=== PATIENT | female | born 1950 | race Caucasian/White ===

== ENCOUNTER → 2016-03-05 | Outpatient (REF) | payer MEDICARE, MEDICAID ==
[~2016-03-05] MED LIST: ASPI1TAB PO; LIPI80TA PO; OMEP20CA3 PO; PLAV75TA38 PO
[2016-03-05 12:43] LABS: BLOOD UREA NITROGEN 11 MG/DL (7-18); CREATININE FOR GFR 0.74 MG/DL (0.55-1.02); GLOMERULAR FILTRATION RATE > 60.0 (>45)
== END ==
LOC: M LABDRAWP 11:38
PROVIDERS: ATTEND Nurse Practitioner
DX: I67.2 Cerebral atherosclerosis (principal)

== ENCOUNTER → 2016-03-05 | Outpatient (REF) | payer MEDICARE, MEDICAID ==
[2016-03-05 12:24] LABS: MEAN CORPUSCULAR HEMOGLOBIN 28.4 pg (27.0-33.0); MEAN CORPUSCULAR HGB CONC 33.2 g/dl (32.0-36.5); MEAN CORPUSCULAR VOLUME 85.5 fl (80.0-96.0); RED CELL DISTRIBUTION WIDTH 13.8 % (11.5-14.5); WHITE BLOOD COUNT 8.8 K/mm3 (4.0-10.0)
[2016-03-05 12:29] LABS: ALBUMIN 3.4 GM/DL (3.2-5.2); ALBUMIN/GLOBULIN RATIO 0.97 (1.00-1.93); ALKALINE PHOSPHATASE 118 U/L (45-117); ALT/SGPT 24 U/L (12-78); ANION GAP 10 MEQ/L (8-16); AST/SGOT 16 U/L (15-37); BILIRUBIN,TOTAL 0.3 MG/DL (0.2-1.0); BLOOD UREA NITROGEN 12 MG/DL (7-18); CALCIUM LEVEL 8.8 MG/DL (8.8-10.2); CARBON DIOXIDE LEVEL 28 MEQ/L (21-32); CHLORIDE LEVEL 108 MEQ/L (98-107); CREATININE FOR GFR 0.65 MG/DL (0.55-1.02); GLOMERULAR FILTRATION RATE > 60.0 (>45); GLUCOSE, FASTING 100 MG/DL (80-110); POTASSIUM SERUM 4.2 MEQ/L (3.5-5.1); SODIUM LEVEL 146 MEQ/L (136-145); TOTAL PROTEIN 6.9 GM/DL (6.4-8.2)
== END ==
LOC: M SFHCPLAZ 08:21
PROVIDERS: ATTEND Nurse Practitioner Family
DX: I69.90 Unspecified sequelae of unspecified cerebrovascular disease (principal); E78.2 Mixed hyperlipidemia; E55.9 Vitamin D deficiency, unspecified; I67.2 Cerebral atherosclerosis

== ENCOUNTER → 2016-08-11 | Outpatient (CLI) | payer MEDICARE, MEDICAID ==
[~2016-08-11] MED LIST changes: +PLAV1TAB2 PO; -PLAV75TA38 PO
--- NOTE | 2016-08-11 12:13 | REP ---
Clinical: Lung screening. History of emphysema . Comparison: 09/05/2015, 03/24/2014 Technique: Axial low-dose noncontrast images from the thoracic inlet to the upper abdomen using lung screening technique. Findings: The lung brewster are well-aerated and demonstrate moderate emphysematous changes and scattered subpleural fibrosis/scarring. Few scattered soft tissue and partially calcified predominantly subpleural nodules are appreciated (right greater than left) which remains stable when compared to 03/24/2014. No consolidation, new significant nodule or mass lesion is appreciated. No pleural effusion/reaction or pneumothorax. Tracheobronchial tree is patent. Mediastinum demonstrates mild atherosclerotic changes of the coronary arteries without cardiomegaly. Impression: Lung-RADS category 2-S. Emphysematous changes and subpleural fibrosis/scarring few scattered stable nodules compared to 2014. No new, significant nodule or mass lesion identified. Recommended management includes annual low-dose CT screening. Signed by Jose Alfredo Mercedes MD 08/11/2016 08:29 A
== END ==
LOC: M RAD 07:13
PROVIDERS: ATTEND Internal Medicine Pulmonary Disease
DX: J43.1 Panlobular emphysema (principal); Z87.891 Personal history of nicotine dependence

== ENCOUNTER → 2016-08-25 | Outpatient (REF) | payer MEDICARE, MEDICAID ==
[2016-08-25 12:07] LABS: FOLATE 5.9 NG/ML; VITAMIN B12 LEVEL 675 PG/ML
[2016-08-25 12:17] LABS: ALBUMIN 3.4 GM/DL (3.2-5.2); ALBUMIN/GLOBULIN RATIO 0.94 (1.00-1.93); ALKALINE PHOSPHATASE 115 U/L (45-117); ALT/SGPT 25 U/L (12-78); ANION GAP 7 MEQ/L (8-16); AST/SGOT 16 U/L (15-37); BILIRUBIN,TOTAL 0.3 MG/DL (0.2-1.0); BLOOD UREA NITROGEN 11 MG/DL (7-18); CALCIUM LEVEL 8.9 MG/DL (8.8-10.2); CARBON DIOXIDE LEVEL 29 MEQ/L (21-32); CHLORIDE LEVEL 107 MEQ/L (98-107); CHOLESTEROL LEVEL 156 MG/DL (<200); CREATININE FOR GFR 0.75 MG/DL (0.55-1.02); GLOMERULAR FILTRATION RATE > 60.0 (>45); GLUCOSE, FASTING 108 MG/DL (80-110); POTASSIUM SERUM 3.5 MEQ/L (3.5-5.1); SODIUM LEVEL 143 MEQ/L (136-145); TRIGLYCERIDES LEVEL 98 MG/DL (<150)
== END ==
LOC: M SFHCPLAZ 07:56
PROVIDERS: ATTEND Nurse Practitioner Family
DX: E78.2 Mixed hyperlipidemia (principal); K21.0 Gastro-esophageal reflux disease with esophagitis; E55.9 Vitamin D deficiency, unspecified

== ENCOUNTER 2017-01-13 10:46 | Day surgery (SDC) | payer MEDICAID, MEDICARE ==
[~2017-01-13] VITALS: Ht 162.6 cm; Wt 68.9 kg
[~2017-01-13 10:46] MED LIST changes: +BIOT50004 PO; +PANT40TA2 PO; +VENTAER INH; +VITA100067 PO; +VITA100072 PO
[2017-01-13] MEDS ORDERED: EPINEPHrine 1MG/ML INJ 30ML MD-VIAL As Ordered ONE (11:22)
[2017-01-13] MEDS ORDERED: METHYLENE BLUE 0.5% (5MG/ML) 10 ML AMP (PROVAYBLUE)(Q9968 PER 1MG) As Ordered ONE (11:22)
[2017-01-13] MEDS ORDERED: LIDOCAINE W/EPINEPHRINE 1% 20ML VIAL As Ordered ONE (11:22)
[2017-01-13] MEDS ORDERED: PROPOFOL 500 MG/50 ML VIAL As Ordered ONE (12:04)
[2017-01-13] MEDS ORDERED: fentaNYL 250 MCG/5 ML INJECTION (J3010) As Ordered ONE (12:04)
[2017-01-13] MEDS ORDERED: MIDAZOLAM INJ 2 MG/2 ML VIAL (J2250) As Ordered ONE (12:04)
[2017-01-13] MEDS ORDERED: LR 1,000 ML IV ONE (12:15)
[2017-01-13] MEDS ORDERED: ONDANSETRON 4MG/2ML VIAL (J2405) As Ordered ONE (12:38)
[2017-01-13] MEDS ORDERED: dexameTHASONE 4 MG/ML 1ML VIAL (J1100) As Ordered ONE (12:39)
[2017-01-13] MEDS ORDERED: NEOSTIGMINE 10 MG/10 ML VIAL (J2710) As Ordered ONE (12:40)
[2017-01-13] MEDS ORDERED: ROCURONIUM BROMIDE 50 MG/5 ML VIAL As Ordered ONE (12:40)
[2017-01-13] MEDS ORDERED: GLYCOPYRROLATE INJ 0.2 MG/ML 2 ML VIAL As Ordered ONE (12:40)
[2017-01-13] MEDS ORDERED: fentaNYL 100 MCG/2 ML INJECTION (J3010) IV PRN (13:45)
[2017-01-13] MEDS ORDERED: METOCLOPRAMIDE INJ 10MG/2ML VIAL (J2765) IV PRN (13:45)
[2017-01-13] MEDS ORDERED: PERCOCET 5MG/325MG TAB PO PRN (13:45)
[2017-01-13] MEDS ORDERED: ONDANSETRON 4MG/2ML VIAL (J2405) IV PRN (13:45)
[2017-01-13] MEDS ORDERED: HYDROmorphone HCL 1 MG/ML SYRINGE (J1170) IV PRN (13:45)
[2017-01-13] MEDS ORDERED: LR 1,000 ML IV SCH ×2 (13:45)
[2017-01-13] MEDS ORDERED: ACETAMINOPH W/CODEINE #3 TAB UD PO PRN (13:45)
[2017-01-13 15:20] VITALS: BP 142/72
--- NOTE | 2017-01-13 17:53 | RO ---
DATE OF PROCEDURE: 01/13/2017 PREOPERATIVE DIAGNOSIS: Nasal septum deviation, chronic rhinitis, nasal wall collapse. POSTOPERATIVE DIAGNOSIS: Nasal septum deviation, chronic rhinitis, nasal wall collapse. OPERATIVE PROCEDURE: Septoplasty, bilateral turbinectomy and nasal wall repair. SURGEON: Dr. Abimael Adler ANESTHESIA: General. PROCEDURE: Under general anesthesia with the patient intubated. The patient was draped in the usual manner. I used pledgets soaked in adrenaline 1:1,000 and infiltrated with lidocaine and epinephrine. I started first by making an incision anterior to the inferior turbinate on both sides. I elevated the mucosa and then using the microdebrider removed a portion of the brayden on both sides. I sutured that with a 4-0 Vicryl. The same procedure was performed on both sides. An incision made anteriorly in the septum and elevated subperichondrial plane. Posterior the septum is deviated towards the right side so I the quadrangular and removed portions of the quadrangular cartilage that were deviated. Once this was done the septum was straight and I closed the incisions with #4-0 Vicryl. Lastly I made an incision anterior to the nasal bone inferiorly on both sides. I elevated the tissues off of the nasal bone inferiorly. I then drilled three holes into the nasal bone on both sides. I then put a #4-0 Vicryl suture through the hole in the nasal bone and then through the inferior lateral aspect of the upper lateral cartilage and then returned that suture through the nasal bone and tied it. This was done with #4-0 Vicryl. The same procedure was performed on both sides. Less than 20 mL of estimated blood loss. Because the patient had without Plavix, I put a Gel Foam packing in the nose on both sides. Patient tolerated the procedure well and was extubated and transferred to the recovery room in excellent condition.
== END 2017-01-13 15:10 | disposition home or self-care (01) ==
LOC: M SDC 10:46
PROVIDERS: ATTEND Otolaryngology
DX: J34.2 Deviated nasal septum (principal); J31.0 Chronic rhinitis; J34.89 Other specified disorders of nose and nasal sinuses; R13.10 Dysphagia, unspecified; K21.0 Gastro-esophageal reflux disease with esophagitis; E78.2 Mixed hyperlipidemia; E55.9 Vitamin D deficiency, unspecified; M54.9 Dorsalgia, unspecified; R91.8 Other nonspecific abnormal finding of lung field; J84.10 Pulmonary fibrosis, unspecified; I63.50 Cerebral infarction due to unspecified occlusion or stenosis of unspecified cerebral artery; B35.4 Tinea corporis; J44.9 Chronic obstructive pulmonary disease, unspecified; Z88.4 Allergy status to anesthetic agent; Z79.899 Other long term (current) drug therapy; Z79.01 Long term (current) use of anticoagulants; Z79.82 Long term (current) use of aspirin; Z86.73 Personal history of transient ischemic attack (TIA), and cerebral infarction without residual deficits; Z87.891 Personal history of nicotine dependence; Z98.51 Tubal ligation status
CPT/HCPCS: 30130; 30465; 30520; 88300; J1100; J2250; J2405; J2710; J3010; Q9968

== ENCOUNTER → 2017-03-03 | Outpatient (REF) | payer MEDICARE, MEDICAID ==
[2017-03-03 15:55] LABS: HEMOGLOBIN 13.5 g/dl (12.0-16.0); MEAN CORPUSCULAR HEMOGLOBIN 28.4 pg (27.0-33.0); MEAN CORPUSCULAR HGB CONC 32.9 g/dl (32.0-36.5); MEAN CORPUSCULAR VOLUME 86.3 fl (80.0-96.0); PLATELET COUNT, AUTOMATED 209 10^3/uL (150-450); RED BLOOD COUNT 4.75 10^6/uL (4.00-5.40); RED CELL DISTRIBUTION WIDTH 13.6 % (11.5-14.5); WHITE BLOOD COUNT 7.8 10^3/uL (4.0-10.0)
[2017-03-03 16:41] LABS: ALBUMIN 3.8 GM/DL (3.2-5.2); ALBUMIN/GLOBULIN RATIO 1.19 (1.00-1.93); ALKALINE PHOSPHATASE 125 U/L (45-117); ALT/SGPT 26 U/L (12-78); ANION GAP 7 MEQ/L (8-16); AST/SGOT 22 U/L (7-37); BILIRUBIN,TOTAL 0.3 MG/DL (0.2-1.0); BLOOD UREA NITROGEN 10 MG/DL (7-18); CALCIUM LEVEL 8.7 MG/DL (8.8-10.2); CARBON DIOXIDE LEVEL 27 MEQ/L (21-32); CHLORIDE LEVEL 109 MEQ/L (98-107); CREATININE FOR GFR 0.79 MG/DL (0.55-1.02); GLOMERULAR FILTRATION RATE > 60.0 (>45); GLUCOSE, FASTING 98 MG/DL (80-110); POTASSIUM SERUM 4.1 MEQ/L (3.5-5.1); SODIUM LEVEL 143 MEQ/L (136-145); TOTAL 25(OH) VITAMIN D 38.4 NG/ML (30.0-100.0)
== END ==
LOC: M SFHCPLAZ 12:48
DX: I69.90 Unspecified sequelae of unspecified cerebrovascular disease (principal); E78.2 Mixed hyperlipidemia; E55.9 Vitamin D deficiency, unspecified
CPT/HCPCS: 80053

== ENCOUNTER → 2017-03-09 | Outpatient (CLI) | payer MEDICARE, MEDICAID | LOC: M WHC 08:20 | DX: K80.20 Calculus of gallbladder without cholecystitis without obstruction (principal); K76.0 Fatty (change of) liver, not elsewhere classified | CPT/HCPCS: 76705 ==

== ENCOUNTER → 2017-05-11 | Outpatient (REF) | payer MEDICARE, MEDICAID ==
[2017-05-14 00:07] LABS: Lyme Disease IgG/IgM Antibodie <0.91 ISR (0.00-0.90); Lyme Disease IgM Ab Quantitati <0.80 index (0.00-0.79)
== END ==
LOC: M SFHCLERA 19:49
DX: L30.8 Other specified dermatitis (principal)
CPT/HCPCS: 86617

== ENCOUNTER 2017-06-02 14:03 | Emergency (ER) | payer MEDICARE, MEDICAID | END 2017-06-02 15:56 | disposition home or self-care (01) | LOC: M ED 14:03 | DX: S83.91XA Sprain of unspecified site of right knee, initial encounter (principal); S80.01XA Contusion of right knee, initial encounter; W00.0XXA Fall on same level due to ice and snow, initial encounter; Y92.096 Garden or yard of other non-institutional residence as the place of occurrence of the external cause; K21.9 Gastro-esophageal reflux disease without esophagitis; E78.9 Disorder of lipoprotein metabolism, unspecified; Z86.73 Personal history of transient ischemic attack (TIA), and cerebral infarction without residual deficits | CPT/HCPCS: 73564 ==

== ENCOUNTER 2017-06-08 07:23 | Day surgery (SDC) | payer MEDICARE, MEDICAID ==
[~2017-06-08 07:23] MED LIST changes: +ACETAMINOPHEN 325 MG TAB PO; -ASPI1TAB PO; -BIOT50004 PO; -LIPI80TA PO; -OMEP20CA3 PO; -PANT40TA2 PO; +PHENYLEPHRINE HCL 10 % OPHTH. SOL 5ML OS; -PLAV1TAB2 PO; -VENTAER INH; -VITA100067 PO; -VITA100072 PO
[2017-06-08] MEDS: OFLOXACIN 0.3 % (OCUFLOX) OPTH SOL 5ML OS (08:00)
[2017-06-08] MEDS: CYCLOPENTOLATE 2% OPHTH SOLN 2ML BTL OS (08:00)
[2017-06-08] MEDS ORDERED: TRIMETHOBENZAMIDE 300 MG CAP PO (08:00)
[2017-06-08] MEDS: LIDOCAINE 3.5 % 1ML OPHTH TOPICAL GEL OU (08:00)
[2017-06-08] MEDS: TROPICAMIDE 1% OPHTH SOLN 2ML OS (08:00)
[2017-06-08] MEDS: PHENYLEPHRINE 2.5% OPHTH SOL 2ML OS (08:00)
[2017-06-08] MEDS ORDERED: MIDAZOLAM INJ 2 MG/2 ML VIAL (J2250) As Ordered (09:17)
[2017-06-08] MEDS ORDERED: fentaNYL 100 MCG/2 ML INJECTION (J3010) As Ordered (09:17)
[2017-06-08] MEDS: LIDOCAINE 1% SDV 5 ML VIAL As Ordered (09:56)
[2017-06-08] MEDS: POVIDONE-IODINE 5% OPHTH PREP SOL 30ML As Ordered (09:57)
[2017-06-08] MEDS: MOXIFLOXACIN IN BSS 0.25MG/0.25ML INTRACAMERAL INJ (OR EYE ONLY)(J2280) As Ordered (10:01)
[2017-06-08] MEDS: TRIAMCINOLONE PRES FR 40 MG/ML 1ML(TRIESENCE)(OR EYE ONLY)(J3300 PER 1MG) As Ordered (10:01)
[2017-06-08] MEDS: BSS with VANC/TOB/EPI for EYE CASES IR (10:02)
[2017-06-08] MEDS: HEALON DUET (HEALON 10MG/ML 0.55ML & HEALON ENDOCOAT 30MG/ML 0.85ML) As Ordered (10:02)
[2017-06-08] MEDS: AcetaZOLAMIDE 500 MG ER CAP PO (10:28)
== END 2017-06-08 10:42 | disposition home or self-care (01) ==
LOC: M SDC 07:23
DX: H25.9 Unspecified age-related cataract (principal); E78.5 Hyperlipidemia, unspecified; K21.9 Gastro-esophageal reflux disease without esophagitis; Z86.73 Personal history of transient ischemic attack (TIA), and cerebral infarction without residual deficits; Z87.891 Personal history of nicotine dependence; Z79.02 Long term (current) use of antithrombotics/antiplatelets; Z79.82 Long term (current) use of aspirin; Z79.899 Other long term (current) drug therapy; Z88.5 Allergy status to narcotic agent
CPT/HCPCS: 66984

== ENCOUNTER 2017-06-16 07:39 | Day surgery (SDC) | payer MEDICARE, MEDICAID ==
[~2017-06-16 07:39] MED LIST changes: +PHENYLEPHRINE HCL 10 % OPHTH. SOL 5ML OD; -PHENYLEPHRINE HCL 10 % OPHTH. SOL 5ML OS
[2017-06-16] MEDS: CYCLOPENTOLATE 2% OPHTH SOLN 2ML BTL OD (08:34)
[2017-06-16] MEDS: PHENYLEPHRINE 2.5% OPHTH SOL 2ML OD (08:34)
[2017-06-16] MEDS: OFLOXACIN 0.3 % (OCUFLOX) OPTH SOL 5ML OD (08:34)
[2017-06-16] MEDS: TROPICAMIDE 1% OPHTH SOLN 2ML OD (08:35)
[2017-06-16] MEDS: LIDOCAINE 3.5 % 1ML OPHTH TOPICAL GEL OU (08:35)
[2017-06-16] MEDS ORDERED: MIDAZOLAM INJ 2 MG/2 ML VIAL (J2250) As Ordered (10:34)
[2017-06-16] MEDS ORDERED: fentaNYL 100 MCG/2 ML INJECTION (J3010) As Ordered (10:34)
[2017-06-16] MEDS: POVIDONE-IODINE 5% OPHTH PREP SOL 30ML As Ordered (10:53)
[2017-06-16] MEDS: HEALON DUET (HEALON 10MG/ML 0.55ML & HEALON ENDOCOAT 30MG/ML 0.85ML) As Ordered (10:53)
[2017-06-16] MEDS: LIDOCAINE 1% SDV 5 ML VIAL As Ordered (10:54)
[2017-06-16] MEDS: TRIAMCINOLONE PRES FR 40 MG/ML 1ML(TRIESENCE)(OR EYE ONLY)(J3300 PER 1MG) As Ordered (10:54)
[2017-06-16] MEDS: BSS with VANC/TOB/EPI for EYE CASES IR (10:54)
[2017-06-16] MEDS: MOXIFLOXACIN IN BSS 0.25MG/0.25ML INTRACAMERAL INJ (OR EYE ONLY)(J2280) As Ordered (10:54)
[2017-06-16] MEDS ORDERED: TRIMETHOBENZAMIDE 300 MG CAP PO (11:15)
[2017-06-16] MEDS: AcetaZOLAMIDE 500 MG ER CAP PO (11:18)
== END 2017-06-16 11:44 | disposition home or self-care (01) ==
LOC: M SDC 07:39
DX: H25.9 Unspecified age-related cataract (principal); E78.5 Hyperlipidemia, unspecified; Z86.73 Personal history of transient ischemic attack (TIA), and cerebral infarction without residual deficits
CPT/HCPCS: 66984

== ENCOUNTER → 2017-07-03 | Outpatient (REF) | payer MEDICARE, MEDICAID ==
[2017-07-03 12:59] LABS: GLOMERULAR FILTRATION RATE > 60.0 (>45)
[2017-07-03 12:59] LABS: BLOOD UREA NITROGEN 9 MG/DL (7-18)
== END ==
LOC: M LABDRAWP 11:39
DX: I67.2 Cerebral atherosclerosis (principal)
CPT/HCPCS: 82565

== ENCOUNTER → 2017-09-03 | Outpatient (REF) | payer MEDICARE, MEDICAID ==
[2017-09-03 12:34] LABS: HEMATOCRIT 43.9 % (36.0-47.0); HEMOGLOBIN 14.1 g/dl (12.0-15.5); MEAN CORPUSCULAR HEMOGLOBIN 28.3 pg (27.0-33.0); MEAN CORPUSCULAR HGB CONC 32.1 g/dl (32.0-36.5); PLATELET COUNT, AUTOMATED 200 10^3/uL (150-450); RED BLOOD COUNT 4.99 10^6/uL (4.00-5.40); RED CELL DISTRIBUTION WIDTH 13.4 % (11.5-14.5)
[2017-09-03 12:43] LABS: ALBUMIN 3.5 GM/DL (3.2-5.2); ALBUMIN/GLOBULIN RATIO 1.03 (1.00-1.93); ALKALINE PHOSPHATASE 113 U/L (45-117); ALT/SGPT 25 U/L (12-78); ANION GAP 8 MEQ/L (8-16); AST/SGOT 21 U/L (7-37); BILIRUBIN,TOTAL 0.4 MG/DL (0.2-1.0); BLOOD UREA NITROGEN 7 MG/DL (7-18); CALCIUM LEVEL 8.9 MG/DL (8.8-10.2); CARBON DIOXIDE LEVEL 27 MEQ/L (21-32); CHLORIDE LEVEL 110 MEQ/L (98-107); CHOLESTEROL LEVEL 135 MG/DL (<200); CHOLESTEROL RISK RATIO 3.375 (<5); CREATININE FOR GFR 0.72 MG/DL (0.55-1.30); GLOMERULAR FILTRATION RATE > 60.0 (>45); GLUCOSE, FASTING 94 MG/DL (70-100); HDL CHOLESTEROL 40 MG/DL (>40); LDL CHOLESTEROL 81.2 MG/DL (<100); NON-HDL-C 95 MG/DL; POTASSIUM SERUM 4.4 MEQ/L (3.5-5.1); SODIUM LEVEL 145 MEQ/L (136-145); TOTAL PROTEIN 6.9 GM/DL (6.4-8.2); TRIGLYCERIDES LEVEL 69 MG/DL (<150)
== END ==
LOC: M SFHCPLAZ 07:56
DX: I69.90 Unspecified sequelae of unspecified cerebrovascular disease (principal); E78.2 Mixed hyperlipidemia; K21.0 Gastro-esophageal reflux disease with esophagitis
CPT/HCPCS: 83735

== ENCOUNTER → 2017-12-24 | Outpatient (REF) | payer MEDICARE, MEDICAID ==
[2017-12-24 12:44] LABS: TOTAL 25(OH) VITAMIN D 25.6 NG/ML (30.0-100.0)
== END ==
LOC: M SFHCPLAZ 08:40
DX: E55.9 Vitamin D deficiency, unspecified (principal)
CPT/HCPCS: 82306

== ENCOUNTER → 2018-01-18 | Outpatient (REF) | payer MEDICARE, MEDICAID ==
[2018-01-18 16:15] LABS: BLOOD UREA NITROGEN 9 MG/DL (7-18)
[2018-01-18 16:15] LABS: CREATININE FOR GFR 0.76 MG/DL (0.55-1.30); GLOMERULAR FILTRATION RATE > 60.0 (>45)
== END ==
LOC: M LABDRAW1 11:45
DX: R22.31 Localized swelling, mass and lump, right upper limb (principal)
CPT/HCPCS: 82565

== ENCOUNTER → 2018-02-02 | Outpatient (CLI) | payer MEDICARE, MEDICAID ==
[~2018-02-02] MED LIST changes: -ACETAMINOPHEN 325 MG TAB PO; +ALPR0.5T3; +ASPI1TAB PO; +BIOT50004 PO; +FISH1000 PO; +LIPI80TA PO; +MULT1TAB15 PO; +OMEP20CA3 PO; +PANT40TA3 PO; -PHENYLEPHRINE HCL 10 % OPHTH. SOL 5ML OD; +PLAV1TAB2 PO; +VENTAER INH; +VITA100067 PO; +VITA100072 PO; +VITA50005
--- NOTE | 2018-02-02 11:49 | REP ---
Low-dose chest CT without contrast: History: Lung cancer screening. History of nicotine dependence. There are multiple previous chest CTs, the most recent of which is from August 11, 2016 and the most remote of which is from March 10, 2013. CT findings: There is a stable benign 9 mm pleural-based nodule in the right apex posteriorly. This is unchanged from the 2014 study. There is emphysematous change and interstitial fibrosis in the upper lobes, also unchanged. There is a 5 mm nodule in the right upper lobe on image 21 of 85 in today's study which is unchanged from the prior studies dating back to 2013 as well. There is a stable pleural based nodule in the right lower lobe on page 45 unchanged from the 2014 prior studies. This measures 6 mm in greatest diameter. There is a 6 mm pleural-based nodule in the left lower lobe on page 28 which is unchanged from all the prior studies as well. No new pulmonary nodule is appreciated. Exam is otherwise unremarkable. Impression: Lung-RADS category 2 benign findings unchanged. Recommend a repeat screening in 1 year. Electronically Signed by Zach Arechiga MD 02/02/2018 11:50 A
== END ==
LOC: M RAD 10:31
PROVIDERS: ATTEND Internal Medicine Pulmonary Disease
DX: Z12.2 Encounter for screening for malignant neoplasm of respiratory organs (principal); R91.1 Solitary pulmonary nodule; Z87.891 Personal history of nicotine dependence

== ENCOUNTER → 2018-06-24 | Outpatient (REF) | payer MEDICARE, MEDICAID ==
[~2018-06-24] MED LIST changes: -ASPI1TAB PO; +ASPI81TA26 PO; +VITA100018 PO; -VITA100072 PO
[2018-06-24 12:18] LABS: ALBUMIN 3.7 GM/DL (3.2-5.2); ALT/SGPT 24 U/L (12-78); BILIRUBIN,TOTAL 0.4 MG/DL (0.2-1.0); BLOOD UREA NITROGEN 9 MG/DL (7-18); CALCIUM LEVEL 8.7 MG/DL (8.8-10.2); CARBON DIOXIDE LEVEL 28 MEQ/L (21-32); CHLORIDE LEVEL 107 MEQ/L (98-107); CHOLESTEROL LEVEL 142 MG/DL (<200); CHOLESTEROL RISK RATIO 3.227 (<5); CREATININE FOR GFR 0.83 MG/DL (0.55-1.30); GLOMERULAR FILTRATION RATE > 60.0 (>45); GLUCOSE, FASTING 96 MG/DL (70-100); HDL CHOLESTEROL 44 MG/DL (>40); LDL CHOLESTEROL 80 MG/DL (<100); NON-HDL-C 98 MG/DL; POTASSIUM SERUM 3.7 MEQ/L (3.5-5.1); SODIUM LEVEL 143 MEQ/L (136-145); TOTAL PROTEIN 6.8 GM/DL (6.4-8.2); TRIGLYCERIDES LEVEL 90 MG/DL (<150)
[2018-06-24 12:23] LABS: TOTAL 25(OH) VITAMIN D 38.7 NG/ML (30.0-100.0)
== END ==
LOC: M SFHCPLAZ 08:48
PROVIDERS: ATTEND Nurse Practitioner Family
DX: I69.90 Unspecified sequelae of unspecified cerebrovascular disease (principal); E78.2 Mixed hyperlipidemia; K21.0 Gastro-esophageal reflux disease with esophagitis; E55.9 Vitamin D deficiency, unspecified; Z79.899 Other long term (current) drug therapy

== ENCOUNTER → 2018-11-03 | Outpatient (REF) | payer MEDICARE, MEDICAID ==
[~2018-11-03] MED LIST changes: -OMEP20CA3 PO; +OMEP20CA4 PO
[2018-11-03 16:09] LABS: BLOOD UREA NITROGEN 8 MG/DL (7-18); CREATININE FOR GFR 0.86 MG/DL (0.55-1.30); GLOMERULAR FILTRATION RATE > 60.0 (>45)
== END ==
LOC: M LABDRAWP 13:05
PROVIDERS: ATTEND Student in an Organized Health Care Education/Training Program
DX: I66.02 Occlusion and stenosis of left middle cerebral artery (principal)

== ENCOUNTER → 2018-12-15 | Outpatient (REF) | payer MEDICARE ==
[2018-12-15 11:45] LABS: ALBUMIN 3.5 GM/DL (3.2-5.2); ALT/SGPT 21 U/L (12-78); BILIRUBIN,TOTAL 0.4 MG/DL (0.2-1.0); BLOOD UREA NITROGEN 7 MG/DL (7-18); CARBON DIOXIDE LEVEL 25 MEQ/L (21-32); CHLORIDE LEVEL 109 MEQ/L (98-107); CHOLESTEROL LEVEL 135 MG/DL (<200); CHOLESTEROL RISK RATIO 2.934 (<5); CREATININE FOR GFR 0.83 MG/DL (0.55-1.30); GLOMERULAR FILTRATION RATE > 60.0 (>45); GLUCOSE, FASTING 111 MG/DL (70-100); HDL CHOLESTEROL 46 MG/DL (>40); LDL CHOLESTEROL 71 MG/DL (<100); NON-HDL-C 89 MG/DL; POTASSIUM SERUM 3.7 MEQ/L (3.5-5.1); SODIUM LEVEL 142 MEQ/L (136-145); TRIGLYCERIDES LEVEL 89 MG/DL (<150)
[2018-12-15 11:51] LABS: TOTAL 25(OH) VITAMIN D 27.5 NG/ML (30.0-100.0)
== END ==
LOC: M SFHCPLAZ 08:40
PROVIDERS: ATTEND Nurse Practitioner Family
DX: E78.2 Mixed hyperlipidemia (principal); E55.9 Vitamin D deficiency, unspecified

== ENCOUNTER → 2019-03-07 | Outpatient (CLI) | payer MEDICARE ==
[~2019-03-07] MED LIST changes: +OMEP1CAP73 PO; -OMEP20CA4 PO
--- NOTE | 2019-03-08 08:46 | REP ---
CT chest without contrast: Low-dose screening study. History: Lung cancer screening. Nicotine dependence. Comparison is made with multiple prior chest CTs, the most recent of which is from February 02, 2018 and the most remote is from August 29, 2013. There are emphysematous changes in the upper lobes. Pleuroparenchymal fibrotic changes are seen in the lower lobes bilaterally, right greater than left and in the upper lobes bilaterally, again a little more prominently on the right than the left. There is no new significant pulmonary nodular opacity. Stable nodular opacities are again seen unchanged from multiple studies dating back to the 2013 exam. These can be found on pages 18, 19, 23, 31, 42, and 51 of 91 in series 201 of today's study. Impression: Lung-RADS category 2 benign findings unchanged. Repeat screening in 1 year suggested. Electronically Signed by Zach Arechiga MD 03/08/2019 09:54 A
== END ==
LOC: M RAD 10:13
PROVIDERS: ATTEND Internal Medicine Pulmonary Disease
DX: Z87.891 Personal history of nicotine dependence (principal)

== ENCOUNTER 2019-05-13 20:07 | Day surgery (SDC) | payer MEDICARE ==
[~2019-05-13] VITALS: Ht 162.6 cm; Wt 70.5 kg
[2019-05-13] MEDS ORDERED: B-12100021 PO (20:14)
[2019-05-13] MEDS ORDERED: GLUCAGON FOR INJ 1 MG VIAL (J1610) IV STA ×2 (20:41→21:20)
[2019-05-13] MEDS ORDERED: NS 1,000 ML IV ONE (20:45)
[2019-05-13] MEDS ORDERED: ATOR1TAB19 PO (22:33)
[2019-05-13] MEDS ORDERED: propofoL 200 MG/20 ML VIAL As Ordered ONE (22:37)
[2019-05-13] MEDS ORDERED: LIDOCAINE 2% INJ 100 MG/5 ML SDV (FOR ANES.) As Ordered ONE (22:37)
[2019-05-13] MEDS ORDERED: fentaNYL 100 MCG/2 ML INJECTION (J3010) As Ordered ONE (22:38)
[2019-05-13] MEDS ORDERED: ROCURONIUM BROMIDE 50 MG/5 ML VIAL As Ordered ONE (22:41)
[2019-05-13] MEDS ORDERED: SUCCINYLCHOLINE 100 MG/5 ML SYRINGE (J0330) As Ordered ONE (22:42)
[2019-05-13] MEDS ORDERED: dexameTHASONE 4 MG/ML 1ML VIAL (J1100) As Ordered ONE (23:06)
[2019-05-13] MEDS ORDERED: ONDANSETRON 4MG/2ML VIAL (J2405) As Ordered ONE (23:14)
--- NOTE | 2019-05-13 23:21 | ROOR ---
Patient Name: Angi Narvaez Procedure Date: 05/13/2019 10:29 PM Date of : 1950 Age: 68 Gender: Female Note Status: Finalized Procedure: Upper GI endoscopy Indications: Foreign body in the esophagus Providers: Sonny WESTBROOK MD Referring MD: 2. Inpatient 2. Inpatient Requesting Provider: Medicines: Monitored Anesthesia Care Complications: No immediate complications. Procedure: Pre-Anesthesia Assessment: - The heart rate, respiratory rate, oxygen saturations, blood pressure, adequacy of pulmonary ventilation, and response to care were monitored throughout the procedure. The Endoscope was introduced through the mouth, and advanced to the second part of duodenum. The upper GI endoscopy was accomplished without difficulty. The patient tolerated the procedure well. Findings: Mildly severe esophagitis was found at the gastroesophageal junction. Food was found in the lower third of the esophagus. Removal of food was accomplished. The entire examined stomach was normal. The examined duodenum was normal. Impression: - Food in the lower third of the esophagus. Removal was successful. - Mild reflux esophagitis with distal taper perhaps mild stenosis. No high grade stricture. - Normal stomach. - Normal examined duodenum. Recommendation: - Return to my office at the next available appointment. - Use Prilosec (omeprazole) 40 mg PO daily indefinitely. - Soft diet indefinitely. - Repeat upper endoscopy at the next available appointment to check healing and for retreatment/consideration for dilation. Sonny Westbrook MD Sonny WESTBROOK MD 05/13/2019 11:21:12 PM Electronically signed by Sonny WESTBROOK MD Number of Addenda: 0 Note Initiated On: 05/13/2019 10:29 PM Estimated Blood Loss: Estimated blood loss: none.
[2019-05-13] MEDS ORDERED: fentaNYL 100 MCG/2 ML INJECTION (J3010) IV PRN (23:45)
[2019-05-13] MEDS ORDERED: LR 1,000 ML IV SCH (23:45)
[2019-05-13] MEDS ORDERED: ONDANSETRON 4MG/2ML VIAL (J2405) IV PRN (23:45)
[2019-05-14 00:05] VITALS: BP 123/102
== END 2019-05-14 00:29 | disposition home or self-care (01) ==
LOC: M ED 20:07 → M SDC 20:08 → M MS5PR 05-14 00:02 → M SDC 05-14 00:29
PROVIDERS: ATTEND Internal Medicine Gastroenterology
DX: T18.120A Food in esophagus causing compression of trachea, initial encounter (principal); Y92.89 Other specified places as the place of occurrence of the external cause; K21.0 Gastro-esophageal reflux disease with esophagitis; E78.5 Hyperlipidemia, unspecified; J44.9 Chronic obstructive pulmonary disease, unspecified; I11.9 Hypertensive heart disease without heart failure; Z87.19 Personal history of other diseases of the digestive system; I69.311 Memory deficit following cerebral infarction; I69.393 Ataxia following cerebral infarction; Z79.899 Other long term (current) drug therapy; Z79.82 Long term (current) use of aspirin; Z79.02 Long term (current) use of antithrombotics/antiplatelets; Z88.5 Allergy status to narcotic agent; Z88.4 Allergy status to anesthetic agent
CPT/HCPCS: 43247; 96374; 96376; 99284; J0330; J1100; J1610; J2405; J3010

== ENCOUNTER → 2019-06-28 | Outpatient (REF) | payer MEDICARE ==
[~2019-06-28] MED LIST changes: +ATOR1TAB19 PO; +B-12100021 PO
[2019-06-28 17:32] LABS: ALBUMIN 3.5 GM/DL (3.2-5.2); ALT/SGPT 25 U/L (12-78); BILIRUBIN,TOTAL 0.4 MG/DL (0.2-1.0); BLOOD UREA NITROGEN 6 MG/DL (7-18); CALCIUM LEVEL 9.3 MG/DL (8.8-10.2); CARBON DIOXIDE LEVEL 28 MEQ/L (21-32); CHLORIDE LEVEL 106 MEQ/L (98-107); CREATININE FOR GFR 0.76 MG/DL (0.55-1.30); GLOMERULAR FILTRATION RATE > 60.0 (>45); GLUCOSE, FASTING 67 MG/DL (70-100); MAGNESIUM LEVEL 1.9 MG/DL (1.8-2.4); POTASSIUM SERUM 3.4 MEQ/L (3.5-5.1); SODIUM LEVEL 141 MEQ/L (136-145); TOTAL PROTEIN 7.1 GM/DL (6.4-8.2)
[2019-06-28 17:39] LABS: TOTAL 25(OH) VITAMIN D 23.9 NG/ML (30.0-100.0)
[2019-06-28 17:40] LABS: FOLATE 10.8 NG/ML; VITAMIN B12 LEVEL 868 PG/ML
== END ==
LOC: M SFHCPLAZ 14:52
PROVIDERS: ATTEND Nurse Practitioner Family
DX: I69.90 Unspecified sequelae of unspecified cerebrovascular disease (principal); K21.0 Gastro-esophageal reflux disease with esophagitis; E55.9 Vitamin D deficiency, unspecified

== ENCOUNTER → 2019-11-29 | Outpatient (CLI) | payer MEDICARE ==
[~2019-11-29] MED LIST changes: +PANT40TA29 PO; -PANT40TA3 PO
[2019-11-29 14:10] LABS: HEPATITIS B SURFACE ANTIBODY POSITIVE (POSITIVE); HEPATITIS B SURFACE ANTIGEN NEGATIVE (NEGATIVE); HEPATITIS C VIRUS ABY INDEX 0.1 INDEX (<0.8); HIV 1&2 SCREEN CENTAUR NEGATIVE (NEGATIVE)
== END ==
LOC: M LAB 12:02
PROVIDERS: ATTEND Dermatology
DX: Z79.899 Other long term (current) drug therapy (principal)

== ENCOUNTER → 2019-12-13 | Outpatient (REF) | payer MEDICARE ==
[2019-12-13 14:43] LABS: ALBUMIN 3.5 GM/DL (3.2-5.2); ALT/SGPT 27 U/L (12-78); BILIRUBIN,TOTAL 0.4 MG/DL (0.2-1.0); BLOOD UREA NITROGEN 7 MG/DL (7-18); CARBON DIOXIDE LEVEL 28 MEQ/L (21-32); CHLORIDE LEVEL 108 MEQ/L (98-107); CHOLESTEROL LEVEL 149 MG/DL (<200); CHOLESTEROL RISK RATIO 3.386 (<5); CREATININE FOR GFR 0.84 MG/DL (0.55-1.30); GLOMERULAR FILTRATION RATE > 60.0 (>45); GLUCOSE, FASTING 88 MG/DL (70-100); HDL CHOLESTEROL 44 MG/DL (>40); LDL CHOLESTEROL 85 MG/DL (<100); NON-HDL-C 105 MG/DL; POTASSIUM SERUM 3.9 MEQ/L (3.5-5.1); SODIUM LEVEL 140 MEQ/L (136-145); TOTAL PROTEIN 7.2 GM/DL (6.4-8.2); TRIGLYCERIDES LEVEL 99 MG/DL (<150)
[2019-12-13 14:50] LABS: TOTAL 25(OH) VITAMIN D 28.3 NG/ML (30.0-100.0)
== END ==
LOC: M SFHCPLAZ 11:13
PROVIDERS: ATTEND Nurse Practitioner Family
DX: E78.2 Mixed hyperlipidemia (principal); E55.9 Vitamin D deficiency, unspecified; Z23 Encounter for immunization
CPT/HCPCS: 36415; 80053; 80061; 82306; 90682; G0008; G0463

== ENCOUNTER 2020-03-20 14:29 | Inpatient (IN) | payer MEDICARE ==
[~2020-03-20] VITALS: Ht 162.6 cm; Wt 71.7 kg
--- OUTSIDE RECORDS SUMMARY | 2020-03-20 14:41 | CCD ---
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 Active 845855808 Problem Cerebral artery occlusion with cerebral infarction I63.50 Active 2277441036266 Problem Mixed hyperlipidemia E78.2 Active 197941937 Problem Gastroesophageal reflux disease, esophagitis pre sence not specified K21.9 Active 997715325 Problem Interstitial pulmonary fibrosis J84.10 Active 670848522 Problem Pulmonary nodules/lesions, multiple R91.8 Acti ve 350633985 Problem Chronic congestion of paranasal sinus J32.9 Ac tive 85392853 Problem Dyspepsia R10.13 Active 431929386 Problem Fatty liver K76.0 Active 162114013 Problem Seborrheic keratoses L82.1 Active 538556812 Problem Vitamin D deficiency E55.9 Active 09511740 Problem 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 Active 62411108 Problem Panic anxiety syndrome F41.0 Active 809440902 Problem GERD with esophagitis K21.0 Active 587858887 Problem Cervical pain (neck) M54.2 Active 26270222 Problem Age-related nuclear cataract of left eye H25.12 Active 400853577358134 Problem Lentigines L81.4 Active 646486503 Problem Granuloma annulare L92.0 Active 74797074 Problem Lichen simplex chronicus L28.0 Active 1808299 4 ALLERGIES Allergen (clinical drug ingredient) Drug/Non Drug Allergy do cumented on EMR Reaction Allergy Type Onset Date Status duloxetine Cymbalta([facility] Code:[address]-43) intolerant Drug Allergy Active Novacaine Swelling Non Drug Allergy Active ENCOUNTERS from 1950 to 2020-01-18 Encounter Location Date Provider Diagnosis [address] [id number] 24 Dec, 2 020 Blanche Graff 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 ; Gastroesophageal reflux disease, esophagitis presence not specified K21.9 ; Dysphagia, unspecified R13.10 ; Vitamin D deficiency E55.9 and Mixed hyperlipidemia E78.2 IMMUNIZATIONS Vaccine Route Administration Date Status Influenza (18 yrs & older) Flublok IM Intramuscular Dec 29, 2017 Administered Influenza (High Dose 65 & up) IM Intramuscular Dec 25, 2016 A dministered Pneumococcal Adult 0.5mL (Pneumovax 23) IM Intramuscular August Administered Pneumococcal 0.5mL (Prevnar 13) IM Intramuscular Dec 25, 2016 Administered Influenza (6mo & up) Fluzone Unknown Jan 20, 2016 Adm inistered Influenza (6mo & up) Fluzone IM Intramuscular Dec 27, 2014 Ad ministered Influenza (18 yrs & older) Flublok IM Intramuscular Dec 13, 2019 Administered Influenza (6mo & up) Fluzone IM Intramuscular Nov 16, 2013 Ad ministered Influenza (18 yrs & older) Flublok IM Intramuscular Dec 31, 2018 Administered Influenza (6mo & up) Fluzone IM Intramuscular Dec 28, 2012 Ad ministered zz*Influenza Preservative Free (36 months & up) Unknown Dec 29, 2017 Pending SOCIAL HISTORY Tobacco Use: Social History Observation Description Date Details (start date - stop date) Former Smoker Sex Assigned At : Social History Observation Description Sex Assigned At Unknown Education: Question Answer Notes Level of Education: High School Audit Question Answer Notes Total Score: 0 Interpretation: Alcohol Education Language: Question Answer Notes Languages spoken: Dutch Tenriism: Question Answer Notes Tenriism 21 Quaker Sexual Hx: Question Answer Notes Had sex in the last 12 months (vaginal, oral, or anal)? No Have you ever had an STD? No Drug and Alcohol Question Answer Notes Total Score: 0 Interpretation: No problems reported Alcohol Screening: Question Answer Notes Did you have a drink containing alcohol in the past year? No Points 0 Interpretation Negative Tobacco Use: Question Answer Notes Are you a: former smoker How long has it been since you last smoked? 1-5 years REASON FOR REFERRAL No Information VITAL SIGNS Weight 161 lbs Dec, Height 63 in Dec, BMI 28.52 kg/m2 Dec, Heart Rate 82 /min Dec, Respiratory Rate 18 /min Dec, Temperature 98 degrees Fahrenheit Dec, Oximetry 95 Dec, Blood pressure systolic 120 mm Hg Dec, Blood pressure diastolic 80 mm Hg Dec, MEDICATIONS Medication SIG (Take, Route, Frequency, Duration) Notes Start Da te End Date Status Plavix 75 mg 1 tablet Orally Once a day for 90 day(s) Active Humira 40 MG/0.4ML 0.4 ml Subcutaneous Inject 0 .4 mL every 2 weeks after starter dosing completed for 84 days Nov, Not -Taking Vitamin B12 1000 MCG as directed Orally Active Pantoprazole Sodium 40 MG 1 tablet Orally once daily as needed Active Humira 40 MG/0.4ML 0.4 ml Subcutaneous Inject 0 .8 mL day 1 then 0.4 mL day 8 and day 22 for 21 day(s) Nov, Not-Taking Tylenol 8 Hour 650 MG 4 tabs Orally two - three times as needed Active Aspir-81 81 MG 1 tablet Orally Once a day Active Vitamin D3 25 MCG 2 tablets Orally Once a day with meal for 30 day(s) Active Lipitor 10 MG 1 tablet Orally Once a day for 30 Days Active PROCEDURES No Information RESULTS No Results REASON FOR VISIT f/up after labs MEDICAL (GENERAL) HISTORY Type Description Date Medical History dysphagia Medical History Esophageal reflux Medical History hyperlipidemia Medical History back pain/ neck pain Medical History CVA (cerebral vascular accident), left M CA - neurology Medical History Pulmonary nodules/lesions, multiple - Dr Lorenzana Medical History Interstitial pulmonary fibrosis Medical History fatty liver - sono 02/2017 Surgical History tubal ligation 79 Surgical History EGD x 2 with leslee ABARCA, Dr Johan [place] 2008 Surgical History EGD, Leslee ABARCA dilat ed, esophagitis (benign bx) - Dr Westbrook 05/30 Surgical History colonoscopy, polyp, internal hemorrhoids - D[facility] (benign, repeat 10yrs) 05/30 Surgical History R carpal tunnel trigger thumb 09-04-14 Surgical History Deviated nasal septum 01/13/17 Surgical History Left eye cataract then right eye catarac t Dr. Loredo 05/2017 then 06/2017 Surgical History Right hand - Dr. Rosario @ [facility] 04/28/18 Hospitalization History acute left MCA stroke with expressiv e aphasia 11/10-11/12/13 Hospitalization History choking 04/2019 Hospitalization History choking 09/2019 Goals Section No Information Health Concerns No Information MEDICAL EQUIPMENT No Information MENTAL STATUS No Information FUNCTIONAL STATUS No Information ASSESSMENTS Encounter Date Diagnosis Assessment Notes Treatment Notes Treatm ent Clinical Notes Dec, Late effects of cerebrovascular disease (ICD-10 - I69.90) Dec, Gastroesophageal reflux dise ase, esophagitis presence not specified (ICD-10 - K21.9) avoid bedtime snack Dec, Dysphagia, unspecified (ICD-10 - R13.10) advised small frequent meals - cut food up into very small bites or shred meat, chew slowly and carefully Dec, Vitamin D deficiency (ICD-10 - E55.9) increase Vit D - take with meal Dec, Mixed hyperlipidemia (ICD-10 - E78.2) labs at goal continue on statin - repeat labs yearly PLAN OF TREATMENT Medication Medication Name Sig Start Date Stop Date Plavix 75 mg 1 tablet Orally Once a day for 90 day(s) Aspir-81 81 MG 1 tablet Orally Once a day Pantoprazole Sodium 40 MG 1 tablet Orally once daily as needed Vitamin D3 25 MCG 2 tablets Orally Once a day with meal for 30 d ay(s) Lipitor 10 MG 1 tablet Orally Once a day for 30 Days Vitamin B12 1000 MCG as directed Orally Treatment Notes Assessment Notes Clinical Notes Gastroesophageal reflux disease, esophagitis presence not specified avoid bedtime snack Dysphagia, unspecified advised small frequent meals - cut food up into very small bites or shred meat, chew slowly and carefully Vitamin D deficiency increase Vit D - take with meal Mixed hyperlipidemia labs at goal continue on statin - repe at labs yearly Future Test Test Name Order Date Comprehensive Metabolic Profile (CMP) [id number] CBC - Complete Blood Count 20200625 VITAMIN D 25-HYDROXY [id number] Next Appt Details 6 Months (30min) Reason:f/u after labs Provider Name:Carter Cardona, 2020-02 11:00:00 AM, [address] [facility], [address], [place], [address], Provider Name:Blanche Graff, 2020-07-10 10:3 0:00 AM, [address] [place], [address], Follow Up:6 Months (30min)f/u after labs Insurance Providers Payer Name Payer Address Payer Phone Insured Name Patient Relati onship to Insured Coverage Start Date Coverage End Date AETNA MEDICARE AETNA Dealised INSURANCE [facility] [address] [facility] [id number] EUGENE [id number] self
--- OUTSIDE RECORDS SUMMARY | 2020-03-20 14:42 | CCD ---
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 Name Role Phone STELLA GREEN MD Unavailable Unavailable STELLA GREEN MD Unavailable Unavailable STELLA GREEN MD Unavailable Unavailable STELLA GREEN MD Unavailable Unavailable STELLA GREEN MD Unavailable Unavailable STELLA GREEN MD Unavailable Unavailable STELLA GREEN MD Unavailable Unavailable STELLA GREEN MD Unavailable Unavailable STELLA GREEN MD Unavailable Unavailable STELLA GREEN MD Unavailable Unavailable STELLA GREEN MD Unavailable Unavailable STELLA GREEN MD Unavailable Unavailable STELLA GREEN MD Unavailable Unavailable STELLA GREEN MD Unavailable Unavailable STELLA GREEN MD Unavailable Unavailable STELLA GREEN MD Unavailable Unavailable STELLA GREEN MD Unavailable Unavailable STELLA GREEN MD Unavailable Unavailable STELLA GREEN MD Unavailable Unavailable STELLA GREEN MD Unavailable Unavailable STELLA GREEN MD Unavailable Unavailable STELLA GREEN MD Unavailable Unavailable STELLA GREEN MD Unavailable Unavailable STELLA GREEN MD Unavailable Unavailable STELLA GREEN MD Unavailable Unavailable STELLA GREEN MD Unavailable Unavailable STELLA GREEN MD Unavailable Unavailable STELLA GREEN MD Unavailable Unavailable STELLA GREEN MD Unavailable Unavailable STELLA GREEN MD Unavailable Unavailable STELLA GREEN MD Unavailable Unavailable STELLA GREEN MD Unavailable Unavailable STELLA GREEN MD Unavailable Unavailable Henrik Boo MD Unavailable Unavailable Henrik Boo MD Unavailable Unavailable Rajeev O Samah Unavailable Unavailable Henrik Boo MD Unavailable Unavailable Rajeev O Cristinoah Unavailable Unavailable Henrik Boo MD Unavailable Unavailable Rajeev O Cristinoah Unavailable Unavailable Rajeev O Cristinoah Unavailable Unavailable Rajeev, O Cristinoah Unavailable Unavailable Rajeev O Cristinoah Unavailable Unavailable Rajeev O Cristinoah Unavailable Unavailable Henrik Boo MD Unavailable Unavailable Rajeev O Cristinoah Unavailable Unavailable Rajeev O Cristinoah Unavailable Unavailable Rajeev O Karan WATSON Unavailable Unavailable Rajeev O Karan WATSON Unavailable Unavailable Henrik Boo MD Unavailable Unavailable Rajeev O Karan WATSON Unavailable Unavailable Henrik Boo MD Unavailable Unavailable Rajeev O Cristinoah Unavailable Unavailable Rajeev O Karan WATSON Unavailable Unavailable Rajeev O Karan WATSON Unavailable Unavailable Henrik Boo MD Unavailable Unavailable Rajeev O Cristinoah Unavailable Unavailable Rajeev O Cristinoah Unavailable Unavailable Rajeev O Cristinoah Unavailable Unavailable Rajeev O Karan WATSON Unavailable Unavailable Rajeev O Karan WATSON Unavailable Unavailable Rajeev O Karan WATSON Unavailable Unavailable Rajeev O Cristinoah Unavailable Unavailable Rajeev O Samah Unavailable Unavailable Rajeev, O Samah Unavailable Unavailable Rajeev O Cristinoah Unavailable Unavailable Rajeev O Samah Unavailable Unavailable Rajeev O Cristinoah Unavailable Unavailable Rajeev, O Samah Unavailable Unavailable Rajeev O Cristinoah Unavailable Unavailable Rajeev, O Samah Unavailable Unavailable Rajeev O Cristinoah Unavailable Unavailable Rajeev, O Samah Unavailable Unavailable Rajeev, O Samah MD Unavailable Unavailable Rajeev, O Samah MD Unavailable Unavailable Rajeev, O Samah MD Unavailable Unavailable Rajeev, O Samah MD Unavailable Unavailable Rajeev, O Samah MD Unavailable Unavailable Rajeev, O Samah MD Unavailable Unavailable Rajeev, O Samah MD Unavailable Unavailable Rajeev, O Samah MD Unavailable Unavailable Rajeev, O Samah MD Unavailable Unavailable Rajeev, O Samah MD Unavailable Unavailable Rajeev, O Samah MD Unavailable Unavailable Rajeev, O Samah MD Unavailable Unavailable Rajeev, O Samah MD Unavailable Unavailable Rajeev, O Samah MD Unavailable Unavailable Rajeev, O Samah MD Unavailable Unavailable Rajeev, O Samah MD Unavailable Unavailable Rajeev, O Samah MD Unavailable Unavailable Rajeev, O Samah MD Unavailable Unavailable Rajeev, O Samah MD Unavailable Unavailable Rajeev, O Samah MD Unavailable Unavailable Rajeev, O Samah MD Unavailable Unavailable Rajeev, O Samah MD Unavailable Unavailable Rajeev, O Samah MD Unavailable Unavailable Rajeev, O Samah MD Unavailable Unavailable Rajeev, O Samah MD Unavailable Unavailable Rajeev, O Samah MD Unavailable Unavailable Rajeev, O Samah MD Unavailable Unavailable Rajeev, O Samah MD Unavailable Unavailable Rajeev, O Samah MD Unavailable Unavailable Rajeev, O Samah MD Unavailable Unavailable Rajeev, O Samah MD Unavailable Unavailable Rajeev, O Samah MD Unavailable Unavailable Rajeev, O Samah MD Unavailable Unavailable Rajeev, O Samah MD Unavailable Unavailable Rajeev, O Samah MD Unavailable Unavailable Rajeev, O Samah MD Unavailable Unavailable Re-disclosure Warning The records that you are about to access may contain information from federally-assisted alcohol or drug abuse programs. If such information is present, then the following federally mandated warning applies: This information has been disclosed to you from records protected by federal confidentiality rules (42 CFR part 2). The federal rules prohibit you from making any further disclosure of this information unless further disclosure is expressly permitted by the written consent of the person to whom it pertains or as otherwise permitted by 42 CFR part 2. A general authorization for the release of medical or other information is NOT sufficient for this purpose. The Federal rules restrict any use of the information to criminally investigate or prosecute any alcohol or drug abuse patient.The records that you are about to access may contain highly sensitive health information, the redisclosure of which is protected by Article 27-F of the [facility] Public Health law. If you continue you may have access to information: Regarding HIV / AIDS; Provided by facilities licensed or operated by the [facility] Office of Mental Health; or Provided by the [facility] Office for People With Developmental Disabilities. If such information is present, then the following [facility] mandated warning applies: This information has been disclosed to you from confidential records which are protected by state law. State law prohibits you from making any further disclosure of this information without the specific written consent of the person to whom it pertains, or as otherwise permitted by law. Any unauthorized further disclosure in violation of state law may result in a fine or fpc sentence or both. A general authorization for the release of medical or other information is NOT sufficient authorization for further disc losure. Allergies and Adverse Reactions Type Description Substance Reaction Status Data Source(s ) Drug allergy Cymbalta duloxetine intolerant Active eCW1 ([facility]) Novacaine Novacaine Novacaine Swelling Active eCW1 ([facility]) Novacaine Novacaine Novacaine Swelling Active eCW1 ([facility]) Novacaine Novacaine Novacaine Swelling Active eCW1 ([facility]) Family History Family Member Name Family Member Gender Family Member Status Date o f Status Description Data Source(s) Unknown Unknown Problem MEDENT ([facility]) Unknown Female Problem MEDENT ([facility]) Encounters Encounter Providers Location Date Indications Data Source(s ) [place] [address] [facility] [place] [address] 01/10/2020 12:00:00 AM EST eCW1 ([facility]) Unknown [address] [facility] [place] [address] 12/15/2019 12:00:00 AM EDT eCW1 ([facility]) Outpatient [address] [facility] [place] [address] 12/13/2019 12:00:00 AM EDT eCW1 ([facility]) Unknown [address] [facility] [place] [address] 12/13/2019 12:00:00 AM EDT eCW1 ([facility]) Unknown [address] [facility] [place] [address] 12/13/2019 12:00:00 AM EDT eCW1 ([facility]) Outpatient [address] [facility] [place] [address] 11/29/2019 12:00:00 AM EDT eCW1 ([facility]) [facility] [address] [facility] [place] [address] 08/29/2019 12:00:00 AM EDT eCW1 ([facility]) [facility] [address] [place] [address] 07/05/2019 12:00:00 AM EDT eCW1 ([facility]) [facility] [address] [facility] [place] [address] 06/29/2019 12:00:00 AM EDT eCW1 ([facility]) [facility] [address] [facility] [place] [address] 06/28/2019 12:00:00 AM EDT eCW1 ([facility]) [facility] [address] [facility] [place] [address] 06/27/2019 12:00:00 AM EDT eCW1 ([facility]) [facility] [address] [facility] [place] [address] 05/18/2019 12:00:00 AM EDT eCW1 ([facility]) Outpatient Attender: Karan Boo MD Main office - [facility] 04/21/2019 09:30:00 AM EST MEDENT ([facility]ETRICE Dominguez) [facility] [address] [place] [address] 03/30/2019 12:00:00 AM EST eCW1 ([facility]) [facility] [address] [place] [address] 03/16/2019 12:00:00 AM EST eCW1 ([facility]) [facility] [address] [place] [address] 03/15/2019 12:00:00 AM EST eCW1 ([facility]) Outpatient Referrer: STELLA GREEN MD 03/11/2019 01:23:0 0 PM EST [facility] [address] [place] [address] 03/02/2019 12:00:00 AM EST eCW1 ([facility]) Immunizations Vaccine Date Status Description Data Source(s) influenza, recombinant, quadrIvalent,injectable, prese rvative free 12/13/2019 11:54:00 AM EDT completed eCW1 ([facility]) influenza, recombinant, quadrIvalent,injectable, prese rvative free 12/13/2019 11:54:00 AM EDT completed eCW1 ([facility]) influenza, recombinant, quadrIvalent,injectable, prese rvative free 12/13/2019 11:54:00 AM EDT completed eCW1 ([facility]) influenza, recombinant, quadrIvalent,injectable, prese rvative free 12/13/2019 11:54:00 AM EDT completed eCW1 ([facility]) influenza, recombinant, quadrIvalent,injectable, prese rvative free 12/13/2019 11:54:00 AM EDT completed eCW1 ([facility]) Medications Medication Brand Name Start Date Product Form Dose Route Admi nistrative Instructions Pharmacy Instructions Status Indications Reaction Description Data Source(s) Famotidine 40 MG Oral Tablet Famotidine 40 MG 12/13/2019 12:00:00 A M EDT 1.0 {tablet_at_bedtime} active Famotidine 4 0 MG eCW1 ([facility]) Vitamin D3 25 MCG Vitamin D3 25 MCG 12/13/2019 12:00:00 AM EDT 1.0 {tablet} active Vitamin D3 25 MCG eCW1 ([facility]) Vitamin D3 25 MCG Vitamin D3 25 MCG 12/13/2019 12:00:00 AM EDT 1.0 {tablet} active Vitamin D3 25 MCG eCW1 ([facility]) Vitamin D3 25 MCG Vitamin D3 25 MCG 12/13/2019 12:00:00 AM EDT 1.0 {tablet} active Vitamin D3 25 MCG eCW1 ([facility]) Vitamin D3 25 MCG Vitamin D3 25 MCG 12/13/2019 12:00:00 AM EDT 1.0 {tablet} active Vitamin D3 25 MCG eCW1 ([facility]) Famotidine 40 MG Oral Tablet Famotidine 40 MG 12/13/2019 12:00:00 A M EDT 1.0 {tablet_at_bedtime} active Famotidine 4 0 MG eCW1 ([facility]) Famotidine 40 MG Oral Tablet Famotidine 40 MG 12/13/2019 12:00:00 A M EDT 1.0 {tablet_at_bedtime} active Famotidine 4 0 MG eCW1 ([facility]) Famotidine 40 MG Oral Tablet Famotidine 40 MG 12/13/2019 12:00:00 A M EDT 1.0 {tablet_at_bedtime} active Famotidine 4 0 MG eCW1 ([facility]) Humira 40 MG/0.4ML Humira 40 MG/0.4ML 12/05/2019 12:00:00 AM EDT 0.4 {ml} suspended Humira 40 MG/0.4ML eCW1 ([facility]) Humira 40 MG/0.4ML Humira 40 MG/0.4ML 12/05/2019 12:00:00 AM EDT 0.4 {ml} active Humira 40 MG/0.4ML eCW1 ([facility]) Humira 40 MG/0.4ML Humira 40 MG/0.4ML 12/05/2019 12:00:00 AM EDT 0.4 {ml} active Humira 40 MG/0.4ML eCW1 ([facility]) Humira 40 MG/0.4ML Humira 40 MG/0.4ML 12/05/2019 12:00:00 AM EDT 0.4 {ml} active Humira 40 MG/0.4ML eCW1 ([facility]) Humira 40 MG/0.4ML Humira 40 MG/0.4ML 12/05/2019 12:00:00 AM EDT 0.4 {ml} active Humira 40 MG/0.4ML eCW1 ([facility]) Humira 40 MG/0.4ML Humira 40 MG/0.4ML 12/05/2019 12:00:00 AM EDT 0.4 {ml} active Humira 40 MG/0.4ML eCW1 ([facility]) Humira 40 MG/0.4ML Humira 40 MG/0.4ML 12/05/2019 12:00:00 AM EDT 0.4 {ml} active Humira 40 MG/0.4ML eCW1 ([facility]) Humira 40 MG/0.4ML Humira 40 MG/0.4ML 12/05/2019 12:00:00 AM EDT 0.4 {ml} active Humira 40 MG/0.4ML eCW1 ([facility]) Humira 40 MG/0.4ML Humira 40 MG/0.4ML 12/05/2019 12:00:00 AM EDT 0.4 {ml} active Humira 40 MG/0.4ML eCW1 ([facility]) Humira 40 MG/0.4ML Humira 40 MG/0.4ML 12/05/2019 12:00:00 AM EDT 0.4 {ml} active Humira 40 MG/0.4ML eCW1 ([facility]) Humira 40 MG/0.4ML Humira 40 MG/0.4ML 12/05/2019 12:00:00 AM EDT 0.4 {ml} suspended Humira 40 MG/0.4ML eCW1 ([facility]) Humira 40 MG/0.4ML Humira 40 MG/0.4ML 12/05/2019 12:00:00 AM EDT 0.4 {ml} active Humira 40 MG/0.4ML eCW1 ([facility]) Isotretinoin 20 MG Oral Capsule Isotretinoin 20 MG 03/04/2019 12:00 :00 AM EST active as directed eCW1 ([facility]) Isotretinoin 20 MG Oral Capsule Isotretinoin 20 MG 03/04/2019 12:00 :00 AM EST suspended as directed eCW1 ([facility]) Insurance Providers Payer name Policy type / Coverage type Policy ID Covered libertarian ID Covered libertarian's relationship to shirley Policy Shirley Plan Information AETNA MEDICARE [id number] SP MEBSZ DQW AETNA MEDICARE [id number] SP MEBSZ DQW AETNA MEDICARE O [id number] S MEBSZ DQW WELLCARE [id number] SP [id number] WELLCARE [id number] SP [id number] MEDICAID [id number] SP [id number] MEDICARE [id number] SP [id number] AETNA HEA MEBSZDQW S [id number] ANSI-Medicare Part B [id number] ANSI-Medicaid [id number] ANSI-Health Maintenance Organization ( O) [id number] ANSI-Medicaid [id number] ANSI-Medicare Part B [id number] ANSI-Medicaid [id number] ANSI-Medicaid [id number] ANSI-Health Maintenance Organization ( O) [id number] ANSI-Medicare Part B [id number] ANSI-Medicaid [id number] ANSI-Health Maintenance Organization ( O) [id number] ANSI-Medicaid [id number] ANSI-Medicaid [id number] ANSI-Medicare Part B [id number] ANSI-Medicaid [id number] ANSI-Medicaid [id number] ANSI-Medicaid [id number] ANSI-Medicare Part B [id number] ANSI-Medicare Part B [id number] ANSI-Medicaid [id number] ANSI-Medicaid [id number] ANSI-Medicaid [id number] ANSI-Medicaid [id number] ANSI-Medicare Part B [id number] Medicaid [place] [id number] Self [id number] [place] [id number] Self [id number] [facility]() Workers Compensation [id number] Self [id number] [place] [id number] Self [id number] [place] [id number] Self [id number] [place] [id number] Self [id number] [place] [id number] Self [id number] [place] [id number] Self [id number] [place] Primary [id number] Self [id number] MEDICARE C [id number] S [id number] MEDICAID M [id number] S [id number] MEDICARE C [id number] S [id number] ANSI-Medicaid [id number] ANSI-Medicaid [id number] ANSI-Medicare Part B [id number] MEDICARE [id number] SP [id number] A [place] Part [place] [id number] Self [id number] [place] Primary [id number] Self [id number] UNAVAILABLE UNAVAILA BLE MEDICAID HEA [id number] S [id number] MEDICARE MCA [id number] S [id number] A MEDICARE MCA [id number] S [id number] A MEDICARE C [id number] S [id number] A MEDICAID [id number] SP [id number] MEDICARE [id number] SP [id number] [place] [id number] Self [id number] [place] Medicare Primary [id number] Self [id number] [place] Part B [id number] Self [id number] [place]/N[place] Medicare Primary [id number] Self [id number] [place] [id number] Self [id number] [place]/N[place] Primary [id number] Self [id number] MEDICAID [id number] SP [id number] MEDICAID [id number] SP [id number] [place] [id number] Self [id number] [place] Primary [id number] Self [id number] [place] Self [place] Self MEDICARE A [id number] Self [id number] A [employer] [place] PLAN [id number] SP [id number] [facility] S [id number] S [id number] Problems, Conditions, and Diagnoses Code Display Name Description Problem Type Effective Dates Data Source(s) Z85.828 [id number] History of nonmelanoma skin cancer Proble m 03/02/2019 12:00:00 AM EST eCW1 ([facility]) Surgeries/Procedures Procedure Description Date Indications Data Source(s) Immunization: Flublok Quadrivalent (18 years & older) 0.5mL IM (Influenza) 12/13/2019 12:00:00 AM EDT eCW1 ([facility]) Magnetic Resonance Angiogtaphy Head W/O Contrast Material(S) 09/29/2019 12:00:00 AM EDT MEDENT ([facility]) Magnetic Resonance Angiogtaphy Head W/O Contrast Material(S) 09/29/2019 12:00:00 AM EDT MEDENT ([facility]) Magnetic Resonance Angiography Neck W/O Contrast Materials 09/29/2019 12:00:00 AM EDT MEDENT ([facility]) Magnetic Resonance Angiography Neck W/O Contrast Materials 09/29/2019 12:00:00 AM EDT MEDENT ([facility]) MRI BRAIN BRAIN STEM W/O CONTRAST MATERIAL 09/29/2019 12:00:00 AM EDT MEDENT ([facility]) MRI BRAIN BRAIN STEM W/O CONTRAST MATERIAL 09/29/2019 12:00:00 AM EDT MEDENT ([facility]) Office Visit, Est Pt., Level 3 PC 06/28/2019 12:00:00 AM EDT eCW1 ([facility]) Office Visit, Est Pt., Level 2 FC 06/28/2019 12:00:00 AM EDT eCW1 ([facility]) THER/PROPH/DIAG INJ, SC/IM 03/02/2019 12:00:00 AM EST eCW1 ([facility]) Injection, triamcinolone acetonide, not otherwise specified , 10 mg 03/02/2019 12:00:00 AM EST eCW1 ([facility]) Results ID Date Data Source VITAMIN D 25-HYDROXY 12/13/2019 05:54:24 AM EDT eCW1 ([facility]) Name Value Range Interpretation Code Description Data Tanya rce(s) Supporting Document(s) 28.3 TOTAL 25(OH) VITAMIN D eCW1 ([facility]) ID Date Data Source LIPID PANEL (CARDIAC RISK) 12/13/2019 05:54:24 AM EDT eCW1 ( [facility]) Name Value Range Interpretation Code Description Data Tanya rce(s) Supporting Document(s) Cholesterol in HDL [Moles/volume] in Serum or Plasma 44 HDL CHOLESTEROL eCW1 ([facility]) Cholesterol [Moles/volume] in Serum or Plasma 149 CHOLESTEROL LEVEL eCW1 ([facility]) Triglyceride [Mass/volume] in Serum or Plasma by calculation 99 TRIGLYCERIDES LEVEL eCW1 ([facility]) Cholesterol in LDL [Mass/volume] in Serum or Plasma by calculation 85 LDL CHOLESTEROL eCW1 ([facility]) 105 NON-HDL-C eCW1 ([facility]) 3.386 CHOLESTEROL RISK RATIO eCW1 ([facility]) ID Date Data Source Comprehensive Metabolic Profile (CMP) 12/13/2019 05:54:24 AM EDT eCW1 ([facility]) Name Value Range Interpretation Code Description Data Tanya rce(s) Supporting Document(s) 88 GLUCOSE, FASTING eCW1 ([facility]) 7 BLOOD UREA NITROGEN eCW1 ([facility]) 0.84 CREATININE FOR GFR eCW1 ([facility]) 3.9 POTASSIUM SERUM eCW1 ([facility]) 140 SODIUM LEVEL eCW1 ([facility]) > 60.0 GLOMERULAR FILTRATION RATE eCW 1 ([facility]) 108 CHLORIDE LEVEL eCW1 ([facility]) 28 CARBON DIOXIDE LEVEL eCW1 ([facility]) 26 AST/SGOT eCW1 ([facility]) 9.0 CALCIUM LEVEL eCW1 ([facility]) 7.2 TOTAL PROTEIN eCW1 ([facility]) 0.4 BILIRUBIN,TOTAL eCW1 ([facility]) 27 ALT/SGPT eCW1 ([facility]) 103 ALKALINE PHOSPHATASE eCW1 ([facility]) 0.9 ALBUMIN/GLOBULIN RATIO eCW1 ([facility]) 3.5 ALBUMIN eCW1 ([facility]) ID Date Data Source VITB12 & FOL 06/28/2019 12:00:00 AM EDT eCW1 ([facility]) Name Value Range Interpretation Code Description Data Tanya rce(s) Supporting Document(s) 868 VITAMIN B12 LEVEL eCW1 ([facility]) 10.8 FOLATE eCW1 ([facility]) ID Date Data Source MAGNESIUM LEVEL 06/28/2019 12:00:00 AM EDT eCW1 ([facility]) Name Value Range Interpretation Code Description Data Tanya rce(s) Supporting Document(s) 1.9 1.8-2.4 MAGNESIUM LEVEL eCW1 ([facility]) ID Date Data Source LIVER PROFILE 03/03/2019 12:00:00 AM EST eCW1 ([facility]) Name Value Range Interpretation Code Description Data Tanya rce(s) Supporting Document(s) 21 12-78 ALT/SGPT eCW1 ([facility]) 12 7-37 AST/SGOT eCW1 ([facility]) 120 45-117 ALKALINE PHOSPHATASE eCW1 ([facility]) 0.1 0.0-0.2 BILIRUBIN,DIRECT eCW1 ([facility]) 0.3 0.2-1.0 BILIRUBIN,TOTAL eCW1 ([facility]) 1.00 1.00-1.93 ALBUMIN/GLOBULIN RATIO eCW1 ([facility]) 3.7 3.2-5.2 ALBUMIN eCW1 ([facility]) 7.4 6.4-8.2 TOTAL PROTEIN eCW1 ([facility]) ID Date Data Source TRIGLYCERIDES LEVEL 03/03/2019 12:00:00 AM EST eCW1 ([facility]) Name Value Range Interpretation Code Description Data Tanya rce(s) Supporting Document(s) 89 <150 TRIGLYCERIDES LEVEL eCW1 ([facility]) ID Date Data Source CBC with Differential 03/03/2019 12:00:00 AM EST eCW1 ([facility]) Name Value Range Interpretation Code Description Data Tanya rce(s) Supporting Document(s) 9.5 4.0-10.0 WHITE BLOOD COUNT eCW1 ([facility]) 14.6 12.0-15.5 HEMOGLOBIN eCW1 ([facility]) 5.23 4.00-5.40 RED BLOOD COUNT eCW1 ([facility]) 45.3 36.0-47.0 HEMATOCRIT eCW1 ([facility]) 27.9 27.0-33.0 MEAN CORPUSCULAR HEMOGLOB IN eCW1 ([facility]) 32.2 32.0-36.5 MEAN CORPUSCULAR HGB CONC eCW1 ([facility]) 86.6 80.0-96.0 MEAN CORPUSCULAR VOLUME e CW1 ([facility]) 13.2 11.5-14.5 RED CELL DISTRIBUTION WID TH eCW1 ([facility]) 221 150-450 PLATELET COUNT, AUTOMATED eCW1 ([facility]) 69.7 36.0-66.0 NEUTROPHILS % eCW1 ([facility]) 21.9 24.0-44.0 LYMPH % eCW1 ([facility]) 5.8 0.0-5.0 MONO % eCW1 ([facility]) 0.7 0.0-1.0 BASO % eCW1 ([facility]) 6.6 1.5-8.5 NEUTROPHILS # eCW1 ([facility]) 1.6 0.0-3.0 EOS % eCW1 ([facility]) 0.6 0.0-0.8 MONO # eCW1 ([facility]) 0.2 0.0-0.5 EOS # eCW1 ([facility]) 0.1 0.0-0.2 BASO # eCW1 ([facility]) 2.1 1.5-5.0 LYMPH # eCW1 ([facility]) Procedure Social History Code Duration Value Status Description Data Source(s ) Smoking 01/10/2020 12:00:00 AM EST Former Smoker completed Former Smoker eCW1 ([facility]) Smoking 12/13/2019 12:00:00 AM EDT Former Smoker completed Former Smoker eCW1 ([facility]) Smoking 12/13/2019 12:00:00 AM EDT Former Smoker completed Former Smoker eCW1 ([facility]) Smoking 12/13/2019 12:00:00 AM EDT Former Smoker completed Former Smoker eCW1 ([facility]) Smoking 12/13/2019 12:00:00 AM EDT Former Smoker completed Former Smoker eCW1 ([facility]) Smoking 11/29/2019 12:00:00 AM EDT Former Smoker completed Former Smoker eCW1 ([facility]) Vital Signs ID Date Data Source UNK Name Value Range Interpretation Code Description Data Source(s) Diastolic blood pressure 80 mm[Hg] 80 mm[Hg] eCW1 ([facility]) Systolic blood pressure 120 mm[Hg] 120 mm[Hg] e CW1 ([facility]) Body temperature 98 [degF] 98 [degF] eCW1 ([facility]) Respiratory rate 18 /min 18 /min eCW1 ([facility]) Heart rate 82 /min 82 /min eCW1 ([facility]) Body mass index (BMI) [Ratio] 28.52 kg/m2 28.52 kg/m2 eCW1 ([facility]) Body height 63 [in_i] 63 [in_i] eCW1 ([facility]) Body weight 161 [lb_av] 161 [lb_av] eCW1 ([facility]) Diastolic blood pressure 80 mm[Hg] 80 mm[Hg] eCW1 ([facility]) Systolic blood pressure 130 mm[Hg] 130 mm[Hg] e CW1 ([facility]) Body temperature 97.5 [degF] 97.5 [degF] eCW1 ( [facility]) Respiratory rate 20 /min 20 /min eCW1 ([facility]) Heart rate 82 /min 82 /min eCW1 ([facility]) Body mass index (BMI) [Ratio] 28.52 kg/m2 28.52 kg/m2 eCW1 ([facility]) Body height 63 [in_i] 63 [in_i] eCW1 ([facility]) Body weight 161 [lb_av] 161 [lb_av] eCW1 ([facility]) Diastolic blood pressure 80 mm[Hg] 80 mm[Hg] eCW1 ([facility]) Systolic blood pressure 132 mm[Hg] 132 mm[Hg] e CW1 ([facility]) Body mass index (BMI) [Ratio] 28.48 kg/m2 28.48 kg/m2 eCW1 ([facility]) Body height 63 [in_i] 63 [in_i] eCW1 ([facility]) Body weight 160.8 [lb_av] 160.8 [lb_av] eCW1 ([facility]) Respiratory rate 12 /min 12 /min MEDENT ( [facility], ) Body mass index (BMI) [Ratio] 26.6 kg/m2 26.6 k g/m2 MEDENT ([facility], ) Body weight 155.00 [lb_av] 155.00 [lb_av] MEDEN T ([facility], ) Body height 64 [in_i] 64 [in_i] MEDENT ([facility], ) 5'4" Diastolic blood pressure 70 mm[Hg] 70 mm[Hg] eCW1 ([facility]) Systolic blood pressure 130 mm[Hg] 130 mm[Hg] e CW1 ([facility]) Body temperature 97.3 [degF] 97.3 [degF] eCW1 ( [facility]) Respiratory rate 20 /min 20 /min eCW1 ([facility]) Heart rate 84 /min 84 /min eCW1 ([facility]) Body mass index (BMI) [Ratio] 28.34 kg/m2 28.34 kg/m2 eCW1 ([facility]) Body height 63 [in_us] 63 [in_us] eCW1 ([facility]) Body weight Measured 160 [lb_av] 160 [lb_av] eC W1 ([facility]) Body mass index (BMI) [Ratio] 26.6 kg/m2 26.6 k g/m2 MEDENT ([facility], ) Body weight 155.00 [lb_av] 155.00 [lb_av] MEDEN T ([facility], ) Body height 64 [in_i] 64 [in_i] MEDENT ([facility], ) 5'4" Respiratory rate 12 /min 12 /min MEDENT ( [facility], ) Heart rate 72 /min 72 /min MEDENT ([facility], ) Diastolic blood pressure 58 mm[Hg] 58 mm[Hg] MEDENT ([facility], ) Systolic blood pressure 152 mm[Hg] 152 mm[Hg] M EDENT ([facility], ) Diastolic blood pressure 82 mm[Hg] 82 mm[Hg] eCW1 ([facility]) Systolic blood pressure 132 mm[Hg] 132 mm[Hg] e CW1 ([facility]) Body temperature 97.6 [degF] 97.6 [degF] eCW1 ( [facility]) Respiratory rate 18 /min 18 /min eCW1 ([facility]) Heart rate 58 /min 58 /min eCW1 ([facility]) Body mass index (BMI) [Ratio] 27.63 kg/m2 27.63 kg/m2 W1 ([facility]) Body height 63 [in_us] 63 [in_us] eCW1 ([facility]) Body weight Measured 156 [lb_av] 156 [lb_av] eC W1 ([facility]) Diastolic blood pressure 78 mm[Hg] 78 mm[Hg] eCW1 ([facility]) Systolic blood pressure 132 mm[Hg] 132 mm[Hg] e CW1 ([facility]) Body temperature 98.1 [degF] 98.1 [degF] eCW1 ( [facility]) Respiratory rate 18 /min 18 /min eCW1 ([facility]) Heart rate 64 /min 64 /min eCW1 ([facility]) Body mass index (BMI) [Ratio] 27.56 kg/m2 27.56 kg/m2 eCW1 ([facility]) Body height 63 [in_us] 63 [in_us] eCW1 ([facility]) Body weight Measured 155.6 [lb_av] 155.6 [lb_av ] eCW1 ([facility]) Patient Treatment Plan of Care Planned Activity Planned Date Details Description Data Source (s) Vitamin D3 25 MCG 12/13/2019 12:00:00 AM EDT eCW1 ([facility]) Famotidine 40 MG Oral Tablet 12/13/2019 12:00:00 AM EDT eCW1 ([facility]) Vitamin D3 25 MCG 12/13/2019 12:00:00 AM EDT eCW1 ([facility]) Famotidine 40 MG Oral Tablet 12/13/2019 12:00:00 AM EDT eCW1 ([facility]) Vitamin D3 25 MCG 12/13/2019 12:00:00 AM EDT eCW1 ([facility]) Famotidine 40 MG Oral Tablet 12/13/2019 12:00:00 AM EDT eCW1 ([facility]) Vitamin D3 25 MCG 12/13/2019 12:00:00 AM EDT eCW1 ([facility]) Famotidine 40 MG Oral Tablet 12/13/2019 12:00:00 AM EDT eCW1 ([facility]) Humira 40 MG/0.4ML 12/05/2019 12:00:00 AM EDT eCW1 ([facility]) Humira 40 MG/0.4ML 12/05/2019 12:00:00 AM EDT eCW1 ([facility]) Isotretinoin 20 MG Oral Capsule 03/04/2019 12:00:00 AM EST eCW1 ([facility])
[2020-03-20] MEDS ORDERED: PANTOPRAZOLE 40MG VIAL (C9113 PER 1) IV ONE (15:30)
[2020-03-20] MEDS ORDERED: NS 1,000 ML IV ONE ×2 (15:30→18:45)
[2020-03-20] MEDS ORDERED: ONDANSETRON 4MG/2ML VIAL IV ONE ×2 (15:30→17:15)
--- OUTSIDE RECORDS SUMMARY | 2020-03-20 15:33 | CCD ---
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 Care Order Entry Administrator Name Role Phone STELLA GREEN MD Unavailable [...] is protected by Article 27-F of the [facility] Public Health law. If you continue you may have access to information: Regarding HIV / AIDS; Provided by facilities licensed or operated by the [facility] Office of Mental Health; or Provided by the [facility] Office for People With Developmental Disabilities. If such information is present, then the following [facility] mandated warning applies: This information has been [...] law may result in a fine or [place] health care facility sentence or both. A general authorization for the release of medical or other information is NOT sufficient authorization for further disc losure. Allergies and Adverse Reactions Type Description Substance Reaction Status Data Source(s ) Drug allergy Cymbalta duloxetine intolerant Active eCW1 ([facility]) Novacaine Novacaine Novacaine Swelling Active eCW1 ([facility]) Novacaine Novacaine Novacaine Swelling Active eCW1 ([facility]) Novacaine Novacaine Novacaine Swelling Active eCW1 ([facility]) Family History Family Member Name Family Member Gender Family Member Status Date o f Status Description Data Source(s) Unknown Unknown Problem MEDENT ([facility]) Unknown Female Problem MEDENT ([facility]) Encounters Encounter Providers Location Date Indications Data Source(s ) [place] [address] [facility] [place] [address] 01/10/2020 12:00:00 AM EST eCW1 ([facility]) Unknown [address] [facility] [place] [address] 12/15/2019 12:00:00 AM EDT eCW1 ([facility]) Outpatient [address] [facility] [place] [address] 12/13/2019 12:00:00 AM EDT eCW1 ([facility]) [place] [address] [facility] [place] [address] 12/13/2019 12:00:00 AM EDT eCW1 ([facility]) [place] [address] [facility] [place] [address] 12/13/2019 12:00:00 AM EDT eCW1 ([facility]) [place] [address] [facility] [place] [address] 11/29/2019 12:00:00 AM EDT eCW1 ([facility]) [facility] [address] [facility] [place] [address] 08/29/2019 12:00:00 AM EDT eCW1 ([facility]) [facility] [address] [place] [address] 07/05/2019 12:00:00 AM EDT eCW1 ([facility]) [facility] [address] [facility] [place] [address] 06/29/2019 12:00:00 AM EDT eCW1 ([facility]) [facility] [address] [facility] [place] [address] 06/28/2019 12:00:00 AM EDT eCW1 ([facility]) [facility] [address] [facility] [place] [address] 06/27/2019 12:00:00 AM EDT eCW1 ([facility]) [facility] [address] [facility] [place] [address] 05/18/2019 12:00:00 AM EDT eCW1 ([facility]) Outpatient Attender: Karan Boo MD Main office - [facility] 04/21/2019 09:30:00 AM EST MEDENT ([facility] DEMETRICE Dominguez) [facility] Dermatology [address] [place] [address] 03/30/2019 12:00:00 AM EST eCW1 ([facility]) [facility] [address] [place] [address] 03/16/2019 12:00:00 AM EST eCW1 ([facility]) [facility]erm[facility] [address] [place] [address] 03/15/2019 12:00:00 AM EST eCW1 ([facility]) Outpatient Referrer: STELLA GREEN MD 03/11/2019 01:23:0 0 PM EST [facility] [address] [place] [address] 03/02/2019 12:00:00 AM EST eCW1 ([facility]) Immunizations Vaccine Date Status Description Data Source(s) influenza, recombinant, quadrIvalent,injectable, prese rvative free 12/13/2019 11:54:00 AM EDT completed eCW1 ([facility]) influenza, recombinant, quadrIvalent,injectable, prese rvative free 12/13/2019 11:54:00 AM EDT completed eCW1 ([facility] of [facility]) influenza, recombinant, quadrIvalent,injectable, prese rvative free 12/13/2019 11:54:00 AM EDT completed eCW1 ([facility]) influenza, recombinant, quadrIvalent,injectable, prese rvative free 12/13/2019 11:54:00 AM EDT completed eCW1 ([facility]) influenza, recombinant, quadrIvalent,injectable, prese rvative free 12/13/2019 11:54:00 AM EDT completed eCW1 ([facility] of [facility]) Medications Medication Brand Name Start Date Product Form Dose Route Admi nistrative Instructions Pharmacy Instructions Status Indications Reaction Description Data Source(s) Famotidine 40 MG Oral Tablet Famotidine 40 MG 12/13/2019 12:00:00 A M EDT 1.0 {tablet_at_bedtime} active Famotidine 4 0 MG eCW1 ([facility]) Vitamin D3 25 MCG Vitamin D3 25 MCG 12/13/2019 12:00:00 AM EDT 1.0 {tablet} active Vitamin D3 25 MCG eCW1 ([facility]) Vitamin D3 25 MCG Vitamin D3 25 MCG 12/13/2019 12:00:00 AM EDT 1.0 {tablet} active Vitamin D3 25 MCG eCW1 ([facility]) Vitamin D3 25 MCG Vitamin D3 25 MCG 12/13/2019 12:00:00 AM EDT 1.0 {tablet} active Vitamin D3 25 MCG eCW1 ([facility]) Vitamin D3 25 MCG Vitamin D3 25 MCG 12/13/2019 12:00:00 AM EDT 1.0 {tablet} active Vitamin D3 25 MCG eCW1 ([facility]) Famotidine 40 MG Oral Tablet Famotidine 40 MG 12/13/2019 12:00:00 A M EDT 1.0 {tablet_at_bedtime} active Famotidine 4 0 MG eCW1 ([facility]) Famotidine 40 MG Oral Tablet Famotidine 40 MG 12/13/2019 12:00:00 A M EDT 1.0 {tablet_at_bedtime} active Famotidine 4 0 MG eCW1 ([facility]) Famotidine 40 MG Oral Tablet Famotidine 40 MG 12/13/2019 12:00:00 A M EDT 1.0 {tablet_at_bedtime} active Famotidine 4 0 MG eCW1 ([facility]) Humira 40 MG/0.4ML Humira 40 MG/0.4ML 12/05/2019 12:00:00 AM EDT 0.4 {ml} suspended Humira 40 MG/0.4ML eCW1 ([facility]) Humira 40 MG/0.4ML Humira 40 MG/0.4ML 12/05/2019 12:00:00 AM EDT 0.4 {ml} active Humira 40 MG/0.4ML eCW1 ([facility]) Humira 40 MG/0.4ML Humira 40 MG/0.4ML 12/05/2019 12:00:00 AM EDT 0.4 {ml} active Humira 40 MG/0.4ML eCW1 ([facility]) Humira 40 MG/0.4ML Humira 40 MG/0.4ML 12/05/2019 12:00:00 AM EDT 0.4 {ml} active Humira 40 MG/0.4ML eCW1 ([facility]) Humira 40 MG/0.4ML Humira 40 MG/0.4ML 12/05/2019 12:00:00 AM EDT 0.4 {ml} active Humira 40 MG/0.4ML eCW1 ([facility]) Humira 40 MG/0.4ML Humira 40 MG/0.4ML 12/05/2019 12:00:00 AM EDT 0.4 {ml} active Humira 40 MG/0.4ML eCW1 ([facility]) Humira 40 MG/0.4ML Humira 40 MG/0.4ML 12/05/2019 12:00:00 AM EDT 0.4 {ml} active Humira 40 MG/0.4ML eCW1 ([facility]) Humira 40 MG/0.4ML Humira 40 MG/0.4ML 12/05/2019 12:00:00 AM EDT 0.4 {ml} active Humira 40 MG/0.4ML eCW1 ([facility]) Humira 40 MG/0.4ML Humira 40 MG/0.4ML 12/05/2019 12:00:00 AM EDT 0.4 {ml} active Humira 40 MG/0.4ML eCW1 ([facility]) Humira 40 MG/0.4ML Humira 40 MG/0.4ML 12/05/2019 12:00:00 AM EDT 0.4 {ml} active Humira 40 MG/0.4ML eCW1 ([facility]) Humira 40 MG/0.4ML Humira 40 MG/0.4ML 12/05/2019 12:00:00 AM EDT 0.4 {ml} suspended Humira 40 MG/0.4ML eCW1 ([facility]) Humira 40 MG/0.4ML Humira 40 MG/0.4ML 12/05/2019 12:00:00 AM EDT 0.4 {ml} active Humira 40 MG/0.4ML eCW1 ([facility]) Isotretinoin 20 MG Oral Capsule Isotretinoin 20 MG 03/04/2019 12:00 :00 AM EST active as directed eCW1 ([facility]) Isotretinoin 20 MG Oral Capsule Isotretinoin 20 MG 03/04/2019 12:00 :00 AM EST suspended as directed eCW1 ([facility]) Insurance Providers Payer name Policy type / Coverage type Policy ID Covered green party ID Covered green party's relationship to shirley Policy Shirley Plan Information AETNA MEDICARE [id number] SP MEBSZ DQW AETNA MEDICARE [id number] SP MEBSZ DQW AETNA MEDICARE O [id number] S MEBSZ DQW WELLCARE [id number] SP [id number] WELLCARE [id number] SP [id number] MEDICAID [id number] SP [id number] MEDICARE [id number] SP [id number] AETNA HEA MEBSZDQW S [id number] ANSI-Medicare Part B [id number] ANSI-Medicaid [id number] ANSI-Health Maintenance Organization ( O) [id number] ANSI-Medicaid [id number] ANSI-Medicare Part B [id number] ANSI-Medicaid [id number] ANSI-Medicaid [id number] ANSI-Health Maintenance Organization ( O) [id number] ANSI-Medicare Part B [id number] ANSI-Medicaid [id number] ANSI-Health Maintenance Organization ( O) [id number] ANSI-Medicaid [id number] ANSI-Medicaid [id number] ANSI-Medicare Part B [id number] ANSI-Medicaid [id number] ANSI-Medicaid [id number] ANSI-Medicaid [id number] ANSI-Medicare Part B [id number] ANSI-Medicare Part B [id number] ANSI-Medicaid [id number] ANSI-Medicaid [id number] ANSI-Medicaid [id number] ANSI-Medicaid [id number] ANSI-Medicare Part B [id number] Medicaid [place] Med[place] Part [place] [id number] Self [id number] [place] Primary [id number] Self [id number] [facility]() Workers Compensation [id number] Self [id number] [place] [id number] Self [id number] [place] [id number] Self [id number] [place] [id number] Self [id number] [place] [id number] Self [id number] [place] [id number] Self [id number] [place] Primary [id number] Self [id number] MEDICARE C [id number] S [id number] MEDICAID M [id number] S [id number] MEDICARE C [id number] S [id number] ANSI-Medicaid [id number] ANSI-Medicaid [id number] ANSI-Medicare Part B [id number] MEDICARE [id number] SP [id number] A [place] Part [place] [id number] Self [id number] [place] Primary [id number] Self [id number] UNAVAILABLE UNAVAILA BLE MEDICAID HEA [id number] S [id number] MEDICARE MCA [id number] S [id number] A MEDICARE MCA [id number] S [id number] A MEDICARE C [id number] S [id number] A MEDICAID [id number] SP [id number] MEDICARE [id number] SP [id number] [place] [id number] Self [id number] [place] Medicare Primary [id number] Self [id number] [place] Part [place] [id number] Self [id number] [place] Medicare Primary [id number] Self [id number] [place] [id number] Self [id number] [place] Medicare Primary [id number] Self [id number] MEDICAID [id number] SP [id number] MEDICAID [id number] SP [id number] [place] Med[place] Part [place] [id number] Self [id number] [place] Medicare Primary [id number] Self [id number] [place] Self [place] Primary Self MEDICARE A [id number] Self [id number] A [employer]UE [employer] [place] PLAN [id number] SP [id number] [facility] S [id number] S [id number] Problems, Conditions, and Diagnoses Code Display Name Description Problem Type Effective Dates Data Source(s) Z85.828 [id number] History of nonmelanoma skin cancer Proble m 03/02/2019 12:00:00 AM EST eCW1 ([facility]) Surgeries/Procedures Procedure Description Date Indications Data Source(s) Immunization: Flublok Quadrivalent (18 years & older) 0.5mL IM (Influenza) 12/13/2019 12:00:00 AM EDT eCW1 ([facility]) Magnetic Resonance Angiogtaphy Head W/O Contrast Material(S) 09/29/2019 12:00:00 AM EDT MEDENT ([facility]) Magnetic Resonance Angiogtaphy Head W/O Contrast Material(S) 09/29/2019 12:00:00 AM EDT MEDENT ([facility]) Magnetic Resonance Angiography Neck W/O Contrast Materials 09/29/2019 12:00:00 AM EDT MEDENT ([facility]) Magnetic Resonance Angiography Neck W/O Contrast Materials 09/29/2019 12:00:00 AM EDT MEDENT ([facility]) MRI BRAIN BRAIN STEM W/O CONTRAST MATERIAL 09/29/2019 12:00:00 AM EDT MEDENT ([facility]) MRI BRAIN BRAIN STEM W/O CONTRAST MATERIAL 09/29/2019 12:00:00 AM EDT MEDENT ([facility]) Office Visit, Est Pt., Level 3 PC 06/28/2019 12:00:00 AM EDT eCW1 ([facility]) Office Visit, Est Pt., Level 2 FC 06/28/2019 12:00:00 AM EDT eCW1 ([facility]) THER/PROPH/DIAG INJ, SC/IM 03/02/2019 12:00:00 AM EST eCW1 ([facility]) Injection, triamcinolone acetonide, not otherwise specified , 10 mg 03/02/2019 12:00:00 AM EST eCW1 ([facility]) Results ID Date Data Source VITAMIN D 25-HYDROXY 12/13/2019 05:54:24 AM EDT eCW1 ([facility]) Name Value Range Interpretation Code Description Data Tanya rce(s) Supporting Document(s) 28.3 TOTAL 25(OH) VITAMIN D eCW1 ([facility]) ID Date Data Source LIPID PANEL (CARDIAC RISK) 12/13/2019 05:54:24 AM EDT eCW1 ( [facility]) Name Value Range Interpretation Code Description Data Tanya rce(s) Supporting Document(s) Cholesterol in HDL [Moles/volume] in Serum or Plasma 44 HDL CHOLESTEROL eCW1 ([facility]) Cholesterol [Moles/volume] in Serum or Plasma 149 CHOLESTEROL LEVEL eCW1 ([facility]) Triglyceride [Mass/volume] in Serum or Plasma by calculation 99 TRIGLYCERIDES LEVEL eCW1 ([facility]) Cholesterol in LDL [Mass/volume] in Serum or Plasma by calculation 85 LDL CHOLESTEROL eCW1 ([facility]) 105 NON-HDL-C eCW1 ([facility]) 3.386 CHOLESTEROL RISK RATIO eCW1 ([facility]) ID Date Data Source Comprehensive Metabolic Profile (CMP) 12/13/2019 05:54:24 AM EDT eCW1 ([facility]) Name Value Range Interpretation Code Description Data Tanya rce(s) Supporting Document(s) 88 GLUCOSE, FASTING eCW1 ([facility]) 7 BLOOD UREA NITROGEN eCW1 ([facility]) 0.84 CREATININE FOR GFR eCW1 ([facility]) 3.9 POTASSIUM SERUM eCW1 ([facility]) 140 SODIUM LEVEL eCW1 ([facility] > 60.0 GLOMERULAR FILTRATION RATE eCW 1 ([facility]) 108 CHLORIDE LEVEL eCW1 ([facility]) 28 CARBON DIOXIDE LEVEL eCW1 ([facility]) 26 AST/SGOT eCW1 ([facility]) 9.0 CALCIUM LEVEL eCW1 ([facility]) 7.2 TOTAL PROTEIN eCW1 ([facility]) 0.4 BILIRUBIN,TOTAL eCW1 ([facility]) 27 ALT/SGPT eCW1 ([facility]) 103 ALKALINE PHOSPHATASE eCW1 ([facility]) 0.9 ALBUMIN/GLOBULIN RATIO eCW1 ([facility]) 3.5 ALBUMIN eCW1 ([facility] of [facility]) ID Date Data Source VITB12 & FOL 06/28/2019 12:00:00 AM EDT eCW1 ([facility]) Name Value Range Interpretation Code Description Data Tanya rce(s) Supporting Document(s) 868 VITAMIN B12 LEVEL eCW1 ([facility]) 10.8 FOLATE eCW1 ([facility]) ID Date Data Source MAGNESIUM LEVEL 06/28/2019 12:00:00 AM EDT eCW1 ([facility]) Name Value Range Interpretation Code Description Data Tanya rce(s) Supporting Document(s) 1.9 1.8-2.4 MAGNESIUM LEVEL eCW1 ([facility]) ID Date Data Source LIVER PROFILE 03/03/2019 12:00:00 AM EST eCW1 ([facility]) Name Value Range Interpretation Code Description Data Tanya rce(s) Supporting Document(s) 21 12-78 ALT/SGPT eCW1 ([facility] of [facility]) 12 7-37 AST/SGOT eCW1 ([facility]) 120 45-117 ALKALINE PHOSPHATASE eCW1 ([facility]) 0.1 0.0-0.2 BILIRUBIN,DIRECT eCW1 ([facility]) 0.3 0.2-1.0 BILIRUBIN,TOTAL eCW1 ([facility]) 1.00 1.00-1.93 ALBUMIN/GLOBULIN RATIO eCW1 ([facility]) 3.7 3.2-5.2 ALBUMIN eCW1 ([facility] of [facility]) 7.4 6.4-8.2 TOTAL PROTEIN eCW1 ([facility]) ID Date Data Source TRIGLYCERIDES LEVEL 03/03/2019 12:00:00 AM EST eCW1 ([facility]) Name Value Range Interpretation Code Description Data Tanya rce(s) Supporting Document(s) 89 <150 TRIGLYCERIDES LEVEL eCW1 ([facility]) ID Date Data Source CBC with Differential 03/03/2019 12:00:00 AM EST eCW1 ([facility]) Name Value Range Interpretation Code Description Data Tanya rce(s) Supporting Document(s) 9.5 4.0-10.0 WHITE BLOOD COUNT eCW1 ([facility]) 14.6 12.0-15.5 HEMOGLOBIN eCW1 ([facility]) 5.23 4.00-5.40 RED BLOOD COUNT eCW1 ([facility]) 45.3 36.0-47.0 HEMATOCRIT eCW1 ([facility]) 27.9 27.0-33.0 MEAN CORPUSCULAR HEMOGLOB IN eCW1 ([facility]) 32.2 32.0-36.5 MEAN CORPUSCULAR HGB CONC eCW1 ([facility]) 86.6 80.0-96.0 MEAN CORPUSCULAR VOLUME e CW1 ([facility]) 13.2 11.5-14.5 RED CELL DISTRIBUTION WID TH eCW1 ([facility]) 221 150-450 PLATELET COUNT, AUTOMATED eCW1 ([facility]) 69.7 36.0-66.0 NEUTROPHILS % eCW1 ([facility]) 21.9 24.0-44.0 LYMPH % eCW1 ([facility]) 5.8 0.0-5.0 MONO % eCW1 ([facility] of [facility]) 0.7 0.0-1.0 BASO % eCW1 ([facility] of [facility]) 6.6 1.5-8.5 NEUTROPHILS # eCW1 ([facility]) 1.6 0.0-3.0 EOS % eCW1 ([facility] of [facility]) 0.6 0.0-0.8 MONO # eCW1 ([facility] of [facility]) 0.2 0.0-0.5 EOS # eCW1 ([facility]) 0.1 0.0-0.2 BASO # eCW1 ([facility]) 2.1 1.5-5.0 LYMPH # eCW1 ([facility] of [facility]) Procedure Social History Code Duration Value Status Description Data Source(s ) Smoking 01/10/2020 12:00:00 AM EST Former Smoker completed Former Smoker eCW1 ([facility]) Smoking 12/13/2019 12:00:00 AM EDT Former Smoker completed Former Smoker eCW1 ([facility]) Smoking 12/13/2019 12:00:00 AM EDT Former Smoker completed Former Smoker eCW1 ([facility]) Smoking 12/13/2019 12:00:00 AM EDT Former Smoker completed Former Smoker eCW1 ([facility]) Smoking 12/13/2019 12:00:00 AM EDT Former Smoker completed Former Smoker eCW1 ([facility]) Smoking 11/29/2019 12:00:00 AM EDT Former Smoker completed Former Smoker eCW1 ([facility]) Vital Signs ID Date Data Source UNK Name Value Range Interpretation Code Description Data Source(s) Diastolic blood pressure 80 mm[Hg] 80 mm[Hg] eCW1 ([facility]) Systolic blood pressure 120 mm[Hg] 120 mm[Hg] e CW1 ([facility]) Body temperature 98 [degF] 98 [degF] eCW1 ([facility]) Respiratory rate 18 /min 18 /min eCW1 ([facility]) Heart rate 82 /min 82 /min eCW1 ([facility]) Body mass index (BMI) [Ratio] 28.52 kg/m2 28.52 kg/m2 eCW1 ([facility]) Body height 63 [in_i] 63 [in_i] eCW1 ([facility]) Body weight 161 [lb_av] 161 [lb_av] eCW1 ([facility]) Diastolic blood pressure 80 mm[Hg] 80 mm[Hg] eCW1 ([facility]) Systolic blood pressure 130 mm[Hg] 130 mm[Hg] e CW1 ([facility]) Body temperature 97.5 [degF] 97.5 [degF] eCW1 ( [facility]) Respiratory rate 20 /min 20 /min eCW1 ([facility]) Heart rate 82 /min 82 /min eCW1 ([facility]) Body mass index (BMI) [Ratio] 28.52 kg/m2 28.52 kg/m2 eCW1 ([facility]) Body height 63 [in_i] 63 [in_i] eCW1 ([facility]) Body weight 161 [lb_av] 161 [lb_av] eCW1 (Formerly [facility]) Diastolic blood pressure 80 mm[Hg] 80 mm[Hg] eCW1 ([facility]) Systolic blood pressure 132 mm[Hg] 132 mm[Hg] e CW1 ([facility]) Body mass index (BMI) [Ratio] 28.48 kg/m2 28.48 kg/m2 eCW1 ([facility]) Body height 63 [in_i] 63 [in_i] eCW1 ([facility]) Body weight 160.8 [lb_av] 160.8 [lb_av] eCW1 ([facility]) Respiratory rate 12 /min 12 /min MEDENT ( [facility], ) Body mass index (BMI) [Ratio] 26.6 kg/m2 26.6 k g/m2 MEDENT ([facility], ) Body weight 155.00 [lb_av] 155.00 [lb_av] MEDEN T ([facility], ) Body height 64 [in_i] 64 [in_i] MEDENT ([facility], ) 5'4" Diastolic blood pressure 70 mm[Hg] 70 mm[Hg] eCW1 ([facility]) Systolic blood pressure 130 mm[Hg] 130 mm[Hg] e CW1 ([facility]) Body temperature 97.3 [degF] 97.3 [degF] eCW1 ( [facility]) Respiratory rate 20 /min 20 /min eCW1 ([facility]) Heart rate 84 /min 84 /min eCW1 ([facility]) Body mass index (BMI) [Ratio] 28.34 kg/m2 28.34 kg/m2 eCW1 ([facility]) Body height 63 [in_us] 63 [in_us] eCW1 ([facility]) Body weight Measured 160 [lb_av] 160 [lb_av] eC W1 ([facility]) Body mass index (BMI) [Ratio] 26.6 kg/m2 26.6 k g/m2 MEDENT ([facility], ) Body weight 155.00 [lb_av] 155.00 [lb_av] MEDEN T ([facility], ) Body height 64 [in_i] 64 [in_i] MEDENT ([facility], ) 5'4" Respiratory rate 12 /min 12 /min MEDENT ( [facility], ) Heart rate 72 /min 72 /min MEDENT ([facility], ) Diastolic blood pressure 58 mm[Hg] 58 mm[Hg] MEDENT ([facility], ) Systolic blood pressure 152 mm[Hg] 152 mm[Hg] M EDENT ([facility], ) Diastolic blood pressure 82 mm[Hg] 82 mm[Hg] eCW1 ([facility]) Systolic blood pressure 132 mm[Hg] 132 mm[Hg] e CW1 ([facility]) Body temperature 97.6 [degF] 97.6 [degF] eCW1 ( [facility]) Respiratory rate 18 /min 18 /min eCW1 ([facility]) Heart rate 58 /min 58 /min eCW1 ([facility]) Body mass index (BMI) [Ratio] 27.63 kg/m2 27.63 kg/m2 W1 ([facility]) Body height 63 [in_us] 63 [in_us] eCW1 ([facility]) Body weight Measured 156 [lb_av] 156 [lb_av] eC W1 ([facility]) Diastolic blood pressure 78 mm[Hg] 78 mm[Hg] eCW1 ([facility]) Systolic blood pressure 132 mm[Hg] 132 mm[Hg] e CW1 ([facility]) Body temperature 98.1 [degF] 98.1 [degF] eCW1 ( [facility]) Respiratory rate 18 /min 18 /min eCW1 ([facility]) Heart rate 64 /min 64 /min eCW1 ([facility]) Body mass index (BMI) [Ratio] 27.56 kg/m2 27.56 kg/m2 eCW1 ([facility]) Body height 63 [in_us] 63 [in_us] eCW1 ([facility]) Body weight Measured 155.6 [lb_av] 155.6 [lb_av ] eCW1 ([facility]) Patient Treatment Plan of Care Planned Activity Planned Date Details Description Data Source (s) Vitamin D3 25 MCG 12/13/2019 12:00:00 AM EDT eCW1 ([facility]) Famotidine 40 MG Oral Tablet 12/13/2019 12:00:00 AM EDT eCW1 ([facility]) Vitamin D3 25 MCG 12/13/2019 12:00:00 AM EDT eCW1 ([facility]) Famotidine 40 MG Oral Tablet 12/13/2019 12:00:00 AM EDT eCW1 ([facility]) Vitamin D3 25 MCG 12/13/2019 12:00:00 AM EDT eCW1 ([facility]) Famotidine 40 MG Oral Tablet 12/13/2019 12:00:00 AM EDT eCW1 ([facility]) Vitamin D3 25 MCG 12/13/2019 12:00:00 AM EDT eCW1 ([facility]) Famotidine 40 MG Oral Tablet 12/13/2019 12:00:00 AM EDT eCW1 ([facility]) Humira 40 MG/0.4ML 12/05/2019 12:00:00 AM EDT eCW1 ([facility]) Humira 40 MG/0.4ML 12/05/2019 12:00:00 AM EDT eCW1 ([facility]) Isotretinoin 20 MG Oral Capsule 03/04/2019 12:00:00 AM EST eCW1 ([facility])
[2020-03-20 15:59] LABS: BASO # 0.1 10^3/uL (0.0-0.2); BASO % 0.6 % (0.0-1.0); EOS # 0.1 10^3/uL (0.0-0.5); EOS % 0.8 % (0.0-3.0); HEMATOCRIT 42.4 % (36.0-47.0); LYMPH # 2.9 10^3/uL (1.5-5.0); LYMPH % 21.7 % (24.0-44.0); MEAN CORPUSCULAR HEMOGLOBIN 27.6 pg (27.0-33.0); MEAN CORPUSCULAR VOLUME 83.6 fl (80.0-96.0); MONO # 1.1 10^3/uL (0.0-0.8); NEUTROPHILS # 9.1 10^3/uL (1.5-8.5); NEUTROPHILS % 68.5 % (36.0-66.0); PLATELET COUNT, AUTOMATED 206 10^3/uL (150-450); RED BLOOD COUNT 5.07 10^6/uL (4.00-5.40); WHITE BLOOD COUNT 13.3 10^3/uL (4.0-10.0)
[2020-03-20 16:22] LABS: ALBUMIN 3.4 GM/DL (3.2-5.2); ALT/SGPT 26 U/L (12-78); BILIRUBIN,DIRECT 0.3 MG/DL (0.0-0.2); BILIRUBIN,TOTAL 0.8 MG/DL (0.2-1.0); BLOOD UREA NITROGEN 8 MG/DL (7-18); CALCIUM LEVEL 9.2 MG/DL (8.8-10.2); CARBON DIOXIDE LEVEL 26 MEQ/L (21-32); CHLORIDE LEVEL 105 MEQ/L (98-107); CREATININE FOR GFR 0.81 MG/DL (0.55-1.30); GLOMERULAR FILTRATION RATE > 60.0 (>45); GLUCOSE, FASTING 96 MG/DL (70-100); LIPASE 92 U/L (73-393); POTASSIUM SERUM 3.2 MEQ/L (3.5-5.1); SODIUM LEVEL 141 MEQ/L (136-145); TOTAL PROTEIN 6.9 GM/DL (6.4-8.2)
[2020-03-20 16:24] LABS: CK-MB VALUE MASS < 1.0 NG/ML (<3.6); CPK CREATINE PHOSPHOKINASE 51 U/L (26-192); MB/CK RELATIVE INDEX 1.96 (< OR =4); TROPONIN I < 0.02 NG/ML (< 0.10)
--- NOTE | 2020-03-20 16:36 | ECGEPIP ---
[facility] - ED Test Date: 2020-03-20 Pat Name: EUGENE RODRÍGUEZ Department: Room: - Gender: Female Entry Level Assistant Manager: : 1950 Requested By: GLEN Lyons PA-C Order Number: [id number] Reading MD: Sonny Liu Measurements Intervals [place] Rate: 56 P: -25 AL: 155 QRS: -26 QRSD: 78 T: -24 QT: 415 QTc: 404 Interpretive Statements SINUS BRADYCARDIA INFERIOR MYOCARDIAL INFARCTION, PROBABLY OLD Unable to interpret lead II Nonspecific T wave abnormality Comparison tracing not on file Electronically Signed on 03-20-2020 16:36:08 EST by Sonny Liu
--- NOTE | 2020-03-20 16:47 | REP ---
INDICATION: right abdominal pain/ HX gallstones COMPARISON: None. TECHNIQUE: Real time pineda scale ultrasound examination using curved array transducer. FINDINGS: Liver is hyperechoic and normal in size without focal hepatic lesion identified. Pancreas is incompletely evaluated due to interposed bowel gas. The gallbladder demonstrates sludge and gallstones with wall thickening to 6 mm and sonographic Forman sign. Common bile duct is upper limits of normal at 7 mm. Right kidney is normal in reniform shape without hydronephrosis and measures 8.6 x 5.0 x 4.2 cm. No ascites in the visualized right upper quadrant. IMPRESSION: 1. Right upper quadrant pain and biliary findings raise the possibility of acute cholecystitis. Correlation is required. 2. Hepatosteatosis. <Electronically signed by Jose Alfredo Mercedes > 03/20/20 1106
[2020-03-20] MEDS ORDERED: PIPERACILLIN/TAZOBACTAM SOD 4.5 GM in D5W MINI-BAG PLUS 50 ML IV ONE (17:15)
[2020-03-20] MEDS ORDERED: MORPHINE 2 MG/ML 1ML VIAL (J2270) IV ONE (17:15)
[2020-03-20] MEDS ORDERED: PERCOCET 5MG/325MG TAB PO PRN ×2 (17:30)
[2020-03-20] MEDS ORDERED: POTASSIUM CHLORIDE 10 MEQ SR TABLET PO ONE (17:30)
[2020-03-20] MEDS ORDERED: MORPHINE 4 MG/ML 1ML VIAL/SYRINGE (J2270) IV PRN (17:30)
--- OUTSIDE RECORDS SUMMARY | 2020-03-20 17:31 | CCD ---
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 Care Instrument/Control Technician Name Role Phone STELLA GREEN MD Unavailable [...] is protected by Article 27-F of the [facility] Public Health law. If you continue you may have access to information: Regarding HIV / AIDS; Provided by facilities licensed or operated by the [facility] Office of Mental Health; or Provided by the [facility] Office for People With Developmental Disabilities. If such information is present, then the following [facility] mandated warning applies: This information has been [...] law may result in a fine or assisted sentence or both. A general authorization for the release of medical or other information is NOT sufficient authorization for further disc losure. Allergies and Adverse Reactions Type Description Substance Reaction Status Data Source(s ) Drug allergy Cymbalta duloxetine intolerant Active eCW1 ([facility]) Novacaine Novacaine Novacaine Swelling Active eCW1 ([facility]) Novacaine Novacaine Novacaine Swelling Active eCW1 ([facility]) Novacaine Novacaine Novacaine Swelling Active eCW1 ([facility]) Family History Family Member Name Family Member Gender Family Member Status Date o f Status Description Data Source(s) Unknown Unknown Problem MEDENT ([facility]) Unknown Female Problem MEDENT ([facility]) Encounters Encounter Providers Location Date Indications Data Source(s ) [place] [address] [facility] [place] [address] 01/10/2020 12:00:00 AM EST eCW1 ([facility]) [place] [address] [facility] [place] [address] 12/15/2019 12:00:00 AM EDT eCW1 ([facility]) Outpatient [address] [facility] [place] [address] 12/13/2019 12:00:00 AM EDT eCW1 ([facility]) [place] [address] [facility] [place] [address] 12/13/2019 12:00:00 AM EDT eCW1 ([facility]) [place] [address] [facility] [address] 12/13/2019 12:00:00 AM EDT eCW1 ([facility]) [place] [address] [facility] [address] 11/29/2019 12:00:00 AM EDT eCW1 ([facility]) [facility] [address] [facility] [address] 08/29/2019 12:00:00 AM EDT eCW1 ([facility]) [facility] Dermatology [address] [place] [address] 07/05/2019 12:00:00 AM EDT eCW1 ([facility]) [facility] [address] [facility] [place] [address] 06/29/2019 12:00:00 AM EDT eCW1 ([facility]) [facility] [address] [facility] [place] [address] 06/28/2019 12:00:00 AM EDT eCW1 ([facility]) [facility] [address] [facility] [place] [address] 06/27/2019 12:00:00 AM EDT eCW1 ([facility]) [facility] [address] [facility] [address] 05/18/2019 12:00:00 AM EDT eCW1 ([facility]) Outpatient Attender: Karan Boo MD Main office - [facility] 04/21/2019 09:30:00 AM EST MEDENT ([facility]) [facility] Dermatology [address] [place] [address] 03/30/2019 12:00:00 AM EST eCW1 ([facility]) [facility] Dermatology [address] [place] [address] 03/16/2019 12:00:00 AM EST eCW1 ([facility]) [facility] Dermatology [address] [place] [address] 03/15/2019 12:00:00 AM EST eCW1 ([facility]) Outpatient Referrer: STELLA GREEN MD 03/11/2019 01:23:0 0 PM EST [facility] Dermatology [address] [place] [address] 03/02/2019 12:00:00 AM EST eCW1 ([facility]) Immunizations Vaccine Date Status Description Data Source(s) influenza, recombinant, quadrIvalent,injectable, prese rvative free 12/13/2019 11:54:00 AM EDT completed eCW1 ([facility]) influenza, recombinant, quadrIvalent,injectable, prese rvative free 12/13/2019 11:54:00 AM EDT completed eCW1 ([facility]) influenza, recombinant, quadrIvalent,injectable, prese rvative free 12/13/2019 11:54:00 AM EDT completed eCW1 ([facility]) influenza, recombinant, quadrIvalent,injectable, prese rvative free 12/13/2019 11:54:00 AM EDT completed eCW1 ([facility]) influenza, recombinant, quadrIvalent,injectable, prese rvative free 12/13/2019 11:54:00 AM EDT completed eCW1 ([facility]) Medications Medication Brand Name Start Date Product Form Dose Route Admi nistrative Instructions Pharmacy Instructions Status Indications Reaction Description Data Source(s) Famotidine 40 MG Oral Tablet Famotidine 40 MG 12/13/2019 12:00:00 A M EDT 1.0 {tablet_at_bedtime} active Famotidine 4 0 MG eCW1 ([facility]) Vitamin D3 25 MCG Vitamin D3 25 MCG 12/13/2019 12:00:00 AM EDT 1.0 {tablet} active Vitamin D3 25 MCG eCW1 ([facility]) Vitamin D3 25 MCG Vitamin D3 25 MCG 12/13/2019 12:00:00 AM EDT 1.0 {tablet} active Vitamin D3 25 MCG eCW1 ([facility]) Vitamin D3 25 MCG Vitamin D3 25 MCG 12/13/2019 12:00:00 AM EDT 1.0 {tablet} active Vitamin D3 25 MCG eCW1 ([facility]) Vitamin D3 25 MCG Vitamin D3 25 MCG 12/13/2019 12:00:00 AM EDT 1.0 {tablet} active Vitamin D3 25 MCG eCW1 ([facility]) Famotidine 40 MG Oral Tablet Famotidine 40 MG 12/13/2019 12:00:00 A M EDT 1.0 {tablet_at_bedtime} active Famotidine 4 0 MG eCW1 ([facility]) Famotidine 40 MG Oral Tablet Famotidine 40 MG 12/13/2019 12:00:00 A M EDT 1.0 {tablet_at_bedtime} active Famotidine 4 0 MG eCW1 ([facility]) Famotidine 40 MG Oral Tablet Famotidine 40 MG 12/13/2019 12:00:00 A M EDT 1.0 {tablet_at_bedtime} active Famotidine 4 0 MG eCW1 ([facility]) Humira 40 MG/0.4ML Humira 40 MG/0.4ML [...] :00 AM EST active as directed eCW1 ([facility]) Isotretinoin 20 MG Oral Capsule Isotretinoin 20 MG 03/04/2019 12:00 :00 AM EST suspended as directed eCW1 ([facility]) Insurance Providers Payer name Policy type / Coverage type Policy ID Covered republican ID Covered republican's relationship to shirley Policy Shirley Plan Information WELLCARE [id number] SP [id number] MEDICARE [id number] SP [id number] AETNA MEDICARE [id number] SP MEBSZ DQW AETNA MEDICARE [id number] SP MEBSZ DQW AETNA MEDICARE O MEBSZDQW S MEBSZ DQW WELLCARE [id number] SP [id number] MEDICAID [id number] SP [id number] AETNA HEA MEBSZDQW S [id number] ANSI-Medicare Part B [id number] ANSI-Medicaid [id number] ANSI-Health Maintenance Organization (HM O) [id number] ANSI-Medicaid [id number] ANSI-Medicare Part B [id number] ANSI-Medicaid [id number] ANSI-Medicaid [id number] ANSI-Health Maintenance Organization ( O) [id number] ANSI-Medicare Part B [id number] ANSI-Medicaid [id number] ANSI-Health Maintenance Organization ( O) [id number] ANSI-Medicaid [id number] ANSI-Medicaid [id number] ANSI-Medicare Part B [id number] ANSI-Medicaid [id number] ANSI-Medicaid [id number] ANSI-Medicaid [id number] ANSI-Medicare Part B [id number] ANSI-Medicare Part B [id number] ANSI-Medicaid [id number] ANSI-Medicaid [id number] ANSI-Medicaid [id number] ANSI-Medicaid [id number] ANSI-Medicare Part B [id number] [place] [id number] Self [id number] [place] Primary [id number] Self [id number] [facility]() Workers Compensation [id number] Self [id number] [place] [id number] Self [id number] [place] Primary [id number] Self [id number] [place] [id number] Self [id number] [place] Primary [id number] Self [id number] [place] [id number] Self [id number] [place] Primary [id number] Self [id number] MEDICARE C [id number] S [id number] MEDICAID M [id number] S [id number] MEDICARE C [id number] S [id number] ANSI-Medicaid [id number] ANSI-Medicaid [id number] ANSI-Medicare Part B [id number] MEDICARE [id number] SP [id number] [place] Part [place] [id number] Self [id number] [place] Primary [id number] Self [id number] UNAVAILABLE [place] BLE MEDICAID HEA [id number] S [id number] MEDICARE MCA [id number] S [id number] A MEDICARE MCA [id number] S [id number] A MEDICARE C [id number] S [id number] A MEDICAID [id number] SP [id number] MEDICARE [id number] SP [id number] [place] [id number] Self [id number] [place] Medicare Primary [id number] Self [id number] [place] Part B [id number] Self [id number] [place] Medicare Primary [id number] Self [id number] [place] [id number] Self [id number] [place]/N[place] Primary [id number] Self [id number] MEDICAID [id number] SP [id number] MEDICAID [id number] SP [id number] [place] Med[place] [id number] Self [id number] [place] Medicare Primary [id number] Self [id number] [place] Self [place] Primary Self MEDICARE A [id number] Self [id number] A BLUE [employer] [place] PLAN [id number] SP [id number] [facility] S [id number] S [id number] Problems, Conditions, and Diagnoses Code Display Name Description Problem Type Effective Dates Data Source(s) Z85.828 [id number] History of nonmelanoma skin cancer Proble m 03/02/2019 12:00:00 AM EST eCW1 ([facility]) Surgeries/Procedures Procedure Description Date Indications Data Source(s) Immunization: Flublok Quadrivalent (18 years & older) 0.5mL IM (Influenza) 12/13/2019 12:00:00 AM EDT eCW1 ([facility]) Magnetic Resonance Angiogtaphy Head W/O Contrast Material(S) 09/29/2019 12:00:00 AM EDT MEDENT ([facility]) Magnetic Resonance Angiogtaphy Head W/O Contrast Material(S) 09/29/2019 12:00:00 AM EDT MEDENT ([facility]) Magnetic Resonance Angiography Neck W/O Contrast Materials 09/29/2019 12:00:00 AM EDT MEDENT ([facility]) Magnetic Resonance Angiography Neck W/O Contrast Materials 09/29/2019 12:00:00 AM EDT MEDENT ([facility]) MRI BRAIN BRAIN STEM W/O CONTRAST MATERIAL 09/29/2019 12:00:00 AM EDT MEDENT ([facility]) MRI BRAIN BRAIN STEM W/O CONTRAST MATERIAL 09/29/2019 12:00:00 AM EDT MEDENT ([facility]) Office Visit, Est Pt., Level 3 PC 06/28/2019 12:00:00 AM EDT eCW1 ([facility]) Office Visit, Est Pt., Level 2 FC 06/28/2019 12:00:00 AM EDT eCW1 ([facility]) THER/PROPH/DIAG INJ, SC/IM 03/02/2019 12:00:00 AM EST eCW1 ([facility]) Injection, triamcinolone acetonide, not otherwise specified , 10 mg 03/02/2019 12:00:00 AM EST eCW1 ([facility]) Results ID Date Data Source VITAMIN D 25-HYDROXY 12/13/2019 05:54:24 AM EDT eCW1 ([facility]) Name Value Range Interpretation Code Description Data Tanya rce(s) Supporting Document(s) 28.3 TOTAL 25(OH) VITAMIN D eCW1 ([facility]) ID Date Data Source LIPID PANEL (CARDIAC RISK) 12/13/2019 05:54:24 AM EDT eCW1 ( [facility]) Name Value Range Interpretation Code Description Data Tanya rce(s) Supporting Document(s) Cholesterol in HDL [Moles/volume] in Serum or Plasma 44 HDL CHOLESTEROL eCW1 ([facility]) Cholesterol [Moles/volume] in Serum or Plasma 149 CHOLESTEROL LEVEL eCW1 ([facility]) Triglyceride [Mass/volume] in Serum or Plasma by calculation 99 TRIGLYCERIDES LEVEL eCW1 ([facility]) Cholesterol in LDL [Mass/volume] in Serum or Plasma by calculation 85 LDL CHOLESTEROL eCW1 ([facility]) 105 NON-HDL-C eCW1 ([facility]) 3.386 CHOLESTEROL RISK RATIO eCW1 ([facility]) ID Date Data Source Comprehensive Metabolic Profile (CMP) 12/13/2019 05:54:24 AM EDT eCW1 ([facility]) Name Value Range Interpretation Code Description Data Tanya rce(s) Supporting Document(s) 88 GLUCOSE, FASTING eCW1 ([facility]) 7 BLOOD UREA NITROGEN eCW1 ([facility]) 0.84 CREATININE FOR GFR eCW1 ([facility]) 3.9 POTASSIUM SERUM eCW1 ([facility]) 140 SODIUM LEVEL eCW1 ([facility]) > 60.0 GLOMERULAR FILTRATION RATE eCW 1 ([facility]) 108 CHLORIDE LEVEL eCW1 ([facility]) 28 CARBON DIOXIDE LEVEL eCW1 ([facility]) 26 AST/SGOT eCW1 ([facility]) 9.0 CALCIUM LEVEL eCW1 ([facility]) 7.2 TOTAL PROTEIN eCW1 ([facility]) 0.4 BILIRUBIN,TOTAL eCW1 ([facility]) 27 ALT/SGPT eCW1 ([facility]) 103 ALKALINE PHOSPHATASE eCW1 ([facility]) 0.9 ALBUMIN/GLOBULIN RATIO eCW1 ([facility]) 3.5 ALBUMIN eCW1 ([facility]) ID Date Data Source VITB12 & FOL 06/28/2019 12:00:00 AM EDT eCW1 ([facility]) Name Value Range Interpretation Code Description Data Tanya rce(s) Supporting Document(s) 868 VITAMIN B12 LEVEL eCW1 ([facility]) 10.8 FOLATE eCW1 ([facility]) ID Date Data Source MAGNESIUM LEVEL 06/28/2019 12:00:00 AM EDT eCW1 ([facility]) Name Value Range Interpretation Code Description Data Tanya rce(s) Supporting Document(s) 1.9 1.8-2.4 MAGNESIUM LEVEL eCW1 ([facility]) ID Date Data Source LIVER PROFILE 03/03/2019 12:00:00 AM EST eCW1 ([facility]) Name Value Range Interpretation Code Description Data Tanya rce(s) Supporting Document(s) 21 12-78 ALT/SGPT eCW1 ([facility]) 12 7-37 AST/SGOT eCW1 ([facility]) 120 45-117 ALKALINE PHOSPHATASE eCW1 ([facility]) 0.1 0.0-0.2 BILIRUBIN,DIRECT eCW1 ([facility]) 0.3 0.2-1.0 BILIRUBIN,TOTAL eCW1 ([facility]) 1.00 1.00-1.93 ALBUMIN/GLOBULIN RATIO eCW1 ([facility]) 3.7 3.2-5.2 ALBUMIN eCW1 ([facility]) 7.4 6.4-8.2 TOTAL PROTEIN eCW1 ([facility]) ID Date Data Source TRIGLYCERIDES LEVEL 03/03/2019 12:00:00 AM EST eCW1 ([facility]) Name Value Range Interpretation Code Description Data Tanya rce(s) Supporting Document(s) 89 <150 TRIGLYCERIDES LEVEL eCW1 ([facility]) ID Date Data Source CBC with Differential 03/03/2019 12:00:00 AM EST eCW1 ([facility]) Name Value Range Interpretation Code Description Data Tanya rce(s) Supporting Document(s) 9.5 4.0-10.0 WHITE BLOOD COUNT eCW1 ([facility]) 14.6 12.0-15.5 HEMOGLOBIN eCW1 ([facility]) 5.23 4.00-5.40 RED BLOOD COUNT eCW1 ([facility]) 45.3 36.0-47.0 HEMATOCRIT eCW1 ([facility]) 27.9 27.0-33.0 MEAN CORPUSCULAR HEMOGLOB IN eCW1 ([facility]) 32.2 32.0-36.5 MEAN CORPUSCULAR HGB CONC eCW1 ([facility]) 86.6 80.0-96.0 MEAN CORPUSCULAR VOLUME e CW1 ([facility]) 13.2 11.5-14.5 RED CELL DISTRIBUTION WID TH eCW1 ([facility]) 221 150-450 PLATELET COUNT, AUTOMATED eCW1 ([facility]) 69.7 36.0-66.0 NEUTROPHILS % eCW1 ([facility]) 21.9 24.0-44.0 LYMPH % eCW1 ([facility]) 5.8 0.0-5.0 MONO % eCW1 ([facility]) 0.7 0.0-1.0 BASO % eCW1 ([facility]) 6.6 1.5-8.5 NEUTROPHILS # eCW1 ([facility]) 1.6 0.0-3.0 EOS % eCW1 ([facility]) 0.6 0.0-0.8 MONO # eCW1 ([facility]) 0.2 0.0-0.5 EOS # eCW1 ([facility]) 0.1 0.0-0.2 BASO # eCW1 ([facility]) 2.1 1.5-5.0 LYMPH # eCW1 ([facility]) Procedure Social History Code Duration Value Status Description Data Source(s ) Smoking 01/10/2020 12:00:00 AM EST Former Smoker completed Former Smoker eCW1 ([facility]) Smoking 12/13/2019 12:00:00 AM EDT Former Smoker completed Former Smoker eCW1 ([facility]) Smoking 12/13/2019 12:00:00 AM EDT Former Smoker completed Former Smoker eCW1 ([facility]) Smoking 12/13/2019 12:00:00 AM EDT Former Smoker completed Former Smoker eCW1 ([facility]) Smoking 12/13/2019 12:00:00 AM EDT Former Smoker completed Former Smoker eCW1 ([facility]) Smoking 11/29/2019 12:00:00 AM EDT Former Smoker completed Former Smoker eCW1 ([facility]) Vital Signs ID Date Data Source UNK Name Value Range Interpretation Code Description Data Source(s) Diastolic blood pressure 80 mm[Hg] 80 mm[Hg] eCW1 ([facility]) Systolic blood pressure 120 mm[Hg] 120 mm[Hg] e CW1 ([facility]) Body temperature 98 [degF] 98 [degF] eCW1 ([facility]) Respiratory rate 18 /min 18 /min eCW1 ([facility]) Heart rate 82 /min 82 /min eCW1 ([facility]) Body mass index (BMI) [Ratio] 28.52 kg/m2 28.52 kg/m2 eCW1 ([facility]) Body height 63 [in_i] 63 [in_i] eCW1 ([facility]) Body weight 161 [lb_av] 161 [lb_av] eCW1 ([facility]) Diastolic blood pressure 80 mm[Hg] 80 mm[Hg] eCW1 ([facility]) Systolic blood pressure 130 mm[Hg] 130 mm[Hg] e CW1 ([facility]) Body temperature 97.5 [degF] 97.5 [degF] eCW1 ( [facility]) Respiratory rate 20 /min 20 /min eCW1 ([facility]) Heart rate 82 /min 82 /min eCW1 ([facility]) Body mass index (BMI) [Ratio] 28.52 kg/m2 28.52 kg/m2 eCW1 ([facility]) Body height 63 [in_i] 63 [in_i] eCW1 ([facility]) Body weight 161 [lb_av] 161 [lb_av] eCW1 ([facility]) Diastolic blood pressure 80 mm[Hg] 80 mm[Hg] eCW1 ([facility]) Systolic blood pressure 132 mm[Hg] 132 mm[Hg] e CW1 ([facility]) Body mass index (BMI) [Ratio] 28.48 kg/m2 28.48 kg/m2 eCW1 ([facility]) Body height 63 [in_i] 63 [in_i] eCW1 ([facility]) Body weight 160.8 [lb_av] 160.8 [lb_av] eCW1 ([facility]) Respiratory rate 12 /min 12 /min MEDENT ( [facility] ) Body mass index (BMI) [Ratio] 26.6 kg/m2 26.6 k g/m2 MEDENT ([facility] ) Body weight 155.00 [lb_av] 155.00 [lb_av] MEDEN T ([facility], ) Body height 64 [in_i] 64 [in_i] MEDENT ([facility], ) 5'4" Diastolic blood pressure 70 mm[Hg] 70 mm[Hg] eCW1 ([facility]) Systolic blood pressure 130 mm[Hg] 130 mm[Hg] e CW1 ([facility]) Body temperature 97.3 [degF] 97.3 [degF] eCW1 ( [facility]) Respiratory rate 20 /min 20 /min eCW1 ([facility]) Heart rate 84 /min 84 /min eCW1 ([facility]) Body mass index (BMI) [Ratio] 28.34 kg/m2 28.34 kg/m2 eCW1 ([facility]) Body height 63 [in_us] 63 [in_us] eCW1 ([facility]) Body weight Measured 160 [lb_av] 160 [lb_av] eC W1 ([facility]) Body mass index (BMI) [Ratio] 26.6 kg/m2 26.6 k g/m2 MEDENT ([facility] ) Body weight 155.00 [lb_av] 155.00 [lb_av] MEDEN T ([facility], ) Body height 64 [in_i] 64 [in_i] MEDENT ([facility] ) 5'4" Respiratory rate 12 /min 12 /min MEDENT ( [facility] ) Heart rate 72 /min 72 /min MEDENT ([facility] ) Diastolic blood pressure 58 mm[Hg] 58 mm[Hg] MEDENT ([facility], ) Systolic blood pressure 152 mm[Hg] 152 mm[Hg] M EDENT ([facility], ) Diastolic blood pressure 82 mm[Hg] 82 mm[Hg] eCW1 ([facility]ly [facility], [facility]) Systolic blood pressure 132 mm[Hg] 132 mm[Hg] e CW1 ([facility], [facility]) Body temperature 97.6 [degF] 97.6 [degF] eCW1 ( [facility], [facility]) Respiratory rate 18 /min 18 /min eCW1 ([facility]) Heart rate 58 /min 58 /min eCW1 ([facility]) Body mass index (BMI) [Ratio] 27.63 kg/m2 27.63 kg/m2 W1 ([facility], [facility]) Body height 63 [in_us] 63 [in_us] eCW1 ([facility], [facility]) Body weight Measured 156 [lb_av] 156 [lb_av] eC W1 ([facility], [facility]) Diastolic blood pressure 78 mm[Hg] 78 mm[Hg] eCW1 ([facility], [facility]) Systolic blood pressure 132 mm[Hg] 132 mm[Hg] e CW1 ([facility], [facility]) Body temperature 98.1 [degF] 98.1 [degF] eCW1 ( [facility] [facility], [facility]) Respiratory rate 18 /min 18 /min eCW1 ([facility]) Heart rate 64 /min 64 /min eCW1 ([facility]) Body mass index (BMI) [Ratio] 27.56 kg/m2 27.56 kg/m2 eCW1 ([facility]ly [facility], [facility]) Body height 63 [in_us] 63 [in_us] eCW1 ([facility], [facility]) Body weight Measured 155.6 [lb_av] 155.6 [lb_av ] eCW1 ([facility], [facility]) Patient Treatment Plan of Care Planned Activity Planned Date Details Description Data Source (s) Vitamin D3 25 MCG 12/13/2019 12:00:00 AM EDT eCW1 ([facility], [facility]) Famotidine 40 MG Oral Tablet 12/13/2019 12:00:00 AM EDT eCW1 ([facility], [facility]) Vitamin D3 25 MCG 12/13/2019 12:00:00 AM EDT eCW1 ([facility], [facility]) Famotidine 40 MG Oral Tablet 12/13/2019 12:00:00 AM EDT eCW1 ([facility], [facility]) Vitamin D3 25 MCG 12/13/2019 12:00:00 AM EDT eCW1 ([facility], [facility]) Famotidine 40 MG Oral Tablet 12/13/2019 12:00:00 AM EDT eCW1 ([facility], [facility]) Vitamin D3 25 MCG 12/13/2019 12:00:00 AM EDT eCW1 ([facility], [facility]) Famotidine 40 MG Oral Tablet 12/13/2019 12:00:00 AM EDT eCW1 ([facility], [facility]) Humira 40 MG/0.4ML 12/05/2019 12:00:00 AM EDT eCW1 ([facility], [facility]) Humira 40 MG/0.4ML 12/05/2019 12:00:00 AM EDT eCW1 ([facility], [facility]) Isotretinoin 20 MG Oral Capsule 03/04/2019 12:00:00 AM EST eCW1 ([facility]ly [facility], [facility])
[2020-03-20] MEDS ORDERED: D31000TA2 PO (17:52)
[2020-03-20] MEDS ORDERED: PANT40TA29 PO (17:52)
[2020-03-20] MEDS ORDERED: KCL 40MEQ IN D5/0.45NS 1000ML 1,000 ML IV SCH (18:00)
--- NOTE | 2020-03-20 19:00 | HPEPDOC ---
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 Since then, patient has not had any fevers but felt warm. She had 5-6 episodes of bilious em esis, increasing abdominal distention, feeling like "she was 9 months ," with pleuritic pains and dry heaving with poor appetite. She has not eaten much since Thursday and had a screen yesterday, none today. She had prior episodes of biliary colic which usually subsides, which takes deep breaths after lasting for a few hours, but this time, the pain radiated to the back between her shoulder blades and across the abdomen, prompting her to come to the emergency room where she was found to have a white count of 13,000. Ultrasound showing gallbladder sludging with acute cholecystitis. Hospitalist was asked to admit the patient for acute cholecystitis. Surgery is consulted. . She otherwise denies any cough, documented fever, chills, dysuria, urgency, frequency, constipation, diarrhea. PAST MEDICAL HISTORY: left MCA CVA on chronic aspirin and Plavix atheroma in the ascending thoracic ao rta, gastroesophageal reflux, Schatzki's ring, hiatal hernia, pulmonary fibrosis, fatty liver esophagitis , hyperlipidemia, chronic neck and back pain, pulmonary nodules followed by Dr. Lroenzana, colonic polyps, internal hemorrhoids, deviated nasal septum, bilateral cataracts PAST SURGICAL HISTORY: , Bilateral cataract surgery, right hand surgery, right carpal tunnel, trigger thumb release, deviated nasal septum status post septoplasty, bilateral turbinectomy. Nasal wall repair 2016, Tubal ligation, EGD, hiatal hernia, Schatzki's ring dilation. Colonoscopy SOCIAL HISTORY: , Denies alcohol, tobacco or recreational drug use. Full code. High school graduate FAMILY HISTORY: Father: Alcoholism, Mother: Hypertension, CVA, arthritis ALLERGIES: Please see below. REVIEW OF SYSTEMS: 12 point system negative assessment positive findings in HPI HOME MEDICATIONS: Please see below. PHYSICAL EXAMINATION: VITAL SIGNS: See below GENERAL APPEARANCE: No respiratory distress. No icterus or jaundice HEENT: Dry mucous membranes. Neck is supple, full range of motion. No cervical lymphadenopathy, thyromegaly, stridor, carotid bruits CARDIOVASCULAR: S1, S2, regular rate and rhythm LUNGS: Clear to auscultation. Wheezing, rales or rhonchi ABDOMEN: Right upper quadrant tenderness, distended, hypoactive bowel sounds. No rebound or guarding EXTREMITIES: No cyanosis, clubbing or pitting edema LABORATORY DATA: See below. IMAGING: See below MICROBIOLOGY: Please see below. 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 Since then, patient has not had any fevers but felt warm. She had 5-6 episodes of bilious emesis, increasing abdominal distention, feeling like "she was 9 months ," with pleuritic pains and dry heaving with poor appetite. She has not eaten much since Thursday and had a screen yesterday, none today. She had prior episodes of biliary colic which usually subsides, which takes deep breaths after lasting for a few hours, but this time, the pain radiated to the back between her shoulder blades and across the abdomen, prompting her to come to the emergency room where she was found to have a white count of 13,000. Ultrasound showing gallbladder sludging with acute cholecystitis. Hospitalist was asked to admit the patient for acute cholecystitis. Surgery is consulted. . She otherwise denies any cough, documented fever, chills, dysuria, urgency, frequency, constipation, diarrhea. Acute cholecystitis -Secondary to gallbladder sludging. Supportive care with conservative management, IV fluids, nothing by mouth status except for medications Percocet 1-2 tablets for pain control, IV morphine for breakthrough pain. -Patient's Plavix will be held. She needs to be continued on aspirin due to history of left MCA CVA Per her neurologist. -General surgery has been consult for laparoscopic cholecystectomy at some point. -IV Zosyn for gram-negative and anaerobic coverage. Left MCA CVA with prior expressive aphasia -Plavix has been held -Continue on aspirin Atheroma in the ascending aortic arch -Plavix is being held -Continue on aspirin Schatzki's ring, Gastroesophageal reflux disease, esophagitis, hiatal hernia -IV Protonix daily Fatty liver -Check lipid panel Pulmonary nodules, multiple -Outpatient follow-up with Dr. Harriett Rosales nothing by mouth, IV fluids CODE STATUS full code DVT prophylaxis. Compression stockings Vital Signs Vital Signs Date Time Temp Pulse Resp B/P (MAP) Pulse Ox O2 Delivery O2 Flow Rate FiO2 03/20/20 17:19 97.3 59 18 173/70 (104) 96 Room Air Laboratory Data Labs 24H Laboratory Tests 2 03/20/20 15:41: Immature Granulocyte % (Auto) 0.4, Neutrophils (%) (Auto) 68.5H, Lymphocytes (%) (Auto) 21.7L, Monocytes (%) (Auto) 8.0H, Eosinophils (%) (Auto) 0.8, Basophils (%) (Auto) 0.6, Neutrophils # (Auto) 9.1H, Lymphocytes # (Auto) 2.9, Monocytes # (Auto) 1.1H, Eosinophils # (Auto) 0.1, Basophils # (Auto) 0.1, Nucleated Red Blood Cells % (auto) 0.0, Anion Gap 10, Glomerular Filtration Rate > 60.0, Lactic Acid Level 1.3, Calcium Level 9.2, Total Bilirubin 0.8, Direct Bilirubin 0.3H, Aspartate Amino Transf (AST/SGOT) 18, Alanine Aminotransferase (ALT/SGPT) 26, Alkaline Phosphatase 104, Total Creatine Kinase 51, Creatine Kinase MB < 1.0, Creatine Kinase MB Relative Index 1.96, Troponin I < 0.02, Total Protein 6.9, Albumin 3.4, Albumin/Globulin Ratio 1.0L, Lipase 92 CBC/BMP Laboratory Tests 03/20/20 15:41 Home Medications Scheduled Aspirin (Aspirin EC) 81 Mg Tab, 81 MG PO DAILY Atorvastatin Calcium (Atorvastatin Calcium) 10 Mg Tablet, 10 MG PO DAILY Cholecalciferol (Vitamin D3) (Vitamin D3) 1,000 Unit Tablet, 1,000 UNITS PO DAILY Clopidogrel Bisulfate (Plavix) 75 Mg Tab, 75 MG PO DAILY Pantoprazole Sodium (Pantoprazole Sodium) 40 Mg Tablet.dr, 40 MG PO DAILY Allergies Coded Allergies: procaine (Verified Allergy, Severe, lip swelling, 05/13/19) codeine (Verified Adverse Reaction, Mild, upset stomache, 05/13/19) A-FIB/CHADSVASC A-FIB History Current/History of A-Fib/PAF?: No Current PO Anticoag Therapy: No Age/Risk Factor Scoring CHADSVASC: CHADSVASC Response (Comments) Value Age Risk Factor Age 65-74 years old 1 Gender Risk Factor Female 1 Hx of CHF No 0 Hx of HTN No 0 Hx of Stroke/TIA/or VTE Yes 2 Hx of Diabetes No 0 Hx of Vascular Disease No 0 Total 4 Treatment Treatment ordered: NONE ZULEYKA GARRIDO MD Mar 20, 2020 17:22
[2020-03-20 19:21] LABS: MAGNESIUM LEVEL 1.7 MG/DL (1.8-2.4); POTASSIUM SERUM 3.1 MEQ/L (3.5-5.1)
[2020-03-20] MEDS: NITROGLYCERIN 2% OINT 1 GM *U/D* PKT TOP SCH ×2 (19:56→23:45)
[2020-03-20 20:30] VITALS: BP 156/67
--- NOTE | 2020-03-20 20:44 | CR ---
CONSULTATION DATE: 03/20/2020 CHIEF COMPLAINT: Right upper quadrant pain with evidence of cholecystitis. BRIEF HISTORY OF PRESENT ILLNESS: The patient is a 69-year-old female who has had a 3-day history of right upper quadrant pain radiating to her back. She presents with an elevated white count of 13,000 and on evaluation reveals a thickened gallbladder with a positive sonographic Forman sign. She has had several years of discomfort in the epigastric area and in the right upper quadrant at times. She thought mostly this was her hiatal hernia although has had some problems with her gallbladder reportedly over the years and presents for further evaluation. No acholic stools, no bilirubinuria, no evidence of gallstone pancreatitis. PAST MEDICAL HISTORY: The patient's past medical history is significant for 1. History of stroke. 2. History of hyperlipidemia. 3. History of smoking. 4. History of gastroesophageal reflux disease. 5. History of Schatzki's ring. 6. History of pulmonary fibrosis. 7. History of fatty liver. 8. History of reflux esophagitis. 9. History of hyperlipidemia. 10. Chronic neck pain. 11. Chronic back pain. 12. History of pulmonary nodules. 13. History of colonic polyps. 14. History of deviated septum. SURGICAL HISTORY: The patient's past surgical history is significant for: 1. Carpal tunnel. 2. Bilateral cataract surgery. 3. Right hand surgery. 4. Trigger thumb release. 5. Nasal wall repair. 6. Tubal ligation. 7. EGD. 8. Schatzki's ring dilatation. MEDICATIONS: 1. Aspirin. 2. Atorvastatin. 3. Vitamin D-3. 4. Plavix. 5. Pantoprazole. PHYSICAL EXAMINATION: GENERAL APPEARANCE: A 69-year-old female who looks stated age. HEENT: Unremarkable. NECK: Supple without adenopathy. LUNGS: Clear anteriorly. HEART: Regular. ABDOMEN: Soft, nondistended, mild tenderness in the right upper quadrant without significant guarding, rebound or peritoneal signs. EXTREMITIES: Warm and well perfused. IMPRESSION AND PLAN: The patient has evidence of cholecystitis. Unfortunately, given her Plavix that she has been on and Aspirin, she will need to stay off this a few days prior to a laparoscopic cholecystectomy. However if she gets progressive disease, a percutaneous cholecystostomy tube is warranted during the acute phase if she does not have resolution. However if she has some improvement overnight, then starting on clear liquids in the morning is reasonable and progressing her diet to a low fat diet as tolerated with the plan to have her follow up as an outpatient and plan for an outpatient laparoscopic cholecystectomy.
[2020-03-20] MEDS ORDERED: diphenhydrAMINE 50MG/ML VIAL (J1200) IV ONE (22:30)
[2020-03-20] MEDS ORDERED: diphenhydrAMINE 50MG CAP PO ONE (23:45)
[2020-03-20] MEDS: PIPERACILLIN/TAZOBACTAM SOD 4.5 GM in D5W MINI-BAG PLUS 50 ML IV SCH (23:53)
[2020-03-21 00:33] LABS: INR 1.1; PROTHROMBIN TIME 14.4 SECONDS (12.5-14.3)
[2020-03-21 00:34] LABS: PARTIAL THROMBOPLASTIN TIME 35.6 SECONDS (24.2-38.5)
[2020-03-21] MEDS: NITROGLYCERIN 2% OINT 1 GM *U/D* PKT TOP SCH ×3 (05:34→18:00)
[2020-03-21 06:00] VITALS: BP 136/55
[2020-03-21 06:50] LABS: BASO # 0.1 10^3/uL (0.0-0.2); BASO % 0.6 % (0.0-1.0); EOS # 0.2 10^3/uL (0.0-0.5); EOS % 2.4 % (0.0-3.0); HEMOGLOBIN 12.9 g/dl (12.0-15.5); LYMPH % 23.9 % (24.0-44.0); MEAN CORPUSCULAR HEMOGLOBIN 27.6 pg (27.0-33.0); MEAN CORPUSCULAR HGB CONC 32.3 g/dl (32.0-36.5); MEAN CORPUSCULAR VOLUME 85.5 fl (80.0-96.0); MONO # 0.8 10^3/uL (0.0-0.8); MONO % 9.6 % (0.0-5.0); NEUTROPHILS # 5.3 10^3/uL (1.5-8.5); NEUTROPHILS % 63.3 % (36.0-66.0); PLATELET COUNT, AUTOMATED 174 10^3/uL (150-450); RED BLOOD COUNT 4.68 10^6/uL (4.00-5.40); WHITE BLOOD COUNT 8.4 10^3/uL (4.0-10.0)
[2020-03-21 07:24] LABS: ALBUMIN 2.6 GM/DL (3.2-5.2); ALT/SGPT 18 U/L (12-78); BILIRUBIN,TOTAL 0.7 MG/DL (0.2-1.0); BLOOD UREA NITROGEN 7 MG/DL (7-18); CALCIUM LEVEL 8.5 MG/DL (8.8-10.2); CARBON DIOXIDE LEVEL 28 MEQ/L (21-32); CHLORIDE LEVEL 110 MEQ/L (98-107); CHOLESTEROL LEVEL 103 MG/DL (<200); CHOLESTEROL RISK RATIO 2.861 (<5); CREATININE FOR GFR 0.73 MG/DL (0.55-1.30); GLOMERULAR FILTRATION RATE > 60.0 (>45); GLUCOSE, FASTING 101 MG/DL (70-100); HDL CHOLESTEROL 36 MG/DL (>40); LDL CHOLESTEROL 49 MG/DL (<100); MAGNESIUM LEVEL 1.8 MG/DL (1.8-2.4); NON-HDL-C 67 MG/DL; POTASSIUM SERUM 4.1 MEQ/L (3.5-5.1); SODIUM LEVEL 142 MEQ/L (136-145); TOTAL PROTEIN 6.4 GM/DL (6.4-8.2); TRIGLYCERIDES LEVEL 92 MG/DL (<150)
[2020-03-21] MEDS: PIPERACILLIN/TAZOBACTAM SOD 4.5 GM in D5W MINI-BAG PLUS 50 ML IV SCH ×2 (08:21→17:34)
[2020-03-21] MEDS: ASPIRIN 81 MG CHEW TABLET PO SCH (08:21)
[2020-03-21] MEDS: PANTOPRAZOLE 40MG VIAL (C9113 PER 1) IV SCH (08:21)
--- NOTE | 2020-03-21 09:50 | IPNPDOC ---
Date Seen The patient was seen on 03/21/20. Progress Note SUBJECTIVE: Patient was seen and examined the bedside chart has been reviewed. She was afebrile overnight. No complaints of chills. She had right upper quadrant abdominal pain radiating to her right shoulder between the scapula rated at 7 out of 10 on a pain scale, better when she sits still and leans forward or sits at 90 she had no nausea or vomiting overnight. Surgery as advance her diet to clear liquid diet which she has not tried yet this morning. . She is requesting her Benadryl 25 mg 2 tablets at night for her chronic insomnia OBJECTIVE: PHYSICAL EXAMINATION: VITAL SIGNS: See below GENERAL APPEARANCE: No respiratory distress. No icterus or jaundice HEENT: Moist mucous membranes. Neck is supple, full range of motion. No cervical lymphadenopathy, thyromegaly, stridor, carotid bruits , No JVD CARDIOVASCULAR: S1, S2, regular rate and rhythm., No murmurs noted LUNGS: Clear to auscultation. Wheezing, rales or rhonchi., Air entry is equal bilaterally ABDOMEN: Right upper quadrant tenderness, less distended, hypoactive bowel sounds. No rebound or guarding. , No hepatosplenomegaly EXTREMITIES: No cyanosis, clubbing or pitting edema LABORATORY DATA: See below. IMAGING: See below MICROBIOLOGY: Please see below. 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 Since then, patient has not had any fevers but felt warm. She had 5-6 episodes of bilious emesis, increasing abdominal distention, feeling like "she was 9 months ," with pleuritic pains and dry heaving with poor appetite. She has not eaten much since Thursday and had a screen yesterday, none today. She had prior episodes of biliary colic which usually subsides, which takes deep breaths after lasting for a few hours, but this time, the pain radiated to the back between her shoulder blades and across the abdomen, prompting her to come to the emergency room where she was found to have a white count of 13,000. Ultrasound showing gallbladder sludging with acute cholecystitis. Hospitalist was asked to admit the patient for acute cholecystitis. Surgery is consulted. . She otherwise denies any cough, documented fever, chills, dysuria, urgency, frequency, constipation, diarrhea. Acute cholecystitis -Secondary to gallbladder sludging. -Responding well to Supportive care with conservative management, IV fluids,Percocet 1-2 tablets for pain control, IV morphine for breakthrough pain. -Patient's Plavix will be held. She needs to be continued on aspirin due to history of left MCA CVA Per her neurologist. -General surgery for laparoscopic cholecystectomy at some point. -IV Zosyn for gram-negative and anaerobic coverage. -Was nothing by mouth except for meds on admission on 03/20/2020 -Advanced to clear liquid diet on 03/21/2020 by general surgery. Left MCA CVA with prior expressive aphasia -Plavix has been held -Continue on aspirin per her neurologist Atheroma in the ascending aortic arch -Plavix is being held -Continue on aspirin Schatzki's ring, Gastroesophageal reflux disease, esophagitis, hiatal hernia -IV Protonix daily on 03/20/2020 -Changed to by mouth Protonix on 03/21/2020. Now that she is on a clear liquid diet Fatty liver -Normal. Lipid panel Pulmonary nodules, multiple -Outpatient follow-up with Dr. Harriett Rosales nothing by mouth, IV fluids CODE STATUS full code DVT prophylaxis. Compression stockings Disposition: DC home in 1-2 days pending advancement of diet and pain control VS, I&O, 24H, Fishbone Vital Signs/I&O Vital Signs Date Time Temp Pulse Resp B/P (MAP) Pulse Ox O2 Delivery O2 Flow Rate FiO2 03/21/20 08:31 20 03/21/20 06:00 98.4 61 136/55 (82) 97 03/20/20 20:30 Room Air I&O- Last 24 Hours up to 6 AM 03/21/20 06:00 Intake Total 2100 ml Output Total 400 ml Balance 1700 ml Laboratory Data 24H LABS Laboratory Tests 2 03/20/20 15:41: Immature Granulocyte % (Auto) 0.4, Neutrophils (%) (Auto) 68.5H, Lymphocytes (%) (Auto) 21.7L, Monocytes (%) (Auto) 8.0H, Eosinophils (%) (Auto) 0.8, Basophils (%) (Auto) 0.6, Neutrophils # (Auto) 9.1H, Lymphocytes # (Auto) 2.9, Monocytes # (Auto) 1.1H, Eosinophils # (Auto) 0.1, Basophils # (Auto) 0.1, Nucleated Red Blood Cells % (auto) 0.0, Anion Gap 10, Glomerular Filtration Rate > 60.0, Lactic Acid Level 1.3, Calcium Level 9.2, Total Bilirubin 0.8, Direct Bilirubin 0.3H, Aspartate Amino Transf (AST/SGOT) 18, Alanine Aminotransferase (ALT/SGPT) 26, Alkaline Phosphatase 104, Total Creatine Kinase 51, Creatine Kinase MB < 1.0, Creatine Kinase MB Relative Index 1.96, Troponin I < 0.02, Total Protein 6.9, Albumin 3.4, Albumin/Globulin Ratio 1.0L, Lipase 92 03/20/20 18:44: Erythrocyte Sedimentation Rate 32H, Prothrombin Time 14.4H, Prothromb Time International Ratio 1.10, Activated Partial Thromboplast Time 35.6, Magnesium Level 1.7L, C-Reactive Protein, Quantitative 10.00H 03/21/20 06:39: Immature Granulocyte % (Auto) 0.2, Neutrophils (%) (Auto) 63.3, Lymphocytes (%) (Auto) 23.9L, Monocytes (%) (Auto) 9.6H, Eosinophils (%) (Auto) 2.4, Basophils (%) (Auto) 0.6, Neutrophils # (Auto) 5.3, Lymphocytes # (Auto) 2.0, Monocytes # (Auto) 0.8, Eosinophils # (Auto) 0.2, Basophils # (Auto) 0.1, Nucleated Red Blood Cells % (auto) 0.0, Anion Gap 4L, Glomerular Filtration Rate > 60.0, Calcium Level 8.5L, Total Bilirubin 0.7, Aspartate Amino Transf (AST/SGOT) 15, Alanine Aminotransferase (ALT/SGPT) 18, Alkaline Phosphatase 91, Total Protein 6.4, Albumin 2.6#L, Albumin/Globulin Ratio 0.7L, Magnesium Level 1.8, Tri glycerides Level 92, Total Cholesterol 103, LDL Cholesterol 49, Non-HDL Cholesterol (LDL + VLDL) 67, Total HDL Cholesterol 36L, Cholesterol/HDL Ratio 2.861 CBC/BMP Laboratory Tests 03/20/20 15:41 03/20/20 18:44 03/21/20 06:39 Microbiology Microbiology 03/20/20 Blood Culture, Received Pending 03/20/20 Blood Culture, Received Pending 03/20/20 Respiratory Virus Panel (PCR) ([facility]) - Final, Complete Influenza B ZULEYKA GARRIDO MD Mar 21, 2020 09:50
[2020-03-21] MEDS: ONDANSETRON 4MG/2ML VIAL IV PRN ×2 (10:58→20:52)
--- NOTE | 2020-03-21 12:12 | IPNPDOC ---
Text Note Date of Service The patient was seen on 03/21/20. NOTE General Surgery. Dr Salas. Subjective. The patient is a 69-year-old female who had had a three-day history of right upper quadrant pain radiating to her back who presented with white count of 13,000, imaging with thickened gallbladder and positive sonographic Forman sign, admitted with acute cholecystitis. This morning, the patient states she is feeling better but her discomfort is not totally resolved. She did receive 2 tablets of Percocet this morning for pain 7/10 in intensity described as a constant ache in the right upper quadrant. She has not used any morphine. She states she did feel queasy this morning but denies any nausea or vomiting. She states she does feel like she could try clear liquids. Objective. Afebrile, heart rate 61, respiratory rate 20, blood pressure 136/55, 97% on room air. Patient is resting in bed comfortably. MMM Abdomen. Soft, nondistended. She still has mild tenderness in the right upper quadrant however she does not have any significant guarding, rebound or peritoneal sign. Extremities. No edema, warm and well perfused. I/O 1050/0 +1050 WBC 8.4 which is decreased from admission 13.3. Hemoglobin 12.9 Potassium has improved to 4.1. Serum creatinine 0.73 with GFR greater than 60. Assessment and plan Acute cholecystitis The patient is reviewed and examined with Dr. Salas this morning. The patient continues to have right upper quadrant discomfort, but there is no significant guarding, rebound or peritoneal signs this time. The patient remains afebrile. WBC has normalized. Plan to continue with Zosyn IV. Trial of clear liquids today. The patient has been on Plavix as outpatient, currently aspirin 81 mg daily. Bot h would need to be held prior to laparoscopic cholecystectomy. If she continues to improve, plan for consideration of outpatient laparoscopic cholecystectomy. VS,Fishbone, I+O VS, Fishbone, I+O Laboratory Tests 03/20/20 15:41 03/20/20 18:44 03/21/20 06:39 Vital Signs Date Time Temp Pulse Resp B/P (MAP) Pulse Ox O2 Delivery O2 Flow Rate FiO2 03/21/20 09:01 20 03/21/20 06:00 98.4 61 136/55 (82) 97 03/20/20 20:30 Room Air I&O- Last 24 Hours up to 6 AM 03/21/20 05:59 Intake Total 2100 ml Output Total 0 ml Balance 2100 ml Harper Burks Mar 21, 2020 12:12
[2020-03-21 14:00] VITALS: BP 140/55
[2020-03-21] MEDS: ACETAMINOPHEN TAB 650MG DOSE (2X325MG) PO PRN (20:52)
[2020-03-21] MEDS: diphenhydrAMINE 50MG CAP PO SCH (20:52)
[2020-03-21 22:00] VITALS: BP 147/62
[2020-03-22] MEDS: PIPERACILLIN/TAZOBACTAM SOD 4.5 GM in D5W MINI-BAG PLUS 50 ML IV SCH ×4 (00:38→23:24)
[2020-03-22] MEDS: NITROGLYCERIN 2% OINT 1 GM *U/D* PKT TOP SCH ×4 (05:23→17:44)
[2020-03-22 06:00] VITALS: BP 120/55
[2020-03-22 06:28] LABS: BASO # 0.1 10^3/uL (0.0-0.2); BASO % 0.8 % (0.0-1.0); EOS # 0.3 10^3/uL (0.0-0.5); EOS % 3.4 % (0.0-3.0); HEMATOCRIT 40.1 % (36.0-47.0); HEMOGLOBIN 12.8 g/dl (12.0-15.5); LYMPH # 2.7 10^3/uL (1.5-5.0); LYMPH % 32.3 % (24.0-44.0); MEAN CORPUSCULAR HEMOGLOBIN 27.4 pg (27.0-33.0); MEAN CORPUSCULAR HGB CONC 31.9 g/dl (32.0-36.5); MEAN CORPUSCULAR VOLUME 85.9 fl (80.0-96.0); MONO # 0.7 10^3/uL (0.0-0.8); MONO % 8.4 % (0.0-5.0); NEUTROPHILS # 4.6 10^3/uL (1.5-8.5); NEUTROPHILS % 54.7 % (36.0-66.0); PLATELET COUNT, AUTOMATED 182 10^3/uL (150-450); RED BLOOD COUNT 4.67 10^6/uL (4.00-5.40); WHITE BLOOD COUNT 8.3 10^3/uL (4.0-10.0)
[2020-03-22 06:57] LABS: ALBUMIN 2.7 GM/DL (3.2-5.2); ALT/SGPT 17 U/L (12-78); BILIRUBIN,TOTAL 0.5 MG/DL (0.2-1.0); BLOOD UREA NITROGEN 6 MG/DL (7-18); CALCIUM LEVEL 8.9 MG/DL (8.8-10.2); CARBON DIOXIDE LEVEL 27 MEQ/L (21-32); CHLORIDE LEVEL 109 MEQ/L (98-107); CREATININE FOR GFR 0.89 MG/DL (0.55-1.30); GLOMERULAR FILTRATION RATE > 60.0 (>45); GLUCOSE, FASTING 114 MG/DL (70-100); MAGNESIUM LEVEL 1.9 MG/DL (1.8-2.4); POTASSIUM SERUM 3.5 MEQ/L (3.5-5.1); SODIUM LEVEL 143 MEQ/L (136-145); TOTAL PROTEIN 6.7 GM/DL (6.4-8.2)
[2020-03-22] MEDS: ONDANSETRON 4MG/2ML VIAL IV PRN (08:41)
[2020-03-22] MEDS: PANTOPRAZOLE 40MG VIAL (C9113 PER 1) IV SCH (08:41)
[2020-03-22] MEDS: ASPIRIN 81 MG CHEW TABLET PO SCH (08:41)
--- NOTE | 2020-03-22 11:21 | IPNPDOC ---
Text Note Date of Service The patient was seen on 03/22/20. NOTE General Surgery. Dr Salas. Subjective. The patient is a 69-year-old female who had had a three-day history of right upper quadrant pain radiating to her back who presented with white count of 13,000, imaging with thickened gallbladder and positive sonographic Forman sign, admitted with acute cholecystitis. This morning, the patient states she is feeling about the same, she states her abdominal pain is about the same as compared with yesterday. She states she still has a lot of right upper quadrant pain. She has been drinking some liquid but states if she has a few bites of Jell-O she has increased pain. Last dose of Percocet was yesterday morning. She has not used any morphine. She denies nausea or vomiting. Objective. Afebrile, heart rate 6o, respiratory rate 18, blood pressure 120/55, 93% on room air. Patient is resting in bed comfortably. MMM Abdomen. Soft, nondistended. She still has tenderness in the right upper quadrant however she does not have any significant guarding, rebound or peritoneal sign. Extremities. No edema, warm and well perfused. I/O 650po, 1050IV/2100, -400. WBC 8.3 which is stable compared with yesterday. Hemoglobin 12.8 Serum creatinine 0.73 with GFR greater than 60. Assessment and plan Acute cholecystitis The patient continues to have right upper quadrant discomfort, he states this is about the same as yesterday. Her was no significant guarding, rebound or peritoneal signs this time. The patient remains afebrile. WBC unchanged today. Plan to continue with Zosyn IV. Continue clear liquids. The patient has been on Plavix/aspirin as outpatient for history of CVA. Hospitalist has discussed with Dr. Ren the patient's neurologist who recommends the patient would be able to hold Plavix preoperatively, but is rec ommended to continue aspirin preoperatively. Continue to monitor, tentative plan for consideration of outpatient laparoscopic cholecystectomy. VS,Fishbone, I+O VS, Fishbone, I+O Laboratory Tests 03/22/20 06:10 Vital Signs Date Time Temp Pulse Resp B/P (MAP) Pulse Ox O2 Delivery O2 Flow Rate FiO2 03/22/20 06:00 98.4 60 18 120/55 (76) 93 Room Air I&O- Last 24 Hours up to 6 AM 03/22/20 05:59 Intake Total 700 ml Output Total 2450 ml Balance -1750 ml Harper Burks Mar 22, 2020 11:21
--- NOTE | 2020-03-22 12:38 | IPNPDOC ---
Date Seen The patient was seen on 03/22/20. Progress Note SUBJECTIVE: Complain of increasing right upper quadrant abdominal pain and persistent nausea after trying Jell-O yesterday. She is tolerating liquids. However, without vomiting, no fever, chills overnight., No abdominal distention OBJECTIVE: PHYSICAL EXAMINATION: VITAL SIGNS: See below GENERAL APPEARANCE: No respiratory distress. No icterus or jaundice , Awake, alert, oriented 3. No use of respiratory accessory muscles HEENT: Moist mucous membranes. Neck is supple, full range of motion. No cervical lymphadenopathy, thyromegaly, stridor, carotid bruits , No JVD CARDIOVASCULAR: S1, S2, regular rate and rhythm., No murmurs noted LUNGS: Clear to auscultation. Wheezing, rales or rhonchi., Air entry is equal bilaterally ABDOMEN: Right upper quadrant tenderness, less distended, hypoactive bowel sounds. No rebound or guarding. , No hepatosplenomegaly EXTREMITIES: No cyanosis, clubbing or pitting edema LABORATORY DATA: See below. IMAGING: See below MICROBIOLOGY: Please see below. ASSESSMENT: 69-year-old female with history of left MCA CVA on chronic aspirin and Plavix atheroma in the ascending thoracic aorta, gastroesophageal reflux, Schatzki's ring, hiatal hernia, pulmonary fibrosis, fatty liver esophagitis was in her usual state of health until Thursday evening when she is an orange before going to bed and woke up at 1 AM with severe epigastric and right upper quadrant a bdominal pain radiating to her right shoulder, as well as under the right breast, described as excruciating, better when she sits up and leans forward to stay still, but with no relief with Tylenol 3 tablets every 4 hours. Since then, patient has not had any fevers but felt warm. She had 5-6 episodes of bilious emesis, increasing abdominal distention, feeling like "she was 9 months ," with pleuritic pains and dry heaving with poor appetite. She has not eaten much since Thursday and had a screen yesterday, none today. She had prior episodes of biliary colic which usually subsides, which takes deep breaths after lasting for a few hours, but this time, the pain radiated to the back between her shoulder blades and across the abdomen, prompting her to come to the emergency room where she was found to have a white count of 13,000. Ultrasound showing gallbladder sludging with acute cholecystitis. Hospitalist was asked to admit the patient for acute cholecystitis. Surgery is consulted. . She otherwise denies any cough, documented fever, chills, dysuria, urgency, frequency, constipation, diarrhea. Acute cholecystitis -Secondary to gallbladder sludging. -General surgery has been consulted for laparoscopic cholecystectomy as outpatient -Patient is tolerating a liquid diet but doing poorly with Jell-O with increasing abdominal pain and nausea -As needed antiemetics -If she has episodes of emesis. We'll need to restart intravenous fluids -Patient has had no fever with normal white count, but will defer to surgery if cholecystostomy tube will expedite patient's recovery Left MCA CVA with prior expressive aphasia -Plavix has been held -Continue on aspirin per her neurologist Atheroma in the ascending aortic arch -Plavix is being held -Continue on aspirin Schatzki's ring, Gastroesophageal reflux disease, esophagitis, hiatal hernia -IV Protonix daily on 03/20/2020 -Changed to by mouth Protonix on 03/21/2020. Now that she is on a clear liquid diet Fatty liver -Normal. Lipid panel Pulmonary nodules, multiple -Outpatient follow-up with Dr. Lorenzana Diet nothing by mouth, IV fluids CODE STATUS full code DVT prophylaxis. Compression stockings Disposition: Currently not tolerating Jell-O, unable to advance the diet defer to surgery for any new recommendations. 2-3 more days VS, I&O, 24H, Fishbone Vital Signs/I&O Vital Signs Date Time Temp Pulse Resp B/P (MAP) Pulse Ox O2 Delivery O2 Flow Rate FiO2 03/22/20 12:00 135/57 03/22/20 06:00 98.4 60 18 93 Room Air I&O- Last 24 Hours up to 6 AM 03/22/20 06:00 Intake Total 950 ml Output Total 2050 ml Balance -1100 ml Laboratory Data 24H LABS Laboratory Tests 2 03/22/20 06:10: Immature Granulocyte % (Auto) 0.4, Neutrophils (%) (Auto) 54.7, Lymphocytes (%) (Auto) 32.3, Monocytes (%) (Auto) 8.4H, Eosinophils (%) (Auto) 3.4H, Basophils (%) (Auto) 0.8, Neutrophils # (Auto) 4.6, Lymphocytes # (Auto) 2.7, Monocytes # (Auto) 0.7, Eosinophils # (Auto) 0.3, Basophils # (Auto) 0.1, Nucleated Red Blood Cells % (auto) 0.0, Anion Gap 7L, Glomerular Filtration Rate > 60.0, Calcium Level 8.9, Magnesium Level 1.9, Total Bilirubin 0.5, Aspartate Amino Transf (AST/SGOT) 9, Alanine Aminotransferase (ALT/SGPT) 17, Alkaline Phosphatase 94, Total Protein 6.7, Albumin 2.7L, Albumin/Globulin Ratio 0.7L CBC/BMP Laboratory Tests 03/22/20 06:10 Microbiology Microbiology 03/22/20 Stool Occult Blood (LAUREEN) - Final, Complete 03/20/20 Blood Culture - Preliminary, Resulted No growth after 24 hours . All specim... 03/20/20 Blood Culture - Preliminary, Resulted No growth after 24 hours . All specim... 03/20/20 Respiratory Virus Panel (PCR) (LAUREEN) - Final, Complete Influenza B ZULEYKA GARRIDO MD Mar 22, 2020 12:38
[2020-03-22 14:00] VITALS: BP_SYST 132; BP_SYST 158; BP_DIAS 63; BP_DIAS 74
[2020-03-22] MEDS: ACETAMINOPHEN TAB 650MG DOSE (2X325MG) PO PRN (20:18)
[2020-03-22 22:00] VITALS: BP 157/63
[2020-03-22] MEDS: diphenhydrAMINE 50MG CAP PO SCH (23:24)
[2020-03-23 06:00] VITALS: BP 130/56
[2020-03-23] MEDS: NITROGLYCERIN 2% OINT 1 GM *U/D* PKT TOP SCH ×2 (06:00)
[2020-03-23 06:10] LABS: BASO # 0.1 10^3/uL (0.0-0.2); BASO % 0.9 % (0.0-1.0); EOS # 0.3 10^3/uL (0.0-0.5); EOS % 3.9 % (0.0-3.0); HEMOGLOBIN 13.3 g/dl (12.0-15.5); LYMPH # 2.6 10^3/uL (1.5-5.0); LYMPH % 32.1 % (24.0-44.0); MEAN CORPUSCULAR HEMOGLOBIN 27.6 pg (27.0-33.0); MEAN CORPUSCULAR HGB CONC 32.4 g/dl (32.0-36.5); MEAN CORPUSCULAR VOLUME 85.1 fl (80.0-96.0); MONO # 0.6 10^3/uL (0.0-0.8); MONO % 7.8 % (0.0-5.0); NEUTROPHILS # 4.5 10^3/uL (1.5-8.5); NEUTROPHILS % 55.1 % (36.0-66.0); PLATELET COUNT, AUTOMATED 220 10^3/uL (150-450); RED BLOOD COUNT 4.82 10^6/uL (4.00-5.40); WHITE BLOOD COUNT 8.1 10^3/uL (4.0-10.0)
[2020-03-23 06:36] LABS: ALBUMIN 2.9 GM/DL (3.2-5.2); ALT/SGPT 18 U/L (12-78); BILIRUBIN,TOTAL 0.4 MG/DL (0.2-1.0); BLOOD UREA NITROGEN 5 MG/DL (7-18); CALCIUM LEVEL 8.9 MG/DL (8.8-10.2); CARBON DIOXIDE LEVEL 29 MEQ/L (21-32); CHLORIDE LEVEL 108 MEQ/L (98-107); CREATININE FOR GFR 0.82 MG/DL (0.55-1.30); GLOMERULAR FILTRATION RATE > 60.0 (>45); GLUCOSE, FASTING 88 MG/DL (70-100); POTASSIUM SERUM 3.8 MEQ/L (3.5-5.1); SODIUM LEVEL 144 MEQ/L (136-145); TOTAL PROTEIN 6.4 GM/DL (6.4-8.2)
[2020-03-23] MEDS: PIPERACILLIN/TAZOBACTAM SOD 4.5 GM in D5W MINI-BAG PLUS 50 ML IV SCH (08:00)
[2020-03-23] MEDS: PANTOPRAZOLE 40MG VIAL (C9113 PER 1) IV SCH (09:00)
[2020-03-23] MEDS: ASPIRIN 81 MG CHEW TABLET PO SCH (09:26)
[2020-03-23] MEDS ORDERED: AUGM875T28 PO (09:29)
--- NOTE | 2020-03-23 10:33 | IPNPDOC ---
Text Note Date of Service The patient was seen on 03/23/20. NOTE General Surgery. Dr Salas. Subjective. The patient is a 69-year-old female who had had a three-day history of right upper quadrant pain radiating to her back who presented with white count of 13,000, imaging with thickened gallbladder and positive sonographic Forman sign, admitted with acute cholecystitis. This morning, the patient she is feeling much better and is anxious for discharge. She has been drinking liquids without nausea or vomiting. She has not used any Percocet since 03/21. Objective. Afebrile, heart rate 62, respiratory rate 17, blood pressure 1:30/56, 92% on room air. Patient is resting in bed comfortably. MMM Abdomen. Soft, nondistended. Much less tender in the right upper quadrant, she does not have any guarding, rebound or peritoneal sign. Extremities. No edema, warm and well perfused. I/O 1050 po intake No leukocytosis. Assessment and plan Acute cholecystitis The patient is seen and examined with Dr. Salas this morning. The patient's right upper quadrant discomfort is improved and the patient feels ready for discharge this morning. From surgical standpoint the patient would be okay for discharge today. Would recommend to continue with oral Augmentin as outpatient. Discussed with the patient to follow bland diet, avoid fatty foods. The patient has been on Plavix/aspirin as outpatient for history of CVA. Hospitalist has discussed with Dr. Ren, the patient's neurologist, who recommends the patient would be able to hold Plavix preoperatively, but is recommended to continue aspirin preoperatively. We have advised to continue to hold Plavix over the weekend until she follows up with Dr. Salas in the office on Thursday for further discussion of outpatient laparoscopic cholecystectomy. VS,Fishbone, I+O VS, Fishbone, I+O Laboratory Tests 03/23/20 05:53 Vital Signs Date Time Temp Pulse Resp B/P (MAP) Pulse Ox O2 Delivery O2 Flow Rate FiO2 03/23/20 06:00 98.6 62 17 130/56 (80) 92 Room Air I&O- Last 24 Hours up to 6 AM 03/23/20 06:00 Intake Total 1600 ml Output Total 1000 ml Balance 600 ml Harper Burks Mar 23, 2020 10:33
--- NOTE | 2020-03-23 11:31 | DS.PDOC ---
Discharge Summary General Date of Admission Mar 20, 2020 at 17:22 Date of Discharge 03/23/20 Discharge Summary DISCHARGE DIAGNOSES: Acute cholecystitis Gallbladder sludging History of left MCA CVA-needs to continue on aspirin, Plavix discontinued History of atheroma in ascending aortic arch history of Schatzki's ring Gastroesophageal reflux disease esophagitis hiatal hernia Fatty liver Pulmonary nodules, multiple DISCHARGE MEDICATIONS: SEE BELOW ALLERGIES: SEE BELOW DISCHARGE INSTRUCTIONS: Per neurologist behavioral intervention specialist, Dr. Abdul, since the patient had a LARGE LEFT MCA CVA, she needs to be continued on aspirin, but okay to discontinue Plavix. Primary care physician appointment within 5 days. Surgical appointment articles and fluoroscopic cholecystectomy is recommended. Complete a total of 7 days of antibiotic HOSPITAL COURSE: 69-year-old female with history of left MCA CVA on chronic aspirin and Plavix atheroma in the ascending thoracic aorta, gastroesophageal reflux, Schatzki's ring, hiatal hernia, pulmonary fibrosis, fatty liver esophagitis was in her usual state of health until Thursday evening when she is an orange before going to bed and woke up at 1 AM with severe epigastric and right upper quadrant abdominal pain radiating to her right shoulder, as well as under the right breast, described as excruciating, better when she sits up and leans forward to stay still, but with no relief with Tylenol 3 tablets every 4 hours. Since then, patient has not had any fevers but felt warm. She had 5-6 episodes of bilious emesis, increasing abdominal distention, feeling like "she was 9 months ," with pleuritic pains and dry heaving with poor appetite. She has not eaten much since Thursday and had a screen yesterday, none today. She had prior episodes of biliary colic which usually subsides, which takes deep breaths after lasting for a few hours, but this time, the pain radiated to the back between her shoulder blades and across the abdomen, prompting her to come to the emergen cy room where she was found to have a white count of 13,000. Ultrasound showing gallbladder sludging with acute cholecystitis. Hospitalist was asked to admit the patient for acute cholecystitis. Surgery is consulted. . She otherwise denies any cough, documented fever, chills, dysuria, urgency, frequency, constipation, diarrhea. Acute cholecystitis -Secondary to gallbladder sludging. -General surgery has been consulted for laparoscopic cholecystectomy as outpatient -Patient is tolerating a liquid diet -As needed antiemetics Left MCA CVA with prior expressive aphasia -Plavix has been held -Continue on aspirin per her neurologist Atheroma in the ascending aortic arch -Plavix is being held -Continue on aspirin Schatzki's ring, Gastroesophageal reflux disease, esophagitis, hiatal hernia -iv Protonix daily on 03/20/2020 -Changed to by mouth Protonix on 03/21/2020. Now that she is on oral diet Fatty liver -Normal. Lipid panel Pulmonary nodules, multiple -Outpatient follow-up with Dr. Lorenzana CODE STATUS full code DVT prophylaxis. Compression stockings PHYSICAL EXAMINATION: VITAL SIGNS: See below GENERAL APPEARANCE: No respiratory distress. No icterus or jaundice , Awake, alert, oriented 3. No use of respiratory accessory muscles HEENT: Moist mucous membranes. Neck is supple, full range of motion. No cervical lymphadenopathy, thyromegaly, stridor, carotid bruits , No JVD CARDIOVASCULAR: S1, S2, regular rate and rhythm., No murmurs noted LUNGS: Clear to auscultation. Wheezing, rales or rhonchi., Air entry is equal bilaterally ABDOMEN: Right upper quadrant less tender, less distended, normoactive bowel sounds. No rebound or guarding. , No hepatosplenomegaly EXTREMITIES: No cyanosis, clubbing or pitting edema DISCHARGE LABORATORY DATA: See below. IMAGING: See below INDICATION: right abdominal pain/ HX gallstones COMPARISON: None. TECHNIQUE: Real time pineda scale ultrasound examination using curved array transducer. FINDINGS: Liver is hyperechoic and normal in size without focal hepatic lesion identified. Pancreas is incompletely evaluated due to interposed bowel gas. The gallbladder demonstrates sludge and gallstones with wall thickening to 6 mm and sonographic Forman sign. Common bile duct is upper limits of normal at 7 mm. Right kidney is normal in reniform shape without hydronephrosis and measures 8.6 x 5.0 x 4.2 cm. No ascites in the visualized right upper quadrant. IMPRESSION: 1. Right upper quadrant pain and biliary findings raise the possibility of acute cholecystitis. Correlation is required. 2. Hepatosteatosis. <Electronically signed by Jose Alfredo Mercedes > 03/20/20 [id number] MICROBIOLOGY: Please see below. TIME SPENT ON DISCHARGE: 30 MINUTES Vital Signs/I&Os Vital Signs Date Time Temp Pulse Resp B/P (MAP) Pulse Ox O2 Delivery O2 Flow Rate FiO2 03/23/20 06:00 98.6 62 17 130/56 (80) 92 Room Air I&O- Last 24 Hours up to 6 AM 03/23/20 06:00 Intake Total 1600 ml Output Total 1000 ml Balance 600 ml Laboratory Data Labs 24H Laboratory Tests 2 03/23/20 05:53: Immature Granulocyte % (Auto) 0.2, Neutrophils (%) (Auto) 55.1, Lymphocytes (%) (Auto) 32.1, Monocytes (%) (Auto) 7.8H, Eosinophils (%) (Auto) 3.9H, Basophils (%) (Auto) 0.9, Neutrophils # (Auto) 4.5, Lymphocytes # (Auto) 2.6, Monocytes # (Auto) 0.6, Eosinophils # (Auto) 0.3, Basophils # (Auto) 0.1, Nucleated Red Blood Cells % (auto) 0.0, Anion Gap 7L, Glomerular Filtration Rate > 60.0, Calcium Level 8.9, Magnesium Level 2.0, Total Bilirubin 0.4, Aspartate Amino Transf (AST/SGOT) 16, Alanine Aminotransferase (ALT/SGPT) 18, Alkaline Phosphatase 91, Total Protein 6.4, Albumin 2.9L, Albumin/Globulin Ratio 0.8L CBC/BMP Laboratory Tests 03/23/20 05:53 Microbiology Microbiology 03/22/20 Stool Occult Blood (LAUREEN) - Final, Complete 03/20/20 Blood Culture - Preliminary, Resulted No Growth after 48 hours. All Specime... 03/20/20 Blood Culture - Preliminary, Resulted No Growth after 48 hours. All Specime... 03/20/20 Respiratory Virus Panel (PCR) (LAUREEN) - Final, Complete Influenza B Discharge Medications Scheduled Amoxicillin/Potassium Clav (Augmentin 875-125 Tablet) 1 Each Tablet, 875 TAB PO BID Aspirin (Aspirin EC) 81 Mg Tab, 81 MG PO DAILY, (Reported) Atorvastatin Calcium (Atorvastatin Calcium) 10 Mg Tablet, 10 MG PO DAILY, (Reported) Cholecalciferol (Vitamin D3) (Vitamin D3) 1,000 Unit Tablet, 1,000 UNITS PO D AILY, (Reported) Pantoprazole Sodium (Pantoprazole Sodium) 40 Mg Tablet.dr, 40 MG PO DAILY, (Reported) Allergies Coded Allergies: procaine (Verified Allergy, Severe, lip swelling, 05/13/19) codeine (Verified Adverse Reaction, Mild, upset stomache, 05/13/19) ZULEYKA GARRIDO MD Mar 23, 2020 11:23
== END 2020-03-23 10:22 | disposition home or self-care (01) | DRG 446 ==
LOC: M ED 14:29 → M ED INP 17:22 → M MSPAV 20:28
PROVIDERS: ADMIT General Practice; ATTEND General Practice
DX: K81.0 Acute cholecystitis (principal); I70.0 Atherosclerosis of aorta; K21.00 Gastro-esophageal reflux disease with esophagitis, without bleeding; K44.9 Diaphragmatic hernia without obstruction or gangrene; K22.2 Esophageal obstruction; J84.10 Pulmonary fibrosis, unspecified; K76.0 Fatty (change of) liver, not elsewhere classified; E78.5 Hyperlipidemia, unspecified; R91.8 Other nonspecific abnormal finding of lung field; Z98.41 Cataract extraction status, right eye; Z98.42 Cataract extraction status, left eye; Z86.010 Personal history of colon polyps; Z86.73 Personal history of transient ischemic attack (TIA), and cerebral infarction without residual deficits; Z79.02 Long term (current) use of antithrombotics/antiplatelets; Z79.82 Long term (current) use of aspirin; Z79.899 Other long term (current) drug therapy; Z88.5 Allergy status to narcotic agent; Z88.8 Allergy status to other drugs, medicaments and biological substances; Z87.891 Personal history of nicotine dependence

== ENCOUNTER → 2020-04-15 | Outpatient (CLI) | payer MEDICARE ==
[~2020-04-15] MED LIST changes: +AUGM875T28 PO; +D31000TA2 PO
== END ==
LOC: M LABSMTC 10:06
PROVIDERS: ATTEND Anesthesiology
DX: Z01.812 Encounter for preprocedural laboratory examination (principal); Z20.822 Contact with and (suspected) exposure to COVID-19

== ENCOUNTER 2020-04-20 07:24 | Day surgery (SDC) | payer MEDICARE ==
[~2020-04-20] VITALS: Ht 162.6 cm; Wt 71.6 kg
[~2020-04-20 07:24] MED LIST changes: +LR 1,000 ML IV ONE; +ceFAZolin SOD 2 GM in IV 1 EA IV ONE
[2020-04-20] MEDS ORDERED: MIDAZOLAM INJ 2MG/2ML VIAL (J2250 PER 1MG) As Ordered ONE (08:01)
[2020-04-20] MEDS ORDERED: dexameTHASONE 4 MG/ML 1ML VIAL (J1100 PER 1MG) As Ordered ONE (08:01)
[2020-04-20] MEDS ORDERED: fentaNYL 250 MCG/5 ML INJECTION (J3010) As Ordered ONE (08:01)
[2020-04-20] MEDS ORDERED: LIDOCAINE 2% 100MG/5ML SDV (FOR ANES.) As Ordered ONE (08:01)
[2020-04-20] MEDS ORDERED: ONDANSETRON 4MG/2ML VIAL As Ordered ONE (08:01)
[2020-04-20] MEDS ORDERED: KETOROLAC 60MG 2ML VIAL As Ordered ONE (08:01)
[2020-04-20] MEDS ORDERED: ROCURONIUM BROMIDE 50 MG/5 ML VIAL As Ordered ONE (08:01)
[2020-04-20] MEDS ORDERED: propofoL 200 MG/20 ML VIAL As Ordered ONE (08:02)
[2020-04-20] MEDS ORDERED: SUGAMMADEX SODIUM 500 MG/5 ML VIAL (BRIDION) As Ordered ONE (08:12)
[2020-04-20] MEDS ORDERED: LABETALOL 100MG/20ML VIAL As Ordered ONE (08:35)
[2020-04-20] MEDS ORDERED: ASPIRIN 81 MG CHEW TABLET As Ordered ONE (08:51)
[2020-04-20] MEDS ORDERED: ASPIRIN 81 MG CHEW TABLET PO ONE (09:05)
[2020-04-20] MEDS ORDERED: BUPIVACAINE/EPIN 0.25% 30 ML VIAL As Ordered ONE (09:26)
[2020-04-20] MEDS ORDERED: ACETAMINOPHEN 1000MG 100ML IV BTL (OFIRMEV) (J0131 PER 10MG) As Ordered ONE (10:03)
[2020-04-20] MEDS ORDERED: ePHEDrine SULFATE 25 MG/5 ML(5MG/ML) SYRINGE As Ordered ONE (10:05)
[2020-04-20] MEDS ORDERED: ONDANSETRON 4MG/2ML VIAL IV PRN (11:10)
[2020-04-20] MEDS ORDERED: oxyCODONE 5MG TAB PO PRN (11:10)
[2020-04-20] MEDS ORDERED: LR 1,000 ML IV SCH (11:10)
[2020-04-20] MEDS ORDERED: traMADol 50 MG TAB PO PRN (11:15)
[2020-04-20] MEDS ORDERED: NS 1,000 ML IV SCH (11:15)
[2020-04-20] MEDS: fentaNYL 100 MCG/2 ML INJECTION (J3010) IV PRN ×2 (11:28→11:36)
[2020-04-20 12:35] VITALS: BP 153/68
== END 2020-04-20 12:40 | disposition home or self-care (01) ==
LOC: M SDC 07:24
PROVIDERS: ATTEND Surgery
DX: K80.10 Calculus of gallbladder with chronic cholecystitis without obstruction (principal); J44.9 Chronic obstructive pulmonary disease, unspecified; K21.9 Gastro-esophageal reflux disease without esophagitis; Z88.5 Allergy status to narcotic agent; Z79.02 Long term (current) use of antithrombotics/antiplatelets; Z79.899 Other long term (current) drug therapy; Z86.73 Personal history of transient ischemic attack (TIA), and cerebral infarction without residual deficits; Z87.891 Personal history of nicotine dependence
CPT/HCPCS: 47562; 88304; J0131; J0690; J1100; J1885; J2250; J2405; J3010

== ENCOUNTER → 2020-06-04 | Outpatient (REF) | payer MEDICARE ==
[~2020-06-04] MED LIST changes: -LR 1,000 ML IV ONE; -ceFAZolin SOD 2 GM in IV 1 EA IV ONE
== END ==
LOC: M SFHCPLAZ 09:40
PROVIDERS: ATTEND Physician Assistant
DX: R39.15 Urgency of urination (principal)

== ENCOUNTER → 2020-07-13 | Outpatient (REF) | payer MEDICARE ==
[2020-07-13 10:51] LABS: HEMATOCRIT 43.1 % (36.0-47.0); HEMOGLOBIN 13.6 g/dl (12.0-15.5); MEAN CORPUSCULAR HEMOGLOBIN 27.8 pg (27.0-33.0); MEAN CORPUSCULAR HGB CONC 31.6 g/dl (32.0-36.5); PLATELET COUNT, AUTOMATED 215 10^3/uL (150-450)
[2020-07-13 11:49] LABS: ALBUMIN 3.4 GM/DL (3.2-5.2); ALT/SGPT 31 U/L (12-78); BILIRUBIN,TOTAL 0.4 MG/DL (0.2-1.0); BLOOD UREA NITROGEN 6 MG/DL (7-18); CALCIUM LEVEL 9.1 MG/DL (8.8-10.2); CARBON DIOXIDE LEVEL 29 MEQ/L (21-32); CHLORIDE LEVEL 109 MEQ/L (98-107); CREATININE FOR GFR 0.68 MG/DL (0.55-1.30); GLOMERULAR FILTRATION RATE > 60.0 (>45); GLUCOSE, FASTING 109 MG/DL (70-100); POTASSIUM SERUM 3.3 MEQ/L (3.5-5.1); SODIUM LEVEL 144 MEQ/L (136-145); TOTAL 25(OH) VITAMIN D 27.2 NG/ML (30.0-100.0); TOTAL PROTEIN 7.1 GM/DL (6.4-8.2)
== END ==
LOC: M PLALAB 08:25
PROVIDERS: ATTEND Nurse Practitioner Family
DX: I69.90 Unspecified sequelae of unspecified cerebrovascular disease (principal); E55.9 Vitamin D deficiency, unspecified; R39.9 Unspecified symptoms and signs involving the genitourinary system

== ENCOUNTER → 2020-07-17 | Outpatient (REF) | payer MEDICARE ==
[2020-07-17 15:43] LABS: BLOOD UREA NITROGEN 11 MG/DL (7-18); CALCIUM LEVEL 9.3 MG/DL (8.8-10.2); CARBON DIOXIDE LEVEL 27 MEQ/L (21-32); CHLORIDE LEVEL 107 MEQ/L (98-107); GLOMERULAR FILTRATION RATE > 60.0 (>45); GLUCOSE, FASTING 83 MG/DL (70-100); POTASSIUM SERUM 3.6 MEQ/L (3.5-5.1); SODIUM LEVEL 141 MEQ/L (136-145)
== END ==
LOC: M SFHCPLAZ 13:57
PROVIDERS: ATTEND Nurse Practitioner Family
DX: E87.6 Hypokalemia (principal)
CPT/HCPCS: 36415; 80048; G0463

== ENCOUNTER → 2020-08-11 | Outpatient (CLI) | payer MEDICARE ==
[~2020-08-11] MED LIST changes: +CYAN100050 PO; +RA B2500 PO
== END ==
LOC: M LABSMTC 08:14
PROVIDERS: ATTEND Anesthesiology
DX: Z01.818 Encounter for other preprocedural examination (principal); Z11.52 Encounter for screening for COVID-19

== ENCOUNTER 2020-08-16 10:54 | Day surgery (SDC) | payer MEDICARE ==
[~2020-08-16] VITALS: Ht 162.6 cm; Wt 68.5 kg
[~2020-08-16 10:54] MED LIST changes: +NS 1,000 ML IV ONE
[2020-08-16] MEDS ORDERED: fentaNYL 100 MCG/2 ML INJECTION (J3010) As Ordered ONE (11:06)
[2020-08-16] MEDS ORDERED: LIDOCAINE 2% MDV 20ML VIAL As Ordered ONE (11:06)
[2020-08-16] MEDS ORDERED: propofoL 200 MG/20 ML VIAL As Ordered ONE (11:06)
--- NOTE | 2020-08-16 11:44 | ROOR ---
Patient Name: Angi Narvaez Procedure Date: 08/16/2020 11:23 AM Date of : 1950 Age: 69 Room: [facility] Gender: Female Note Status: Finalized Procedure: Upper GI endoscopy Indications: Dysphagia Providers: Clovis Salas Jr, MD Referring MD: Blanche Graff NP Requesting Provider: Medicines: Propofol per Anesthesia Complications: No immediate complications. Procedure: Pre-Anesthesia Assessment: - Prior to the procedure, a History and Physical was performed, and patient medications and allergies were reviewed. The patient is competent. The risks and benefits of the procedure and the sedation options and risks were discussed with the patient. All questions were answered and informed consent was obtained. Patient identification and proposed procedure were verified by the physician and the nurse in the pre-procedure area and in the procedure room. Mental Status Examination: alert and oriented. Airway Examination: normal oropharyngeal airway and neck mobility. Respiratory Examination: clear to auscultation. CV Examination: normal. ASA Grade Assessment: II - A patient with mild systemic disease. After reviewing the risks and benefits, the patient was deemed in satisfactory condition to undergo the procedure. The anesthesia plan was to use moderate sedation / analgesia (conscious sedation). Immediately prior to administration of medications, the patient was re-assessed for adequacy to receive sedatives. The heart rate, respiratory rate, oxygen saturations, blood pressure, adequacy of pulmonary ventilation, and response to care were monitored throughout the procedure. The physical status of the patient was re-assessed after the procedure. The Endoscope was introduced through the mouth, and advanced to the second part of duodenum. The upper GI endoscopy was accomplished without difficulty. The patient tolerated the procedure well. Findings: The upper third of the esophagus was normal. Abnormal motility was noted in the middle third of the esophagus and in the lower third of the esophagus. The cricopharyngeus was abnormal. There is spasticity and extra peristaltic waves of the esophageal body. The distal esophagus/lower esophageal sphincter is spastic, but gives up passage to the endoscope. A TTS dilator was passed through the scope. Dilation with a 15-16.5-18 mm balloon dilator was performed to 18 mm. The gastric fundus, gastric body, gastric antrum, prepyloric region of the stomach and pylorus were normal. The duodenal bulb, first portion of the duodenum and second portion of the duodenum were normal. Impression: - Normal upper third of esophagus. - Abnormal esophageal motility, suspicious for esophageal spasm. Dilated. - Normal gastric fundus, gastric body, antrum, prepyloric region of the stomach and pylorus. - Normal duodenal bulb, first portion of the duodenum and second portion of the duodenum. - No specimens collected. Recommendation: - Discharge patient to home (ambulatory). - Return to my office as previously scheduled. - Perform a barium swallow using barium in liquid and tablet form at appointment to be scheduled. - Perform routine esophageal manometry at appointment to be scheduled. Procedure Code(s): --- Professional --- 91231, Esophagogastroduodenoscopy, flexible, transoral; with transendoscopic balloon dilation of esophagus (less than 30 mm diameter) Diagnosis Code(s): --- Professional --- K22.4, Dyskinesia of esophagus R13.10, Dysphagia, unspecified CPT copyright 2019 [employer]. All rights reserved. The codes documented in this report are preliminary and upon death surveys coder review may be revised to meet current compliance requirements. Clovis Salas MD Clovis Salas Jr, MD 08/16/2020 11:44:23 AM Electronically signed by Clovis Salas Jr, MD Number of Addenda: 0 Note Initiated On: 08/16/2020 11:23 AM Estimated Blood Loss: Estimated blood loss: none.
[2020-08-16 12:12] VITALS: BP 149/67
== END 2020-08-16 12:14 | disposition home or self-care (01) ==
LOC: M OPP 10:54
PROVIDERS: ATTEND Surgery
DX: K22.4 Dyskinesia of esophagus (principal); R13.10 Dysphagia, unspecified; K76.0 Fatty (change of) liver, not elsewhere classified; J44.9 Chronic obstructive pulmonary disease, unspecified; Z79.82 Long term (current) use of aspirin; Z79.899 Other long term (current) drug therapy; Z88.5 Allergy status to narcotic agent; Z88.8 Allergy status to other drugs, medicaments and biological substances; Z87.891 Personal history of nicotine dependence
CPT/HCPCS: 43249; J3010

== ENCOUNTER 2020-08-20 11:52 | Day surgery (SDC) | payer MEDICARE ==
[~2020-08-20] VITALS: Ht 162.6 cm; Wt 68.6 kg
[~2020-08-20 11:52] MED LIST changes: -NS 1,000 ML IV ONE
[2020-08-20 12:35] LABS: BASO # 0.1 10^3/uL (0.0-0.2); EOS # 0.3 10^3/uL (0.0-0.5); EOS % 3.4 % (0.0-3.0); HEMATOCRIT 44.9 % (36.0-47.0); HEMOGLOBIN 14.3 g/dl (12.0-15.5); LYMPH % 23.4 % (24.0-44.0); MEAN CORPUSCULAR HEMOGLOBIN 27.5 pg (27.0-33.0); MEAN CORPUSCULAR HGB CONC 31.8 g/dl (32.0-36.5); MEAN CORPUSCULAR VOLUME 86.3 fl (80.0-96.0); MONO # 0.6 10^3/uL (0.0-0.8); MONO % 7.3 % (2.0-8.0); NEUTROPHILS # 5.4 10^3/uL (1.5-8.5); NEUTROPHILS % 64.5 % (36.0-66.0); PLATELET COUNT, AUTOMATED 227 10^3/uL (150-450); WHITE BLOOD COUNT 8.4 10^3/uL (4.0-10.0)
[2020-08-20] MEDS ORDERED: fentaNYL 100 MCG/2 ML INJECTION (J3010) As Ordered ONE (12:58)
[2020-08-20] MEDS ORDERED: propofoL 200 MG/20 ML VIAL As Ordered ONE (12:58)
[2020-08-20] MEDS ORDERED: LIDOCAINE 2% 100MG/5ML SDV (FOR ANES.) As Ordered ONE (12:58)
[2020-08-20] MEDS ORDERED: ROCURONIUM BROMIDE 50 MG/5 ML VIAL As Ordered ONE (12:58)
[2020-08-20] MEDS ORDERED: SUCCINYLCHOLINE 100 MG/5 ML SYRINGE (J0330) As Ordered ONE (12:58)
[2020-08-20] MEDS ORDERED: MIDAZOLAM INJ 2MG/2ML VIAL (J2250 PER 1MG) As Ordered ONE (12:59)
[2020-08-20] MEDS ORDERED: ONDANSETRON 4MG/2ML VIAL As Ordered ONE (12:59)
[2020-08-20] MEDS ORDERED: dexameTHASONE 4 MG/ML 1ML VIAL (J1100 PER 1MG) As Ordered ONE (12:59)
[2020-08-20 13:03] LABS: BLOOD UREA NITROGEN 7 MG/DL (7-18); CALCIUM LEVEL 8.8 MG/DL (8.8-10.2); CARBON DIOXIDE LEVEL 29 MEQ/L (21-32); CHLORIDE LEVEL 109 MEQ/L (98-107); CREATININE FOR GFR 0.89 MG/DL (0.55-1.30); GLOMERULAR FILTRATION RATE > 60.0 (>45); GLUCOSE, FASTING 110 MG/DL (70-100); POTASSIUM SERUM 4.7 MEQ/L (3.5-5.1); SODIUM LEVEL 141 MEQ/L (136-145)
[2020-08-20 13:10] LABS: RSV AMPLIFICATION NEGATIVE (NEGATIVE)
[2020-08-20] MEDS ORDERED: ONDANSETRON 4MG/2ML VIAL IV PRN (14:15)
[2020-08-20] MEDS ORDERED: fentaNYL 100 MCG/2 ML INJECTION (J3010) IV PRN (14:15)
[2020-08-20] MEDS ORDERED: LR 1,000 ML IV SCH (14:15)
--- NOTE | 2020-08-20 14:20 | HPE ---
HISTORY AND PHYSICAL DATE OF ADMISSION: 08/20/2020 CHIEF COMPLAINT: Esophageal food impaction. HISTORY OF PRESENT ILLNESS: The patient is a 69-year-old female with history of known esophageal stricture. She has had food stuck in her throat a couple of times last year that had to be removed. She just underwent elective outpatient upper endoscopy with dilation of the mid esophagus with Dr. Salas this past . Last evening she had got a piece of steak stuck in her esophagus, she tried overnight by herself to get it out. She has tried satnam mariano, swallowing water, multiple different techniques and was unable to do it successfully on her own so she came into the emergency room for evaluation. She denies any nausea, vomiting, no fevers or chills. She is able to swallow secretions slightly but is choking them up still. PAST MEDICAL HISTORY: CVA. PAST SURGICAL HISTORY: Cholecystectomy, tubal ligation, carpal tunnel and multiple EGDs. SOCIAL HISTORY: Negative. FAMILY HISTORY: Noncontributory. REVIEW OF SYSTEMS: Pertinent positives and negatives as noted in HPI. PHYSICAL EXAMINATION: GENERAL: Alert and oriented x3. No acute distress. VITALS: Temp 97.1, pulse 83, respirations 19, blood pressure 115/87, pulse ox 94% on room air. HEENT: Pupils equal, round and reactive to light and accommodation. HEART: S1, S2, regular rate and rhythm. LUNGS: Clear to auscultation bilaterally. ABDOMEN: Soft, nontender, non-distended. EXTREMITIES: No cyanosis, clubbing or edema. LABS: White count 8.4, hemoglobin 14.3, platelets 227. ASSESSMENT/PLAN: Patient is a 69-year-old female with esophageal food impaction and known history of esophageal stricture. Recommendation is to take her urgently to the operating room for EGD with removal of the foreign food bolus. Risks and benefits of procedure not limited to but including bleeding, infection, perforation, damage to surrounding structures, need for further surgery were discussed in detail with the patient and informed consent was obtained and procedure was scheduled. Postoperatively she will be discharged home and will follow up with Dr. Salas in the office as an outpatient.
--- NOTE | 2020-08-20 14:20 | RO ---
OPERATIVE NOTE DATE OF OPERATION: 08/20/2020 PREOPERATIVE DIAGNOSIS: Esophageal food impaction. POSTOPERATIVE DIAGNOSIS: Esophageal food impaction with steak stuck in the mid-esophagus at a stricture point. PROCEDURE: Esophagogastrojejunoscopy with removal of esophageal food bolus. SURGEON: David Parks DO ASSISTANT NEWS DIRECTOR: None. ANESTHESIA: General. ESTIMATED BLOOD LOSS: None. COMPLICATIONS: None. INDICATIONS FOR PROCEDURE: The patient is a 69-year-old female who presents with esophageal food bolus. The food impaction started yesterday evening. She was unable to pass on her own. Recommendations were to take her for EGD with removal. Risks and benefits of the procedure are not limited to but include bleeding, infection, perforation, need for further surgery were discussed in detail to the patient. Informed consent was obtained and procedure is planned. DESCRIPTION OF PROCEDURE: The patient was brought back to operating room 3. After sufficient general sedation, she was placed in left lateral decubitus position. Next, a timeout was done to confirm proper patient and proper procedure. Following that, an endoscope was passed down the oropharynx into the esophagus. In the midesophagus, steak was identified. I was able to push it lightly with a scope and push it into the stomach. Once that was completed, I was able to pass a scope through the pylorus into the duodenum and slowly retract it back. No signs of any gastritis or inflammation. A retroflexed scope did not show any hiatal hernias. The scope was then retracted back up into the esophagus. In the midesophagus, there was a slight stricture but I was able to easily pass the scope through it with no resistance. The scope was then removed. The patient was awakened from anesthesia and sent to PACU in stable condition.
[2020-08-20 14:30] VITALS: BP 134/64
== END 2020-08-20 14:43 | disposition home or self-care (01) ==
LOC: M ED 11:52 → M SDC 12:22
PROVIDERS: ATTEND Surgery
DX: T18.128A Food in esophagus causing other injury, initial encounter (principal); K22.2 Esophageal obstruction; Y92.89 Other specified places as the place of occurrence of the external cause; R10.9 Unspecified abdominal pain; R13.10 Dysphagia, unspecified; E78.5 Hyperlipidemia, unspecified; Z86.73 Personal history of transient ischemic attack (TIA), and cerebral infarction without residual deficits; Z87.891 Personal history of nicotine dependence
CPT/HCPCS: 43247; 80048; 85025; 87631; 99284; J0330; J1100; J2250; J2405; J3010

== ENCOUNTER → 2020-09-24 | Outpatient (CLI) | payer MEDICARE ==
[~2020-09-24] MED LIST changes: +E-Z-GAS II EFFERVESCENT PACKET (SODIUM BICARB./CITRIC ACID/SIMETHICONE) As Ordered ONE; +E-Z-HD 98% w/w 340GM SUSP BTL As Ordered ONE; +E-Z-PAQUE 96% w/w SUSP 176GM BTL As Ordered ONE
== END ==
LOC: M RAD 09:29
PROVIDERS: ATTEND Physician Assistant
DX: R13.10 Dysphagia, unspecified (principal); K22.4 Dyskinesia of esophagus; K21.00 Gastro-esophageal reflux disease with esophagitis, without bleeding

== ENCOUNTER → 2020-12-04 | Outpatient (CLI) | payer MEDICARE ==
[~2020-12-04] MED LIST changes: -E-Z-GAS II EFFERVESCENT PACKET (SODIUM BICARB./CITRIC ACID/SIMETHICONE) As Ordered ONE; -E-Z-HD 98% w/w 340GM SUSP BTL As Ordered ONE; -E-Z-PAQUE 96% w/w SUSP 176GM BTL As Ordered ONE
[2020-12-04 11:33] LABS: ALBUMIN 3.1 GM/DL (3.2-5.2); ALT/SGPT 30 U/L (12-78); BILIRUBIN,TOTAL 0.3 MG/DL (0.2-1.0); BLOOD UREA NITROGEN 9 MG/DL (7-18); CALCIUM LEVEL 9.2 MG/DL (8.8-10.2); CARBON DIOXIDE LEVEL 24 MEQ/L (21-32); CHLORIDE LEVEL 113 MEQ/L (98-107); CHOLESTEROL LEVEL 152 MG/DL (<200); CHOLESTEROL RISK RATIO 3.534 (<5); CREATININE FOR GFR 0.76 MG/DL (0.55-1.30); GLOMERULAR FILTRATION RATE > 60.0 (>45); GLUCOSE, FASTING 121 MG/DL (70-100); HDL CHOLESTEROL 43 MG/DL (>40); LDL CHOLESTEROL 86 MG/DL (<100); MAGNESIUM LEVEL 1.9 MG/DL (1.8-2.4); NON-HDL-C 109 MG/DL; POTASSIUM SERUM 3.9 MEQ/L (3.5-5.1); SODIUM LEVEL 144 MEQ/L (136-145); TOTAL PROTEIN 6.9 GM/DL (6.4-8.2); TRIGLYCERIDES LEVEL 114 MG/DL (<150)
[2020-12-04 11:41] LABS: TOTAL 25(OH) VITAMIN D 43.5 NG/ML (30.0-100.0)
== END ==
LOC: M PLALAB 08:57
PROVIDERS: ATTEND Nurse Practitioner Family
DX: E78.2 Mixed hyperlipidemia (principal)

== ENCOUNTER 2021-02-24 17:58 | Day surgery (SDC) | payer MEDICARE ==
[~2021-02-24] VITALS: Ht 162.6 cm; Wt 68.3 kg
[2021-02-24] MEDS ORDERED: GLUCAGON INJ 1MG VIAL IV STA (18:38)
[2021-02-24 19:23] LABS: HEMOGLOBIN 14.4 g/dl (12.0-15.5); MEAN CORPUSCULAR HEMOGLOBIN 28.4 pg (27.0-33.0); MEAN CORPUSCULAR HGB CONC 33.5 g/dl (32.0-36.5); MEAN CORPUSCULAR VOLUME 84.8 fl (80.0-96.0); PLATELET COUNT, AUTOMATED 204 10^3/uL (150-450); RED BLOOD COUNT 5.07 10^6/uL (4.00-5.40); WHITE BLOOD COUNT 8.6 10^3/uL (4.0-10.0)
[2021-02-24 19:44] LABS: BLOOD UREA NITROGEN 9 MG/DL (7-18); CALCIUM LEVEL 8.8 MG/DL (8.8-10.2); CARBON DIOXIDE LEVEL 26 MEQ/L (21-32); CHLORIDE LEVEL 110 MEQ/L (98-107); CREATININE FOR GFR 0.79 MG/DL (0.55-1.30); GLOMERULAR FILTRATION RATE > 60.0 (>45); GLUCOSE, FASTING 88 MG/DL (70-100); POTASSIUM SERUM 3.2 MEQ/L (3.5-5.1); SODIUM LEVEL 144 MEQ/L (136-145)
[2021-02-24] MEDS ORDERED: LR 1,000 ML IV SCH ×2 (20:00→22:50)
[2021-02-24] MEDS ORDERED: HOME MED LIST COMPLETE! XX SCH (20:25)
[2021-02-24] MEDS ORDERED: KCL 10MEQ/100ML SWI (KRUN) 10 MEQ in IV 1 EA IV ONE (20:25)
[2021-02-24 20:37] LABS: RSV AMPLIFICATION NEGATIVE (NEGATIVE)
[2021-02-24] MEDS ORDERED: MIDAZOLAM INJ 2MG/2ML VIAL (J2250 PER 1MG) As Ordered ONE (20:52)
[2021-02-24] MEDS ORDERED: fentaNYL 100 MCG/2 ML INJECTION As Ordered ONE (20:52)
[2021-02-24] MEDS ORDERED: propofoL 200 MG/20 ML VIAL As Ordered ONE (20:53)
[2021-02-24] MEDS ORDERED: SUCCINYLCHOLINE 100 MG/5 ML SYRINGE (J0330) As Ordered ONE (20:53)
[2021-02-24] MEDS ORDERED: LIDOCAINE 2% 100MG/5ML SDV (FOR ANES.) As Ordered ONE (20:54)
[2021-02-24] MEDS ORDERED: dexameTHASONE 4 MG/ML 1ML VIAL (J1100 PER 1MG) As Ordered ONE (20:55)
[2021-02-24] MEDS ORDERED: ONDANSETRON 4MG/2ML VIAL As Ordered ONE (22:08)
[2021-02-24] MEDS ORDERED: HYDROMORPHONE HCL 0.5 MG/ 0.5 ML SYRINGE (J1170 PER 1) IV PRN (22:50)
[2021-02-24] MEDS ORDERED: oxyCODONE 5MG TAB PO PRN (22:50)
[2021-02-24] MEDS ORDERED: fentaNYL 100 MCG/2 ML INJECTION IV PRN (22:50)
[2021-02-24] MEDS ORDERED: ONDANSETRON 4MG/2ML VIAL IV PRN (22:50)
[2021-02-24 23:15] VITALS: BP 155/66
[2021-02-24 23:45] VITALS: BP 152/65
[2021-02-25 00:45] VITALS: BP 150/64
[2021-02-25 01:45] VITALS: BP 125/60
[2021-02-25 06:18] VITALS: BP 128/89
[2021-02-25] MEDS ORDERED: PANTOPRAZOLE 40MG VIAL (C9113 PER 1) IV SCH (09:00)
== END 2021-02-25 08:10 | disposition home or self-care (01) ==
LOC: M ED 17:58 → M SDC 19:56 → M MS5PR 23:10 → M SDC 02-25 08:10
PROVIDERS: ATTEND Surgery
DX: T18.128A Food in esophagus causing other injury, initial encounter (principal); Y92.89 Other specified places as the place of occurrence of the external cause; E78.5 Hyperlipidemia, unspecified; J44.9 Chronic obstructive pulmonary disease, unspecified; K21.9 Gastro-esophageal reflux disease without esophagitis; M54.9 Dorsalgia, unspecified; R51.9 Headache, unspecified; Z87.19 Personal history of other diseases of the digestive system; F99 Mental disorder, not otherwise specified; I69.393 Ataxia following cerebral infarction; I69.311 Memory deficit following cerebral infarction; Z79.899 Other long term (current) drug therapy; Z79.82 Long term (current) use of aspirin; Z79.02 Long term (current) use of antithrombotics/antiplatelets; Z88.4 Allergy status to anesthetic agent
CPT/HCPCS: 36415; 43247; 71045; 80048; 83605; 85027; 87040; 87631; 93005; 96374; 99284; J0330; J1100; J1610; J2250; J2405; J3010

== ENCOUNTER → 2021-05-01 | Outpatient (REF) | payer MEDICARE ==
[~2021-05-01] MED LIST changes: -D31000TA2 PO; +VITA100093 PO
[2021-05-02 11:18] LABS: BLOOD UREA NITROGEN 5 MG/DL (7-18); CARBON DIOXIDE LEVEL 30 MEQ/L (21-32); CHLORIDE LEVEL 109 MEQ/L (98-107); GLOMERULAR FILTRATION RATE > 60.0 (>45); GLUCOSE, FASTING 84 MG/DL (70-100); POTASSIUM SERUM 3.9 MEQ/L (3.5-5.1); SODIUM LEVEL 144 MEQ/L (136-145)
[2021-05-02 11:19] LABS: ALBUMIN 3.5 GM/DL (3.2-5.2); ALT/SGPT 31 U/L (12-78); BILIRUBIN,TOTAL 0.6 MG/DL (0.2-1.0); CALCIUM LEVEL 9.3 MG/DL (8.8-10.2); TOTAL PROTEIN 6.7 GM/DL (6.4-8.2)
== END ==
LOC: M SFHCPLAZ 10:34
PROVIDERS: ATTEND Nurse Practitioner Adult Health
DX: E78.2 Mixed hyperlipidemia (principal); E87.6 Hypokalemia

== ENCOUNTER → 2021-05-01 | Outpatient (CLI) | payer MEDICARE ==
[2021-05-01 15:43] LABS: BLOOD UREA NITROGEN 5 MG/DL (7-18); CREATININE FOR GFR 0.73 MG/DL (0.55-1.30); GLOMERULAR FILTRATION RATE > 60.0 (>45)
== END ==
LOC: M PLALAB 13:21
PROVIDERS: ATTEND Ophthalmology
DX: H53.8 Other visual disturbances (principal)

== ENCOUNTER → 2021-05-08 | Outpatient (CLI) | payer MEDICARE ==
[~2021-05-08] MED LIST changes: +PROHANCE 279.3MG/ML 15ML VIAL ONE
== END ==
LOC: M PLAIMG 12:01
PROVIDERS: ATTEND Ophthalmology
DX: H53.40 Unspecified visual field defects (principal)
CPT/HCPCS: 70543; 70553; A9576

== ENCOUNTER → 2021-11-29 | Outpatient (CLI) | payer MEDICARE ==
[~2021-11-29] MED LIST changes: -PROHANCE 279.3MG/ML 15ML VIAL ONE
[2021-11-29 13:34] LABS: HEMATOCRIT 45.6 % (36.0-47.0); HEMOGLOBIN 14.5 g/dl (12.0-15.5); MEAN CORPUSCULAR HEMOGLOBIN 27.1 pg (27.0-33.0); MEAN CORPUSCULAR HGB CONC 31.8 g/dl (32.0-36.5); MEAN CORPUSCULAR VOLUME 85.1 fl (80.0-96.0); PLATELET COUNT, AUTOMATED 198 10^3/uL (150-450); RED BLOOD COUNT 5.36 10^6/uL (4.00-5.40); WHITE BLOOD COUNT 8.2 10^3/uL (4.0-10.0)
[2021-11-29 14:44] LABS: ALBUMIN 3.5 GM/DL (3.2-5.2); ALT/SGPT 33 U/L (12-78); BILIRUBIN,TOTAL 0.4 MG/DL (0.2-1.0); BLOOD UREA NITROGEN 6 MG/DL (7-18); CALCIUM LEVEL 9.5 MG/DL (8.8-10.2); CARBON DIOXIDE LEVEL 29 MEQ/L (21-32); CHLORIDE LEVEL 107 MEQ/L (98-107); CHOLESTEROL LEVEL 158 MG/DL (<200); CHOLESTEROL RISK RATIO 3.674 (<5); CREATININE FOR GFR 0.81 MG/DL (0.55-1.30); GLOMERULAR FILTRATION RATE > 60.0 (>39); GLUCOSE, FASTING 90 MG/DL (70-100); HDL CHOLESTEROL 43 MG/DL (>40); LDL CHOLESTEROL 92 MG/DL (<100); MAGNESIUM LEVEL 1.9 MG/DL (1.8-2.4); NON-HDL-C 115 MG/DL; POTASSIUM SERUM 3.7 MEQ/L (3.5-5.1); SODIUM LEVEL 143 MEQ/L (136-145); TOTAL PROTEIN 7.2 GM/DL (6.4-8.2); TRIGLYCERIDES LEVEL 114 MG/DL (<150)
[2021-11-29 15:18] LABS: TOTAL 25(OH) VITAMIN D 44.7 NG/ML (30.0-100.0)
[2021-11-29 15:19] LABS: VITAMIN B12 LEVEL 1089 PG/ML (247-911)
== END ==
LOC: M PLALAB 10:44
PROVIDERS: ATTEND Nurse Practitioner Adult Health
DX: E78.2 Mixed hyperlipidemia (principal); I69.90 Unspecified sequelae of unspecified cerebrovascular disease; E55.9 Vitamin D deficiency, unspecified; K21.9 Gastro-esophageal reflux disease without esophagitis

== ENCOUNTER → 2022-08-12 | Outpatient (CLI) | payer OTHER ==
[~2022-08-12] MED LIST changes: +CLOP75TA99 PO; +CYAN-1 PO; -CYAN100050 PO; -PLAV1TAB2 PO
[2022-08-12 14:05] LABS: HEMATOCRIT 46.9 % (36.0-47.0); HEMOGLOBIN 14.8 g/dl (12.0-15.5); MEAN CORPUSCULAR HEMOGLOBIN 27.2 pg (27.0-33.0); MEAN CORPUSCULAR HGB CONC 31.6 g/dl (32.0-36.5); MEAN CORPUSCULAR VOLUME 86.2 fl (80.0-96.0); PLATELET COUNT, AUTOMATED 234 10^3/uL (150-450); RED BLOOD COUNT 5.44 10^6/uL (4.00-5.40); WHITE BLOOD COUNT 9.6 10^3/uL (4.0-10.0)
[2022-08-12 14:06] LABS: TOTAL 25(OH) VITAMIN D 39.4 NG/ML (20.0-100.0)
[2022-08-12 14:09] LABS: ALBUMIN 3.8 G/DL (3.2-5.2); ALKALINE PHOSPHATASE 100 U/L (46-116); ALT/SGPT < 9 U/L (7.0-40); AST/SGOT 25 U/L (<34); BILIRUBIN,TOTAL 0.4 MG/DL (0.3-1.2); BLOOD UREA NITROGEN 12 MG/DL (9-23); CALCIUM LEVEL 9.2 MG/DL (8.3-10.6); CARBON DIOXIDE LEVEL 30 MMOL/L (20-31); CHLORIDE LEVEL 107 MMOL/L (98-107); CHOLESTEROL LEVEL 155 MG/DL (<200); CHOLESTEROL RISK RATIO 3.19 (<5); CREATININE FOR GFR 0.72 MG/DL (0.55-1.30); GLOMERULAR FILTRATION RATE > 60.0 (>39); GLUCOSE, FASTING 97 MG/DL (74-106); HDL CHOLESTEROL 48.5 MG/DL (>40); LDL CHOLESTEROL 92.3 MG/DL (<100); NON-HDL-C 106.5 MG/DL; POTASSIUM SERUM 4.1 MMOL/L (3.5-5.1); SODIUM LEVEL 141 MMOL/L (136-145); TOTAL PROTEIN 7.7 G/DL (5.7-8.2); TRIGLYCERIDES LEVEL 71 MG/DL (<150); VITAMIN B12 LEVEL 1361 PG/ML (211-911)
[2022-08-12 14:22] LABS: FOLATE 10.8 NG/ML (>5.4)
== END ==
LOC: M PLALAB 11:00
PROVIDERS: ATTEND Nurse Practitioner Adult Health
DX: I69.90 Unspecified sequelae of unspecified cerebrovascular disease (principal); E78.2 Mixed hyperlipidemia; E55.9 Vitamin D deficiency, unspecified; K21.9 Gastro-esophageal reflux disease without esophagitis

== ENCOUNTER → 2022-09-03 | Outpatient (CLI) | payer OTHER | LOC: M PLAIMG 15:01 | PROVIDERS: ATTEND Nurse Practitioner Adult Health | DX: S09.93XA Unspecified injury of face, initial encounter (principal); X58.XXXA Exposure to other specified factors, initial encounter; Y92.9 Unspecified place or not applicable; Y93.9 Activity, unspecified; Y99.9 Unspecified external cause status ==

== ENCOUNTER → 2022-12-08 | Outpatient (CLI) | payer MEDICARE, OTHER ==
[2022-12-08 15:51] LABS: HEMATOCRIT 46.9 % (36.0-47.0); HEMOGLOBIN 15.1 g/dl (12.0-15.5); MEAN CORPUSCULAR HEMOGLOBIN 28.2 pg (27.0-33.0); MEAN CORPUSCULAR HGB CONC 32.2 g/dl (32.0-36.5); MEAN CORPUSCULAR VOLUME 87.7 fl (80.0-96.0); PLATELET COUNT, AUTOMATED 235 10^3/uL (150-450); RED BLOOD COUNT 5.35 10^6/uL (4.00-5.40); WHITE BLOOD COUNT 10.8 10^3/uL (4.0-10.0)
[2022-12-09 09:19] LABS: ALBUMIN 3.5 G/DL (3.2-5.2); ALKALINE PHOSPHATASE 87 U/L (46-116); ALT/SGPT 21 U/L (7.0-40); AST/SGOT 17 U/L (<34); BILIRUBIN,TOTAL 0.5 MG/DL (0.3-1.2); BLOOD UREA NITROGEN 15 MG/DL (9-23); CALCIUM LEVEL 9.3 MG/DL (8.3-10.6); CARBON DIOXIDE LEVEL 31 MMOL/L (20-31); CHLORIDE LEVEL 104 MMOL/L (98-107); CHOLESTEROL LEVEL 168 MG/DL (<200); CHOLESTEROL RISK RATIO 2.97 (<5); CREATININE FOR GFR 0.71 MG/DL (0.55-1.30); GLOMERULAR FILTRATION RATE > 60.0 (>39); GLUCOSE, FASTING 81 MG/DL (74-106); HDL CHOLESTEROL 56.4 MG/DL (>40); LDL CHOLESTEROL 89.8 MG/DL (<100); NON-HDL-C 111.6 MG/DL; SODIUM LEVEL 141 MMOL/L (136-145); TOTAL 25(OH) VITAMIN D 31.5 NG/ML (20.0-100.0); TOTAL PROTEIN 6.3 G/DL (5.7-8.2); TRIGLYCERIDES LEVEL 109 MG/DL (<150); VITAMIN B12 LEVEL 1027 PG/ML (211-911)
[2022-12-09 09:22] LABS: FOLATE 5.48 NG/ML (>5.4)
== END ==
LOC: M PLALAB 11:48
PROVIDERS: ATTEND Nurse Practitioner Adult Health
DX: I69.90 Unspecified sequelae of unspecified cerebrovascular disease (principal)

== ENCOUNTER → 2023-01-20 | Outpatient (CLI) | payer OTHER, MEDICAID ==
[~2023-01-20] MED LIST changes: -BIOT50004 PO; +BIOT5CAP8 PO; +PROHANCE 279.3MG/ML 5ML VIAL ONE
== END ==
LOC: M PLAIMG 14:00
PROVIDERS: ATTEND Ophthalmology
DX: H53.40 Unspecified visual field defects (principal)
CPT/HCPCS: 70553; A9576

== ENCOUNTER → 2023-02-27 | Outpatient (CLI) | payer OTHER, MEDICAID ==
[~2023-02-27] MED LIST changes: -PROHANCE 279.3MG/ML 5ML VIAL ONE
== END ==
LOC: M RAD 10:19
PROVIDERS: ATTEND Nurse Practitioner Adult Health
DX: Z12.2 Encounter for screening for malignant neoplasm of respiratory organs (principal); Z87.891 Personal history of nicotine dependence

== ENCOUNTER → 2023-03-06 | Outpatient (CLI) | payer OTHER, MEDICAID ==
[2023-03-06 13:18] LABS: INR 1.11
[2023-03-06 13:19] LABS: PARTIAL THROMBOPLASTIN TIME 28.9 SECONDS (24.8-34.2)
[2023-03-06 13:35] LABS: ALBUMIN 3.4 G/DL (3.2-5.2); ALKALINE PHOSPHATASE 82 U/L (46-116); ALT/SGPT 18 U/L (7.0-40); AST/SGOT 19 U/L (<34); BILIRUBIN,TOTAL 0.6 MG/DL (0.3-1.2); BLOOD UREA NITROGEN 6 MG/DL (9-23); CALCIUM LEVEL 8.9 MG/DL (8.3-10.6); CARBON DIOXIDE LEVEL 30 MMOL/L (20-31); CHLORIDE LEVEL 106 MMOL/L (98-107); CREATININE FOR GFR 0.65 MG/DL (0.55-1.30); GLOMERULAR FILTRATION RATE > 60.0 (>39); GLUCOSE, FASTING 85 MG/DL (74-106); POTASSIUM SERUM 3.3 MMOL/L (3.5-5.1); SODIUM LEVEL 141 MMOL/L (136-145)
== END ==
LOC: M PLALAB 11:50
PROVIDERS: ATTEND Physician Assistant Medical
DX: T39.1X2A Poisoning by 4-Aminophenol derivatives, intentional self-harm, initial encounter (principal); M25.561 Pain in right knee; M79.651 Pain in right thigh

== ENCOUNTER → 2023-03-16 | Outpatient (CLI) | payer OTHER, MEDICAID ==
[2023-03-16 18:27] LABS: C REACTIVE PROTEIN QUANTITATIV < 0.40 MG/DL (<1.0)
[2023-03-16 18:29] LABS: BASO # 0.1 10^3/uL (0.0-0.2); BASO % 0.7 % (0.0-1.0); EOS # 0.2 10^3/uL (0.0-0.5); EOS % 1.4 % (0.0-3.0); HEMATOCRIT 44.4 % (36.0-47.0); HEMOGLOBIN 14.4 g/dl (12.0-15.5); LYMPH # 2.9 10^3/uL (1.5-5.0); LYMPH % 27.1 % (24.0-44.0); MEAN CORPUSCULAR HEMOGLOBIN 28.3 pg (27.0-33.0); MEAN CORPUSCULAR HGB CONC 32.4 g/dl (32.0-36.5); MEAN CORPUSCULAR VOLUME 87.4 fl (80.0-96.0); MONO # 0.8 10^3/uL (0.0-0.8); MONO % 7.5 % (2.0-8.0); NEUTROPHILS # 6.6 10^3/uL (1.5-8.5); NEUTROPHILS % 62.9 % (36.0-66.0); PLATELET COUNT, AUTOMATED 190 10^3/uL (150-450); RED BLOOD COUNT 5.08 10^6/uL (4.00-5.40); WHITE BLOOD COUNT 10.5 10^3/uL (4.0-10.0)
[2023-03-16 18:29] LABS: ALBUMIN 3.6 G/DL (3.2-5.2); ALKALINE PHOSPHATASE 86 U/L (46-116); ALT/SGPT 23 U/L (7.0-40); AST/SGOT 21 U/L (<34); BILIRUBIN,TOTAL 0.5 MG/DL (0.3-1.2); BLOOD UREA NITROGEN 10 MG/DL (9-23); CALCIUM LEVEL 9.2 MG/DL (8.3-10.6); CARBON DIOXIDE LEVEL 32 MMOL/L (20-31); CHLORIDE LEVEL 104 MMOL/L (98-107); CREATININE FOR GFR 0.68 MG/DL (0.55-1.30); GLOMERULAR FILTRATION RATE > 60.0 (>39); GLUCOSE, FASTING 77 MG/DL (74-106); POTASSIUM SERUM 3.1 MMOL/L (3.5-5.1); SODIUM LEVEL 142 MMOL/L (136-145); TOTAL PROTEIN 7.3 G/DL (5.7-8.2)
[2023-03-16 18:30] LABS: RHEUMATOID FACTOR QUANT < 3.5 IU/ML (<14)
[2023-03-16 18:31] LABS: TOTAL 25(OH) VITAMIN D 29.8 NG/ML (20.0-100.0)
[2023-03-16 19:00] LABS: ERYTHROCYTE SEDIMENTATION RATE 45 mm/hr (0-30)
[2023-03-16 19:04] LABS: HEPATITIS C VIRUS ABY INDEX 0.02 INDEX (<0.8)
== END ==
LOC: M PLALAB 16:03
PROVIDERS: ATTEND Nurse Practitioner Adult Health
DX: L40.9 Psoriasis, unspecified (principal); Z11.3 Encounter for screening for infections with a predominantly sexual mode of transmission; Z11.59 Encounter for screening for other viral diseases; Z72.89 Other problems related to lifestyle

== ENCOUNTER → 2023-03-21 | Outpatient (CLI) | payer OTHER, MEDICAID | LOC: M RAD 10:35 | PROVIDERS: ATTEND Physician Assistant Medical | DX: M25.561 Pain in right knee (principal); M79.651 Pain in right thigh; M25.461 Effusion, right knee ==

== ENCOUNTER → 2023-05-20 | Outpatient (CLI) | payer OTHER, MEDICAID ==
[2023-05-20 14:07] LABS: ALKALINE PHOSPHATASE 87 U/L (46-116); ALT/SGPT 23 U/L (7.0-40); AST/SGOT 21 U/L (<34); BILIRUBIN,TOTAL 0.5 MG/DL (0.3-1.2); BLOOD UREA NITROGEN 9 MG/DL (9-23); CALCIUM LEVEL 8.9 MG/DL (8.3-10.6); CARBON DIOXIDE LEVEL 30 MMOL/L (20-31); CHLORIDE LEVEL 105 MMOL/L (98-107); CREATININE FOR GFR 0.68 MG/DL (0.55-1.30); GLOMERULAR FILTRATION RATE > 60.0 (>39); GLUCOSE, FASTING 98 MG/DL (74-106); POTASSIUM SERUM 3.2 MMOL/L (3.5-5.1); SODIUM LEVEL 139 MMOL/L (136-145); TOTAL PROTEIN 6.8 G/DL (5.7-8.2)
== END ==
LOC: M PLALAB 08:30
PROVIDERS: ATTEND Physician Assistant
DX: S82.124D Nondisplaced fracture of lateral condyle of right tibia, subsequent encounter for closed fracture with routine healing (principal); E87.6 Hypokalemia

== ENCOUNTER → 2023-05-20 | Outpatient (CLI) | payer OTHER, MEDICAID ==
[2023-05-20 14:09] LABS: BLOOD UREA NITROGEN 7 MG/DL (9-23); CALCIUM LEVEL 8.5 MG/DL (8.3-10.6); CARBON DIOXIDE LEVEL 32 MMOL/L (20-31); CHLORIDE LEVEL 106 MMOL/L (98-107); CREATININE FOR GFR 0.67 MG/DL (0.55-1.30); GLOMERULAR FILTRATION RATE > 60.0 (>39); GLUCOSE, FASTING 92 MG/DL (74-106); POTASSIUM SERUM 3.4 MMOL/L (3.5-5.1); SODIUM LEVEL 144 MMOL/L (136-145)
== END ==
LOC: M PLALAB 08:26
PROVIDERS: ATTEND Nurse Practitioner Adult Health
DX: E87.6 Hypokalemia (principal)

== ENCOUNTER → 2023-06-26 | Outpatient (CLI) | payer OTHER, MEDICAID ==
[2023-06-26 15:13] LABS: ALKALINE PHOSPHATASE 92 U/L (46-116); ALT/SGPT 22 U/L (7.0-40); AST/SGOT 21 U/L (<34); BILIRUBIN,TOTAL 0.4 MG/DL (0.3-1.2); BLOOD UREA NITROGEN 8 MG/DL (9-23); CALCIUM LEVEL 9.2 MG/DL (8.3-10.6); CARBON DIOXIDE LEVEL 30 MMOL/L (20-31); CHLORIDE LEVEL 105 MMOL/L (98-107); CREATININE FOR GFR 0.68 MG/DL (0.55-1.30); GLOMERULAR FILTRATION RATE > 60.0 (>39); GLUCOSE, FASTING 100 MG/DL (74-106); POTASSIUM SERUM 3.6 MMOL/L (3.5-5.1); SODIUM LEVEL 142 MMOL/L (136-145); TOTAL PROTEIN 7.3 G/DL (5.7-8.2)
== END ==
LOC: M PLALAB 09:01
PROVIDERS: ATTEND Nurse Practitioner Adult Health
DX: E87.6 Hypokalemia (principal)

== ENCOUNTER → 2023-08-04 | Outpatient (CLI) | payer OTHER, MEDICAID ==
[~2023-08-04] MED LIST changes: +BENA25CA4 PO; +NEUR300C PO; +POTA10CA70 PO; +PROHANCE 279.3MG/ML 15ML VIAL ONE; +PYRI100L PO; +ULTR5TAB PO
== END ==
LOC: M PLAIMG 09:51
PROVIDERS: ATTEND Physician Assistant
DX: S82.124D Nondisplaced fracture of lateral condyle of right tibia, subsequent encounter for closed fracture with routine healing (principal)
CPT/HCPCS: 73723; A9576

== ENCOUNTER 2023-10-11 19:51 | Emergency (ER) | payer OTHER, MEDICAID ==
[~2023-10-11] VITALS: Ht 162.6 cm; Wt 67.1 kg
[~2023-10-11 19:51] MED LIST changes: -PROHANCE 279.3MG/ML 15ML VIAL ONE
[2023-10-11 19:52] VITALS: TEMP 98.8
[2023-10-11] MEDS: GLUCAGON INJ 1MG VIAL IV STA (22:02)
[2023-10-11 23:22] VITALS: BP 176/74; O2SAT 97
== END 2023-10-11 23:42 | disposition home or self-care (01) ==
LOC: M ED 19:51
DX: T18.108A Unspecified foreign body in esophagus causing other injury, initial encounter (principal); X58.XXXA Exposure to other specified factors, initial encounter; Y92.89 Other specified places as the place of occurrence of the external cause; Y93.89 Activity, other specified; Y99.8 Other external cause status; Z88.4 Allergy status to anesthetic agent; E78.5 Hyperlipidemia, unspecified; K21.9 Gastro-esophageal reflux disease without esophagitis; K22.2 Esophageal obstruction; Z79.899 Other long term (current) drug therapy; Z79.82 Long term (current) use of aspirin
CPT/HCPCS: 70360; 96374; 99284; J1610

== ENCOUNTER → 2023-11-16 | Outpatient (REF) | payer OTHER, MEDICAID ==
[2023-11-16 18:32] LABS: APPEARANCE, URINE HAZY (CLEAR); BACTERIA, URINE AUTO 1+ (NEGATIVE); BILIRUBIN, URINE AUTO NEGATIVE (NEGATIVE); BLOOD, URINE BLOOD NEGATIVE (NEGATIVE); COLOR, URINE YELLOW (YELLOW); GLUCOSE, URINE (UA) AUTO NEGATIVE (NEGATIVE); KETONE, URINE AUTO NEGATIVE (NEGATIVE); LEUKOCYTE ESTERASE, URINE AUTO 3+ (NEGATIVE); MUCUS, URINE SMALL (NEGATIVE); NITRITE, URINE AUTO NEGATIVE (NEGATIVE); PROTEIN, URINE AUTO NEGATIVE (NEGATIVE); RBC, URINE AUTO 5 /HPF (0-3); SPECIFIC GRAVITY URINE AUTO 1.008 (1.002-1.035); SQUAMOUS EPITHELIAL CELL UR AU 1 /HPF (0-6); UROBILINOGEN, URINE AUTO 0.2 mg/dL (0.0-2.0); WBC, URINE AUTO 79 /HPF (0-3)
== END ==
LOC: M SFHCPLAZ 17:09
PROVIDERS: ATTEND Physician Assistant Medical
DX: R30.0 Dysuria (principal)

== ENCOUNTER → 2023-12-01 | Day surgery (SDC) | payer OTHER, MEDICAID ==
[~2023-12-01] VITALS: Ht 162.6 cm; Wt 63.5 kg
[~2023-12-01] MED LIST changes: +ALBU8.5H INH; +CLOP75TA2 PO; +FLUT1BLS5 INH; +GABA-1172 PO; +GLYCOPYRROLATE INJ 0.2 MG/ML 2 ML VIAL As Ordered ONE; +LIDOCAINE 2% 100MG/5ML SDV (FOR ANES.) As Ordered ONE; +NS 250 ML IV ONE; +SECU300P SC; +propofoL 200 MG/20 ML VIAL As Ordered ONE
[2023-12-01 12:34] VITALS: TEMP 96
[2023-12-01 12:51] VITALS: BP 129/59; O2SAT 96
== END | disposition home or self-care (01) ==
LOC: M OPP 09:21
PROVIDERS: ATTEND Internal Medicine Gastroenterology
DX: K22.2 Esophageal obstruction (principal); Z12.11 Encounter for screening for malignant neoplasm of colon; Z12.12 Encounter for screening for malignant neoplasm of rectum; K21.00 Gastro-esophageal reflux disease with esophagitis, without bleeding; K63.5 Polyp of colon; K57.30 Diverticulosis of large intestine without perforation or abscess without bleeding; K64.8 Other hemorrhoids; K63.89 Other specified diseases of intestine; R13.10 Dysphagia, unspecified; I69.311 Memory deficit following cerebral infarction; I69.398 Other sequelae of cerebral infarction; K76.0 Fatty (change of) liver, not elsewhere classified; E78.00 Pure hypercholesterolemia, unspecified; R91.8 Other nonspecific abnormal finding of lung field; Z79.02 Long term (current) use of antithrombotics/antiplatelets; Z79.899 Other long term (current) drug therapy; Z79.82 Long term (current) use of aspirin; Z88.5 Allergy status to narcotic agent
CPT/HCPCS: 43239; 43249; 45380; 88305; J1596

== ENCOUNTER → 2023-12-07 | Outpatient (CLI) | payer OTHER, MEDICAID ==
[~2023-12-07] MED LIST changes: -GLYCOPYRROLATE INJ 0.2 MG/ML 2 ML VIAL As Ordered ONE; -LIDOCAINE 2% 100MG/5ML SDV (FOR ANES.) As Ordered ONE; -NS 250 ML IV ONE; -propofoL 200 MG/20 ML VIAL As Ordered ONE
== END ==
LOC: M PLALAB 10:24 → M PLAIMG 10:24
PROVIDERS: ATTEND Nurse Practitioner Adult Health
DX: J44.9 Chronic obstructive pulmonary disease, unspecified (principal)

== ENCOUNTER → 2024-01-04 | Outpatient (CLI) | payer OTHER, MEDICAID ==
[~2024-01-04] MED LIST changes: +ATOR-398 PO; -LIPI80TA PO
[2024-01-04 15:20] LABS: ALBUMIN 3.1 G/DL (3.2-5.2); ALKALINE PHOSPHATASE 92 U/L (35-104); ALT/SGPT 13 U/L (7.0-40); AST/SGOT 17 U/L (<34); BILIRUBIN,TOTAL 0.4 MG/DL (0.3-1.2); BLOOD UREA NITROGEN 7 MG/DL (9-23); CALCIUM LEVEL 9.6 MG/DL (8.3-10.6); CARBON DIOXIDE LEVEL 31 MMOL/L (20-31); CHLORIDE LEVEL 105 MMOL/L (98-107); CHOLESTEROL LEVEL 157 MG/DL (<200); CHOLESTEROL RISK RATIO 4.57 (<5); CREATININE FOR GFR 0.69 MG/DL (0.55-1.30); GLOMERULAR FILTRATION RATE > 60.0 (>39); GLUCOSE, FASTING 98 MG/DL (74-106); HDL CHOLESTEROL 34.3 MG/DL (>40); LDL CHOLESTEROL 96.3 MG/DL (<100); MAGNESIUM LEVEL 1.5 MG/DL (1.8-2.4); NON-HDL-C 122.7 MG/DL; POTASSIUM SERUM 3.2 MMOL/L (3.5-5.1); SODIUM LEVEL 143 MMOL/L (136-145); TOTAL PROTEIN 7.6 G/DL (5.7-8.2); TRIGLYCERIDES LEVEL 132 MG/DL (<150)
== END ==
LOC: M PLALAB 10:27
PROVIDERS: ATTEND Nurse Practitioner Adult Health
DX: E87.6 Hypokalemia (principal); E78.2 Mixed hyperlipidemia; L92.0 Granuloma annulare

== ENCOUNTER → 2024-05-12 | Outpatient (CLI) | payer MEDICARE, MEDICAID | LOC: M RAD 09:33 | PROVIDERS: ATTEND Internal Medicine Pulmonary Disease | DX: Z87.891 Personal history of nicotine dependence (principal) ==

== ENCOUNTER → 2024-05-25 | Outpatient (CLI) | payer MEDICARE ==
[2024-05-25 13:42] LABS: ALBUMIN 3.5 G/DL (3.2-5.2); ALKALINE PHOSPHATASE 84 U/L (35-104); ALT/SGPT 23 U/L (7.0-40); AST/SGOT 24 U/L (<34); BILIRUBIN,TOTAL 0.7 MG/DL (0.3-1.2); BLOOD UREA NITROGEN < 5 MG/DL (9-23); CALCIUM LEVEL 9.5 MG/DL (8.3-10.6); CARBON DIOXIDE LEVEL 31 MMOL/L (20-31); CHLORIDE LEVEL 103 MMOL/L (98-107); CHOLESTEROL LEVEL 151 MG/DL (<200); CHOLESTEROL RISK RATIO 3.62 (<5); CREATININE FOR GFR 0.72 MG/DL (0.55-1.30); GLOMERULAR FILTRATION RATE 88.8 (>39); GLUCOSE, FASTING 89 MG/DL (74-106); HDL CHOLESTEROL 41.6 MG/DL (>40); LDL CHOLESTEROL 86.8 MG/DL (<100); MAGNESIUM LEVEL 1.6 MG/DL (1.8-2.4); NON-HDL-C 109.4 MG/DL; POTASSIUM SERUM 3.7 MMOL/L (3.5-5.1); SODIUM LEVEL 143 MMOL/L (136-145); TOTAL PROTEIN 7.5 G/DL (5.7-8.2); TRIGLYCERIDES LEVEL 113 MG/DL (<150)
== END ==
LOC: M PLALAB 12:06
PROVIDERS: ATTEND Nurse Practitioner Adult Health
DX: E87.6 Hypokalemia (principal); E78.2 Mixed hyperlipidemia; E55.9 Vitamin D deficiency, unspecified

== ENCOUNTER → 2024-06-28 | Outpatient (CLI) | payer MEDICARE, MEDICAID ==
[~2024-06-28] MED LIST changes: +AMIT25TA19 PO; +APRE1TAB PO; +CHEL100T4 PO; +PIME1CRE TOP
[2024-06-28 11:27] LABS: BASO # 0.1 10^3/uL (0.0-0.2); BASO % 0.8 % (0.0-1.0); EOS # 0.2 10^3/uL (0.0-0.5); EOS % 2.6 % (0.0-3.0); HEMATOCRIT 41.1 % (36.0-47.0); HEMOGLOBIN 13.8 g/dl (12.0-15.5); LYMPH # 2.9 10^3/uL (1.5-5.0); LYMPH % 33.1 % (24.0-44.0); MEAN CORPUSCULAR HEMOGLOBIN 28.5 pg (27.0-33.0); MEAN CORPUSCULAR HGB CONC 33.6 g/dl (32.0-36.5); MEAN CORPUSCULAR VOLUME 84.9 fl (80.0-96.0); MONO # 0.7 10^3/uL (0.0-0.8); MONO % 7.9 % (2.0-8.0); NEUTROPHILS # 4.9 10^3/uL (1.5-8.5); NEUTROPHILS % 55.5 % (36.0-66.0); PLATELET COUNT, AUTOMATED 241 10^3/uL (150-450); RED BLOOD COUNT 4.84 10^6/uL (4.00-5.40); WHITE BLOOD COUNT 8.8 10^3/uL (4.0-10.0)
[2024-06-28 11:58] LABS: ALBUMIN 3.5 G/DL (3.2-5.2); BILIRUBIN,TOTAL 0.6 MG/DL (0.3-1.2); CALCIUM LEVEL 9.4 MG/DL (8.3-10.6); CREATININE FOR GFR 0.72 MG/DL (0.55-1.30); GLOMERULAR FILTRATION RATE 88.8 (>39); POTASSIUM SERUM 4.2 MMOL/L (3.5-5.1); TOTAL PROTEIN 7.7 G/DL (5.7-8.2)
== END ==
LOC: M RAD 10:25
PROVIDERS: ATTEND Podiatrist
DX: M79.671 Pain in right foot (principal)

== ENCOUNTER 2024-08-22 07:18 | Emergency (ER) | payer MEDICARE, MEDICAID ==
[~2024-08-22] VITALS: Ht 160 cm; Wt 60.4 kg
[2024-08-22] MEDS ORDERED: TAPI60CR TOP (07:33)
[2024-08-22 08:03] VITALS: TEMP 97.6
[2024-08-22 08:53] LABS: PLATELET COUNT, AUTOMATED 207 10^3/uL (150-450)
[2024-08-22] MEDS: GLUCAGON INJ 1 MG VIAL IV STA (08:58)
[2024-08-22 09:25] LABS: CALCIUM LEVEL 9.7 MG/DL (8.3-10.6); CARBON DIOXIDE LEVEL 27 MMOL/L (20-31); CHLORIDE LEVEL 105 MMOL/L (98-107); CREATININE FOR GFR 0.66 MG/DL (0.55-1.30); GLOMERULAR FILTRATION RATE > 90.0 (>39); POTASSIUM SERUM 3.5 MMOL/L (3.5-5.1); SODIUM LEVEL 145 MMOL/L (136-145)
[2024-08-22] MEDS ORDERED: APRE30TA3 PO (12:19)
[2024-08-22] MEDS ORDERED: HOME MED LIST COMPLETE! XX SCH (12:20)
[2024-08-22 12:30] VITALS: BP 157/70
[2024-08-22 12:34] VITALS: O2SAT 93
== END 2024-08-22 12:50 | disposition home or self-care (01) ==
LOC: M ED 07:18
DX: T18.128A Food in esophagus causing other injury, initial encounter (principal); K21.9 Gastro-esophageal reflux disease without esophagitis; F10.10 Alcohol abuse, uncomplicated; Z87.891 Personal history of nicotine dependence; Z88.8 Allergy status to other drugs, medicaments and biological substances; Z79.1 Long term (current) use of non-steroidal anti-inflammatories (NSAID); Z79.899 Other long term (current) drug therapy
CPT/HCPCS: 80048; 85027; 96374; 99285; J1610

== ENCOUNTER → 2024-11-16 | Outpatient (CLI) | payer MEDICARE, MEDICAID ==
[~2024-11-16] MED LIST changes: +APRE30TA3 PO; +TAPI60CR TOP
[2024-11-16 15:37] LABS: ALT/SGPT 16.0 U/L (7.0-40); AST/SGOT 19.0 U/L (<34); CALCIUM LEVEL 9.3 MG/DL (8.3-10.6); CARBON DIOXIDE LEVEL 31.0 MMOL/L (20-31); CHLORIDE LEVEL 103.0 MMOL/L (98-107); CHOLESTEROL LEVEL 153.0 MG/DL (<200); CHOLESTEROL RISK RATIO 3.47 (<5); CREATININE FOR GFR 0.71 MG/DL (0.55-1.30); GLOMERULAR FILTRATION RATE 89.7 (>39); LDL CHOLESTEROL 84.2 MG/DL (<100); MAGNESIUM LEVEL 1.7 MG/DL (1.8-2.4); NON-HDL-C 109.0 MG/DL; POTASSIUM SERUM 3.5 MMOL/L (3.5-5.1); SODIUM LEVEL 145.0 MMOL/L (136-145); TRIGLYCERIDES LEVEL 124.0 MG/DL (<150)
== END ==
LOC: M PLALAB 11:37
PROVIDERS: ATTEND Nurse Practitioner Adult Health
DX: E55.9 Vitamin D deficiency, unspecified (principal); K76.0 Fatty (change of) liver, not elsewhere classified; E78.2 Mixed hyperlipidemia; K21.9 Gastro-esophageal reflux disease without esophagitis

== ENCOUNTER → 2024-12-02 | Outpatient (REF) | payer MEDICARE, MEDICAID ==
[2024-12-02 15:43] LABS: APPEARANCE, URINE MANUAL TURBID (CLEAR); COLOR, URINE MANUAL RED (YELLOW)
[2024-12-02 15:44] LABS: PH,URINE MAN 5.0 UNITS (5.0 - 7.0); SPECIFIC GRAVITY,URINE MANUAL 1.030 (1.002-1.035)
[2024-12-02 15:45] LABS: BILIRUBIN, URINE MANUAL OBSCURED (NEGATIVE); BLOOD URINE MANUAL OBSCURED (NEGATIVE); GLUCOSE, URINE (UA) MANUAL OBSCURED mg/dL (NEGATIVE); KETONE, URINE MANUAL OBSCURED mg/dL (NEGATIVE); LEUKOCYTE ESTERASE, URINE MAN OBSCURED (NEGATIVE); NITRITE, URINE MANUAL OBSCURED (NEGATIVE); PROTEIN, URINE MANUAL OBSCURED mg/dL (NEGATIVE); UROBILINOGEN, URINE MANUAL OBSCURED mg/dl (NORMAL)
[2024-12-02 16:03] LABS: BACTERIA, URINE NONE SEEN; HYALINE CAST, URINE NONE SEEN /lpf (0-1); SQUAMOUS EPITHELIAL CELL URINE SMALL AMOUNT /hpf (SMALL AMT); WBC, URINE 15-20 /hpf (0-3)
[2024-12-02 16:04] LABS: AMORPHOUS SEDIMENT, URINE LARGE AMOUNT (NEGATIVE); MUCUS, URINE SMALL AMOUNT (NEGATIVE)
== END ==
LOC: M SFHCPLAZ 15:06
DX: R30.0 Dysuria (principal)